=== PATIENT | male | born 1975 | race Caucasian/White ===

== ENCOUNTER 2023-05-13 14:44 | Outpatient (CLI) | payer OTHER, SELFPAY ==
--- NOTE | ~2023-05-13 | US_ITS ---
EXAMINATION: US renal BI DATE: 05/13/2023 16:53 INDICATION: Left kidney stone post lithotripsy TECHNIQUE: Multiple ultrasound grayscale images of the kidneys were obtained. COMPARISON: None. FINDINGS: The right kidney measures 9.9 x 5.3 x 5.9 cm. The left kidney measures 10.5 x 5.5 x 5.5 cm. The kidne ys demonstrate normal echogenicity. There is no hydronephrosis in either kidney. No stones identifie d. The bladder is normal with calculated prevoid bladder volume of 360 mL calculated postvoid residua l volume of 13 mL. IMPRESSION: 1. Normal kidneys without hydronephrosis. Reviewed, dictated and finalized at location A.
== END 2023-05-13 14:45 | disposition home or self-care (01) ==
PROVIDERS: Visit Provider Urology
DX: N20.0 Calculus of kidney (principal)
CPT/HCPCS: 76775

== ENCOUNTER 2023-12-27 00:30 | Day surgery (SDC) | payer OTHER, SELFPAY ==
[2023-12-14 13:45] VITALS: BMI 48.0
[2023-12-27] MEDS: LACTATED RINGERS 1,000 ML 150 ML IV CONT (09:39)
--- NOTE | 2023-12-27 10:17 | WPDANESEPPF ---
Anes - Initial Pre Proc Eval Procedure: Operation Date: 12/27/23 11:00 Proposed Procedures p Screening Colonoscopy - Scar Bynum MD Date/Time: 12/27/23 10:17 Surgeon: Scar Bynum MD Pre Op Diagnosis: neoplasm screening Patient Data Age: 48 Gender: M Height: 1.78 m Weight: 157.1 kg Allergies Allergy/AdvReac Type Severity Reaction Status Date / Time No Known Allergies Allergy Verified 12/27/23 09:30 Home Medications Medication Instructions Recorded Confirmed Type albuterol sulfate 90 mcg/actuation 90 mcg inhalation PRN PRN Wheezing 12/14/23 12/14/23 History aerosol inhaler alprazolam 1 mg tablet 1 mg PO BID PRN Anxiety 12/14/23 12/14/23 History amiodarone 200 mg tablet 200 mg PO DAILY 12/14/23 12/14/23 History apixaban 5 mg tablet (Eliquis) 5 mg PO DAILY 12/14/23 12/27/23 History carvedilol 6.25 mg tablet (Coreg) 6.25 mg PO BID 12/14/23 12/14/23 History diltiazem HCl 180 mg capsule,24 180 mg PO DAILY 12/14/23 12/14/23 History hr,extended release furosemide 40 mg tablet 40 mg PO DAILY 12/14/23 12/14/23 History methocarbamol 500 mg tablet 500 mg PO DAILY 12/14/23 12/14/23 History montelukast 10 mg tablet 10 mg PO DAILY 12/14/23 12/14/23 History sacubitril 24 mg-valsartan 26 mg 24 - 26 tablet PO BID 12/14/23 12/14/23 History tablet (Entresto) Patient hx anesthesia problems: none Family hx anesthesia problems: none Results Review: All pre-operative results and documents have been reviewed as part of the pre-operative evaluation. [facility] Social History Social History Smoking status: Former smoker Tobacco type: cigarettes and cigars Alcohol intake: current Drinks per week: 15 Substance use type: marijuana Other substance usage details: once or twice a year Living arrangements: alone Spiritual care concerns: No Anes - Eval Final PreProcedure Day of Procedure 12/27/23 10:17 Patient weight: super morbidly obese Heart: regular rate and rhythm Lungs: clear to auscultation Airway: Mallampati scale class II Neurological: alert and oriented Last oral intake: >/= 8 hours ASA classification: IV Emergent: no Anesthetic plan: proceed Anesthesia type and monitoring: general GIVS and standard monitoring Results Review: All pre-operative results and documents have been reviewed as part of the pre-operative evaluation. Informed Consent: The patient's anesthetic plan and its attendant risks and benefits were discussed with the patient/family/POA. Questions were solicited and answers provided to the satisfaction of the patient/family/POA.
--- NOTE | 2023-12-27 10:20 | PM.HPGS ---
History of Present Illness History of Present Illness Consent: Risks, benefits, and alternatives have been discussed and questions answered. Patient agrees to proceed with procedure. Chief complaint: neoplasm screening Narrative: Burke Triana is a 48 year old male here for first screening colonoscopy Review of Systems Review of Systems: All systems reviewed & are unremarkable except as noted in HPI and below PMFSH Past Medical History Medical History (Updated 12/27/23 @ 10:23 by Scar Bynum MD) Colon cancer screening Social History Social History Smoking status: Former smoker Tobacco type: cigarettes and cigars Alcohol intake: current Drinks per week: 15 Substance use type: marijuana Other substance usage details: once or twice a year Living arrangements: alone Spiritual care concerns: No Meds Home Medications and Allergies Home Medications Medication Instructions Recorded Confirmed Type albuterol sulfate 90 mcg/actuation 90 mcg inhalation PRN PRN Wheezing 12/14/23 12/14/23 History aerosol inhaler alprazolam 1 mg tablet 1 mg PO BID PRN Anxiety 12/14/23 12/14/23 History amiodarone 200 mg tablet 200 mg PO DAILY 12/14/23 12/14/23 History apixaban 5 mg tablet (Eliquis) 5 mg PO DAILY 12/14/23 12/27/23 History carvedilol 6.25 mg tablet (Coreg) 6.25 mg PO BID 12/14/23 12/14/23 History diltiazem HCl 180 mg capsule,24 180 mg PO DAILY 12/14/23 12/14/23 History hr,extended release furosemide 40 mg tablet 40 mg PO DAILY 12/14/23 12/14/23 History methocarbamol 500 mg tablet 500 mg PO DAILY 12/14/23 12/14/23 History montelukast 10 mg tablet 10 mg PO DAILY 12/14/23 12/14/23 History sacubitril 24 mg-valsartan 26 mg 24 - 26 tablet PO BID 12/14/23 12/14/23 History tablet (Entresto) Allergies Allergy/AdvReac Type Severity Reaction Status Date / Time No Known Allergies Allergy Verified 12/27/23 09:30 Exam Const: General: comfortable and no acute distress HENMT: Face/Nose/Sinus: Normal nares present Eyes: General: appearance normal, both eyes and all related structures Neck: Neck: no JVD Resp: Auscultation: clear to auscultation bilaterally Cardio: Rate: regular rate Rhythm: regular rhythm GI: Inspection: non-distended GI Palp: Yes Soft to palpation Skin: General skin exam: normal color Neuro: General: gait normal Speech: normal speech Extrem: General: normal to inspection Psych: Mental Status: mental status grossly normal Assessment and Plan Assessment and plan (1) Colon cancer screening: Code(s): Z12.11 - Encounter for screening for malignant neoplasm of colon Status: Acute Assessment and Plan: colonoscopy
[2023-12-27 10:37] VITALS: BP 122/62; PULSE 76; RESP 18; O2SAT 98
[2023-12-27 10:47] VITALS: BP 128/67; PULSE 76; RESP 19; O2SAT 98
[2023-12-27 10:57] VITALS: BP 129/66; PULSE 77; RESP 18; O2SAT 100
== END 2023-12-27 11:05 | disposition home or self-care (01) ==
PROVIDERS: Visit Provider Internal Medicine Gastroenterology
PROC: 0DJD8ZZ Inspection of Lower Intestinal Tract, Via Natural or Artificial Opening Endoscopic (ICD-10-PCS; CPT 45378; principal; 2023-12-27 11:00)
DX: Z12.11 Encounter for screening for malignant neoplasm of colon (principal); D12.4 Benign neoplasm of descending colon; D12.5 Benign neoplasm of sigmoid colon; K64.8 Other hemorrhoids; K57.30 Diverticulosis of large intestine without perforation or abscess without bleeding; F12.90 Cannabis use, unspecified, uncomplicated; E66.01 Morbid (severe) obesity due to excess calories; Z68.42 Body mass index [BMI] 45.0-49.9, adult; Z79.51 Long term (current) use of inhaled steroids; Z79.01 Long term (current) use of anticoagulants; Z87.891 Personal history of nicotine dependence
CPT/HCPCS: 45385; 88305; J2704; J7120

== ENCOUNTER 2025-03-12 10:33 | Inpatient (IN) | payer OTHER, SELFPAY ==
[2025-03-12] VITALS (8 sets, daily range): BP systolic 107–132; BP diastolic 60–65; PULSE 78–81; RESP 16–18; TEMP 36.4–37.6; O2SAT 96–100; BMI 52.6
--- NOTE | ~2025-03-12 | US_ITS ---
EXAMINATION: US arterial ankle brachial ind DATE: 03/12/2025 16:11 INDICATION: Chronic ulcerations at the bilateral lower limbs TECHNIQUE: Segmental pressures and plethysmographic and Doppler waveforms of the brachial and lower e xtremity arteries were obtained. COMPARISON: None. FINDINGS: Right and left brachial artery pressures of 137 mm Hg and 139 mm Hg, respectively, are concordant (no rmal difference <= 30 mmHg). The right ankle-brachial index (CALIN) is 1.15 (normal >= 0.9-1.0). The right great toe-brachial index (TBI) is 0.90 (normal >= 0.65). Arterial Doppler waveforms are biphasic with brisk systolic upstrokes at both right posterior tibial and dorsalis pedis arteries. The left CALIN is 0.87. The left TBI is 0.60. Arterial Doppler waveforms are biphasic with brisk systol ic upstrokes at both left posterior tibial and dorsalis pedis arteries. IMPRESSION: 1. 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 2. No significant arterial occlusive disease in the right lower limb with normal right CALIN and TBI Reviewed, dictated and finalized at location A. IMPRESSION: 1. 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 2. No significant arterial occlusive disease in the right lower limb with jeramy l right CALIN and TBI
--- NOTE | ~2025-03-12 | CT_ITS ---
Procedure: CT LE LT wo con Ordering provider: Misa Cruz APRN History: . evaluate for abscess, LLE, has CLAUDIA . Comparison: None. Technique: Thin slice axial CT of the No IV contrast was given. Sagittal and coronal reformatted imag es were also obtained and reviewed. Radiation reduction technique utilized. The dose-length product w as 1177.06 mGy-cm. Findings: BONES: No acute osseous abnormal masses. No fracture or osteomyelitis seen. JOINT SPACES: Severe osteoarthritic changes of the left knee. SOFT TISSUES: Subcutaneous varicose veins are noted anteriorly. Edema is seen in the subcutaneous tissues of the leg with thickening of the skin. Minimal fluid colle ction seen anteriorly with no definite abscess formation. Similar appearances seen on the dorsum of t he foot. IMPRESSION: No evidence of fracture or osteomyelitis. Edema in the subcutaneous tissues of the leg and foot with thickening of the skin. No definite absces s formation. Follow-up advised. Severe osteoarthritic changes of the left knee. Varicose vein is seen in the subcutaneous tissues. Reviewed, dictated and finalized at location A. IMPRESSION: No evidence of fracture or osteomyelitis. Edema in the subcutaneous tissues of the leg and foot with thickening of the sk in. No definite abscess formation. Follow-up advised. Severe osteoarthritic changes of the left knee. Varicose vein is seen in the subcutaneous tissues.
--- NOTE | ~2025-03-12 | US_ITS ---
BILATERAL LOWER EXTREMITY VENOUS ULTRASOUND Ordering provider: Sophia Bonds APRN History: . ulcerations of BLE, chronic . Comparison: None. FINDINGS: RIGHT LOWER EXTREMITY VEINS: --COMMON FEMORAL: Patent and free of thrombus. Normal compressibility, phasic flow and augmentation. --PROXIMAL SUPERFICIAL FEMORAL: Patent and free of thrombus. Normal compressibility, phasic flow and augmentation. --DISTAL SUPERFICIAL FEMORAL: Patent and free of thrombus. Normal compressibility, phasic flow and au gmentation. --POPLITEAL: Patent and free of thrombus. Normal compressibility, phasic flow and augmentation. --POSTERIOR TIBIAL: Patent and free of thrombus. Normal compressibility, phasic flow and augmentation . LEFT LOWER EXTREMITY VEINS: --COMMON FEMORAL: Patent and free of thrombus. Normal compressibility, phasic flow and augmentation. --PROXIMAL SUPERFICIAL FEMORAL: Patent and free of thrombus. Normal compressibility, phasic flow and augmentation. --DISTAL SUPERFICIAL FEMORAL: Patent and free of thrombus. Normal compressibility, phasic flow and au gmentation. --POPLITEAL: Patent and free of thrombus. Normal compressibility, phasic flow and augmentation. --POSTERIOR TIBIAL: Patent and free of thrombus. Normal compressibility, phasic flow and augmentation . IMPRESSION: Negative bilateral lower extremity venous US. No deep vein thrombosis. Reviewed, dictated and finalized at location A.
--- NOTE | ~2025-03-12 | XR_ITS ---
EXAM/PROCEDURE: XR chest 2V - 03/12/2025 11:25 CDT HISTORY: 49 years old Male with chest pain TECHNIQUE: Two view(s) of the chest. COMPARISON: None available. FINDINGS: LUNGS/ PLEURA: Mild vascular congestion with increased interstitial markings. HEART/ MEDIASTINUM: Mild cardiomegaly. BONES: Degenerative changes. OTHER: Visualized upper abdomen is unremarkable. Dual lead cardiac pacemaker. IMPRESSION: Mild pulmonary edema. Superimposed infection cannot be excluded. Reviewed, dictated and finalized at location A.
--- NOTE | ~2025-03-12 | US_ITS ---
EXAMINATION: US renal BI DATE: 03/12/2025 16:15 INDICATION: Acute versus chronic kidney disease TECHNIQUE: Multiple ultrasound grayscale images of the kidneys were obtained. COMPARISON: None. FINDINGS: The right kidney measures 11.3 x 6.1 x 5.5 cm. The left kidney measures 11.4 x 6.9 x 5.1 cm. The kidn eys demonstrate normal echogenicity. There is no hydronephrosis in either kidney. No stones identifi ed. The bladder is normal. IMPRESSION: 1. Normal kidneys without hydronephrosis. Reviewed, dictated and finalized at location A.
--- NOTE | 2025-03-12 10:35 | ECG_ITS ---
Test Date: 2025-03-12 10:41:09 Measurements Intervals [place] Rate: 79 P: 218 HI: 177 QRS: 21 QRSD: 114 T: 27 QT: 400 QTc: 460 Interpretive Statements ELECTRONIC ATRIAL PACEMAKER ] ABNORMAL RHYTHM ECG No previous ECG available for comparison Electronically Signed On 03-13-2025 07:29:45 CDT by Avinash Martins M.D.
--- OUTSIDE RECORDS SUMMARY | 2025-03-12 10:41 | XMS_ITS | Clinical Summary ---
Author Organization [facility] Address [address] [place] [address] Care Team Providers Care Labor Custodian Name Role Phone Unavailable Primary Care Provider Unavailabl e Source Comments [facility],non-owned Affiliates and Associated Physician Practices is amultiple site organization consisting of ambulatory clinics and hospital sitesin [place], [place], [place] and [place]. This disclosure is being madepursuant to the Care Everywhere program and may not contain all information available regarding this patient. Last updated 18.[facility] Medications * Be aware that medications may not be up to date on this document. Alwaysverify current medications with the patient. naproxen sodium (ALEVE) 220 MG tablet Take 220 mg by mouth 3 times daily as needed. Active ibuprofen (MOTRIN) 200 MG tablet Take 200 mg by mouth every 6 hours as needed. Active Active Problems Problem Noted Date Diagnosed Date Ulcer of calf 02/20/2014 Social History Tobacco Use Types Packs/Day Years Used Date Smoking Tobacco: Never Smokeless Tobacco: Current Alcohol Use Standard Drinks/Week Comments Not Asked 0 (1 standard drink = 0.6 oz pur e alcohol) Sex and Gender Information Value Date Recorded Sex Assigned at Not on file Legal Sex Male 7:58 AM CDT Gender Identity Not on file Sexual Orientation Not on file Last Filed Vital Signs Vital Sign Reading Time Taken Comments Blood Pressure 155/86 05/15/2014 2:06 PM CDT Pulse 77 05/15/2014 2:06 PM CDT Temperature 36.8 C (98.3 F) 05/15/2014 2:06 PM CDT Respiratory Rate 22 05/15/2014 2:06 PM CDT Oxygen Saturation - - Inhaled Oxygen Concentration - - Weight - - Height - - Body Mass Index - - Plan of Treatment Health Maintenance Due Date Last Done Comments COLOGUARD (AGES 45-75) - COL ON CA SCREENING 1974 COLON MONITORING 1974 COLONOSCOPY - COLON CA SCREENING 1974 CT COLONOGRAPHY - COLON CA SCREENING 1974 Colorectal Cancer Screening 1974 FIT - COLON CA SCREENING 1974 FLEX SIG - COLON CA SCREENING 1974 LIPID TESTING 1974 HIV SCREENING 1989 HEPATITIS C SCREENING 10/18/1992 DTAP/TDAP/TD VACCINES (1 - Tdap) 1993 HEPATITIS B VACCINE (1 of 3 - 19+ 3-dose series) 1993 COVID-19 VACCINE (1 - 2023-2 5 season) 2024 DEPRESSION SCREENING 09/05/2024 PNEUMOCOCCAL VACCINE 50+ (1 of 1 - PCV) 2024 ZOSTER VACCINE (1 of 2) 2024 INFLUENZA VACCINE (Season Ended) 2025 HIB VACCINE Aged Out No longer eligi ble based on patient's age to complete this topic HPV VACCINE Aged Out No longer eligi ble based on patient's age to complete this topic MENINGOCOCCAL (Group B) VACC INE SHARED DECISION-MAKING Aged Out No longer eligibl e based on patient's age to complete this topic MENINGOCOCCAL GROUPS A/C/Y/W VACCINE Aged Out No longer eligible b ased on patient's age to complete this topic Insurance [facility] SELF PAY NO INSURANCE Member Subscriber Plan / Payer (Ef fective for All Dates) Name:Burke Avila Member ID:Not on file Relation to Subscriber:Not on file Name:SKIP AVILAHEN Subscriber ID:Not on file Address: [address] [place], [place] [id number] Payer ID:Not on file Group ID:Not on file Type:Self Pay Address: [place], [place] [facility] SELF PAY NO INSURANCE Member Subscriber Plan / Payer (Ef fective for All Dates) Name:Burke Avila Member ID:Not on file Relation to Subscriber:Not on file Name:BURKE AVILA Subscriber ID:Not on file Address: [address] [place], [place] [id number] Payer ID:Not on file Group ID:Not on file Type:Self Pay Address: [place], [place] SELF PAY NO INSURANCE Member Subscriber Plan / Payer (Ef fective for All Dates) Name:Burke Avila Member ID:Not on file Relation to Subscriber:Not on file Name:BURKE AVILA Subscriber ID:Not on file Address: [address] [place] [id number] Payer ID:Not on file Group ID:Not on file Type:Self Pay Address: [place], [place]
--- OUTSIDE RECORDS SUMMARY | 2025-03-12 10:41 | XMS_ITS | Referral Summary ---
Author Organization [facility] Address [address] [place] [id number] Care Team Providers Care Research Biostatistician Name Role Phone Alyssa Kemp SWATCH PASTER Primary Care Provider [phone] Dalia Bennett MD Unavailable [phone] Encounters Date Type Department Care Team Description 01/24/2025 Telephone [facility] [place] [address] [place] [address] Alyssa Kemp NP Referral Request from Last 3 Months Allergies No known active allergies Medications Eliquis 5 mg tablet Take 1 tablet (5 mg total) by mouth 2 (two) times a day 11/27/19 23 Active carvediloL (COREG) 6.25 mg tablet Take 1 tablet (6.25 mg total) by mouth 2 (two) times a day 09/27/19 24 Active Entresto 24-26 mg tablet Take 1 tablet by mouth 2 (two) times a day 09/27/19 24 Active furosemide (LASIX) 40 mg tablet Take 1 tablet (40 mg total) by mouth 2 (two) times a day 09/27/19 24 Active magnesium oxide (MAG-OX) 400 mg (241.3 mg elemental magnesium) tablet Take 1 tablet (400 mg total) by mouth 2 (two) times a day Active ALPRAZolam (XANAX) 1 mg tablet Take 1 tablet (1 mg total) by mouth 3 (three) times a day as needed for anxiety Active diltiazem (TIAZAC) 360 mg 24 hr capsule Take by mouth daily 02/13/20 24 Active dofetilide (TIKOSYN) 250 mcg capsule Take 1 capsule (250 mcg total) by mouth 2 (two) times a day 03/26/20 24 Active montelukast (SINGULAIR) 10 mg tablet TAKE 1 TABLET(10 MG) BY MOUTH EVERY NIGHT 30 tablet 4 11/06/19 25 Active Spiriva Respimat 1.25 mcg/actuation inhaler INHALE 2 PUFFS BY MOUTH DAILY 4 g 5 12/11/19 25 Active albuterol HFA (PROVENTIL HFA,VENTOLIN HFA,PROAIR HFA) 90 mcg/actuation inhaler INHALE 2 PUFFS BY MOUTH EVERY 6 HOURS NEEDED FOR WHEEZING OR SHORTNESS OF BREATH 18 g 5 02/26/20 25 Active Advair Diskus 500-50 mcg/dose diskus inhaler INHALE 1 PUFF BY MOUTH TWICE DAILY. RINSE MOUTH WITH WATER AFTER USE. DO NOT SWALLOW 60 each 5 02/28/20 25 Active Advair Diskus 500-50 mcg/dose diskus inhaler INHALE 1 PUFF BY MOUTH TWICE DAILY. RINSE MOUTH WITH WATER AFTER USE. DO NOT SWALLOW 60 each 5 09/19/19 25 025 Discontinued albuterol HFA (PROVENTIL HFA,VENTOLIN HFA,PROAIR HFA) 90 mcg/actuation inhaler INHALE 2 PUFFS BY MOUTH EVERY 6 HOURS NEEDED FOR WHEEZING OR SHORTNESS OF BREATH 18 g 5 10/03/19 25 025 Discontinued Active Problems Problem Noted Date Diagnosed Date Body aches 11/15/2024 Elevated serum creatinine 10/15/2024 Atrial fibrillation and flutter 11/17/2023 A-fib 11/04/2023 Acute left ankle pain 10/13/2023 Subacute cough 06/08/2023 Acute pain of right knee 06/08/2023 Overview (06/08/2023): tylenol for pain. rest and elevated. notify the office without improvement of symptoms. Kidney stone 04/12/2023 Morbid obesity with BMI of 50.0-59.9, adult 04/0 01/2023 Assessment & Plan (11/15/2024 2:39 PM CDT): Discussed the patient's BMI. The BMI is above average. BMI management plan is completed. BMI Follow-up includes: nutrition counseling, exercise counseling and education provided. Assessment & Plan (10/15/2024 11:05 AM WINDOWS ADMIN): Discussed the patient's BMI. The BMI is above average. BMI management plan is completed. BMI Follow-up includes: nutrition counseling, exercise counseling and education provided. Assessment & Plan (04/12/2024 10:40 AM CDT): Discussed the patient's BMI. The BMI is above average. BMI management plan is completed. BMI Follow-up includes: nutrition counseling, exercise counseling and education provided. Assessment & Plan (10/13/2023 9:55 AM WINDOWS ADMIN): Discussed the patient's BMI. The BMI is above average. BMI management plan is completed. BMI Follow-up includes: nutrition counseling, exercise counseling and education provided. Assessment & Plan (06/08/2023 10:14 AM CDT): Discussed the patient's BMI. The BMI is above average. BMI management plan is completed. BMI Follow-up includes: nutrition counseling, exercise counseling and education provided. Assessment & Plan (04/12/2023 10:39 AM CDT): Discussed the patients BMI: The BMI is above average BMI management is complete. BMI follow-up includes: Nutrition Counseling and education provided Assessment & Plan (12/08/2022 10:21 AM CDT): Discussed the patients BMI: The BMI is above average BMI management is complete. BMI follow-up includes: Nutrition Counseling and education provided Hypertension, essential 12/08/2022 Moderate persistent asthma without complication 12/08/2022 Screening for thyroid disorder 12/08/2022 Presence of cardiac pacemaker 01/21/2022 Sinoatrial node dysfunction 07/10/2021 Unspecified atrial fibrillation 06/11/2021 Obstructive sleep apnea syndrome in adult 2020 Snoring 12/16/2020 Asthma 12/30/2017 Edema 10/06/2015 Morbid obesity 10/06/2015 Atrial flutter 10/06/2015 Ulcer of calf 02/20/2014 Resolved Problems Problem Noted Date Diagnosed Date Resolved Date Chronic venous hypertension (idiopathic) with ulcer of unspecified lower extremity (CODE) 10/06/2015 12/08/2022 Immunizations Immunization Administration Dates Next Due Influenza, Unspecified 10/15/2024(Deferr ed: Patient Refused),10/13/2023(Deferred: Patient Refused),09/05/2023(Deferred: Patient Refused),09/05/2023(Deferred: Patient Refused),09/05/2023(Deferred: Patient Refused),06/08/2023(Deferred: Patient Refused),04/12/2023(Deferred: Patient Refused),12/07/2022(Deferred: Patient Refused),10/06/2021(Deferred: Patient Refused),10/06/2021(Deferred: Patient Refused) Social History Tobacco Use Types Packs/Day Years Used Date Smoking Tobacco: Never Smokeless Tobacco: Current Chew Tobacco Cessation:Ready to Q uit: Not Asked; Counseling Given: Not Answered AUDIT-C Answer Date Recorded Q1: How often do you have a drink containing alc ohol? Monthly or less 11/17/2023 Q2: How many drinks containi ng alcohol do you have on a typical day when you are drinking? 1 or 2 11/17/2023 Q3: How often do you have si x or more drinks on one occasion? Never 11/17/2023 PHQ-2 Answer Date Recorded PHQ-2 Total Score (If total score is 3 or more points, staff should administer the PHQ-9) 0 11/15/2024 PHQ-9 Answer Date Recorded PHQ-9 Total Score 0 11/17/2023 Personal Safety Answer Date Recorded Have you ever been in or are you currently in a harmful physical or emotional relationship or is someone making you feel afraid or unsafe? Denies 11/17/2023 Sex and Gender Information Value Date Recorded Sex Assigned at Not on file Legal Sex Male 9:33 AM CDT Gender Identity Not on file Sexual Orientation Not on file Last Filed Vital Signs Vital Sign Reading Time Taken Comments Blood Pressure 118/60 11/15/2024 2:36 PM CDT Pulse 78 11/15/2024 2:36 PM CDT Temperature 37.8 C (100 F) 11/15/2024 2:36 PM CDT Respiratory Rate 20 11/01/2024 10:46 AM WINDOWS ADMIN Oxygen Saturation 96% 11/15/2024 2:36 PM CDT Inhaled Oxygen Concentration - - Weight 169.6 kg (374 lb) 11/15/2024 2:36 PM CDT Height 177.8 cm (5' 10) 11/15/2024 2:36 PM CDT Body Mass Index 53.66 11/15/2024 2:36 PM CDT Plan of Treatment Not on file Procedures Procedure Name Priority Date/Time Associated Diagnosis Comments PSA SCREEN Routine 07/27/2024 Screening for prostate cancer COLONOSCOPY Routine 12/27/2023 7:27 AM CDT from Last 3 Months or Most Recently Relevant to Health Maintenance Results * PSA screen (07/27/2024) SCRIBED PSA, Serum 0.48 0.00 - 4.00 EXTERNAL LAB Blood 07/27/2024 Alyssa Kemp NP LAB BLOOD ORDERABLES Final Re sult EXTERNAL LAB * Colonoscopy (12/27/2023 7:27 AM CDT) Anatomical Region Laterality Modality Other Historical Provider ENDOSCOPY PROCEDURES Sophie l Result from Last 3 Months or Most Recently Relevant to Health Maintenance Insurance [facility] Care Teams Research Biostatistician Relationship Specialty Start Date End Date Alyssa Kemp NP [address] [address] PCP - General Internal Medicine 12/08/22 Dalia Bennett MD [address] [place] [address] Consulting Physician Cardiology 11/18/23
--- OUTSIDE RECORDS SUMMARY | 2025-03-12 10:41 | XMS_ITS | Data Portability ---
Author Organization [place] [facility] [employer], Main Office Address [address] [place] [address] Assessment Encounter Date Assessment Date Assessment LastModified by Organization Details LastModified Time 04/11/2024 04/11/2024 Assessment: Moderate OSAHS, AHI = 29 PLMD Plan: The following were reviewed and explained to the patient: primary care/referral note [facility] home sleep study 10/28/23 AHI = 29 [facility] titration sleep study 04/06/24 sleep onset = 16.5 minutes, REM onset = 104 minutes, ResMed medium AirFit N30i nasal mask @ 10 cmH2O, PLMI = 0.0 Educated the patient on problems and solutions associated with positive airway pressure (PAP) use. Difficulty tolerating pressure, mask leaks, intolerance of interface, nasal congestion, claustrophobic response, dry mouth, and unintentional mask removal during sleep were covered. ResMed Air Sense 11 auto set unit with heated humidifier, supplies and ResMed medium AirFit N30i nasal mask @ 10 cmH2O ordered. Further titration will be based on clinical response. Provided the patient with a list of local home care stores where positive airway pressure (PAP) units, accoutrement, and services are available. Home care store selection is based on patient's insurance carrier. Patient will setup an appointment with [facility] for supplies and pressure adjustments. A major predictor of success with use of PAP is follow-up with both the respiratory supplier and the treating physician. The respiratory supplier optimally will follow-up within two weeks after starting use while the treating physician optimally will follow-up within 90 days after starting therapy to assess adherence and effectiveness of treatment. The download results can show the treating physician information about adherence to treatment, residual AHI while on treatment and presence of large mask leakage. This information is especially helpful if the patient has residual sleepiness despite treatment. General information on sleep disordered breathing, evaluation of sleep disordered breathing, treatment with PAP therapy, and living with PAP therapy were covered. We discussed with the patient the impact of weight on: Sleep disordered breathing Hypertension CHF Renal calculi Venous stasis We discussed with the patient the benefit of PAP therapy on: Sleep disordered breathing Anxiety Hypertension Atrial flutter/fibrilla tion CHF Educated the patient on sleep hygiene measures. Relaxing rituals to rest easy, understanding foods with positive and negative impact on sleep, creating a peaceful sleep environment, timing of exercise, using herbal sleep aids, and practicing sleep-friendly meditation were covered. To determine how much sleep is needed, the patient will assess where he falls on the spectrum, examine what lifestyle factors such as work schedules and stress are affecting the quality and quantity of sleep. In general, adults need 7-9 hours of sleep. Educated the patient regarding foods that promote sleep. These include but are not limited to cherries, bananas, toast, oatmeal, and warm milk. Educated the patient regarding foods and drinks to avoid before bedtime. These include but are not limited to aged cheese, chocolate, spicy foods, tomato-based sauces, soy, ginseng tea and processed meat. Advocated influenza vaccination annually and pneumonia vaccination in 2039. Advocated weight loss through diet and exercise. Patient's ideal body weight according to height and gender is up to 180 lbs. Encouraged patient to adjust caloric intake to maintain/achieve ideal body weight, emphasizing on fruits, vegetables, whole grains, and fat-free or low-fat products. These include lean meats, poultry, fish, beans, eggs, and nuts and foods that are low in saturated fats, trans-fats, cholesterol, salt (sodium), and glycemic index. Stressed the importance of regular exercise up to the patient's capacity limits. In this case, we recommend 20 min daily walking, 2 days a week of resistance training. Patient to monitor BP daily and bring records to PCP for further management. Follow-up: 3 months, July 2024 [email or web address] Not available 04/11/2024 10:43:50 07/12/2024 07/12/2024 Assessment: Rhinitis Moderate OSAHS, AHI = 29 Plan: The following were reviewed and explained to the patient: [facility] home sleep study 10/28/23 AHI = 29 [facility] titration sleep study 04/06/24 sleep onset = 16.5 minutes, REM onset = 104 minutes, ResMed medium AirFit N30i nasal mask @ 10 cmH2O, PLMI = 0.0 PAP compliance downloaded and interpreted x 20 minutes. Data reviewed and explained to the patient. Average apnea/hypopnea index (AHI) is 1.4. Patient used PAP > 4 hours 87% of the time. PAP is set at 10 cmH2O. PAP will remain at 10 cmH2O. Keep ramp start at 4 cmH2O. Keep ramp duration at 45 minutes. Keep EPR off. Oxygen supplementation: none Keep humidity level at 4. Keep tube temperature at 80 F. Patient is benefiting from PAP therapy. Encouraged patient to maintain PAP use more than 70% of the time. Statement of PAP use and benefits will be sent to the home care store. Educated the patient on problems and solutions associated with positive airway pressure (PAP) use. Difficulty tolerating pressure, mask leaks, intolerance of interface, nasal congestion, claustrophobic response, dry mouth, and unintentional mask removal during sleep were covered. Provided the patient with a list of local home care stores where positive airway pressure (PAP) units, accoutrement, and services are available. Home care store selection is based on patient's insurance carrier. Patient will setup an appointment with [facility] for supplies and pressure adjustments. A major predictor of success with use of PAP is follow-up with both the respiratory supplier and the treating physician. The respiratory supplier optimally will follow-up within two weeks after starting use while the treating physician optimally will follow-up within 90 days after starting therapy to assess adherence and effectiveness of treatment. The download results can show the treating physician information about adherence to treatment, residual AHI while on treatment and presence of large mask leakage. This information is especially helpful if the patient has residual sleepiness despite treatment. General information on sleep disordered breathing, evaluation of sleep disordered breathing, treatment with PAP therapy, and living with PAP therapy were covered. We discussed with the patient the impact of weight on: Sleep disordered breathing Hypertension CHF Renal calculi Venous stasis We discussed with the patient the benefit of PAP therapy on: Sleep disordered breathing Anxiety Hypertension Atrial flutter/fibrilla tion CHF Educated the patient on sleep hygiene measures. Relaxing rituals to rest easy, understanding foods with positive and negative impact on sleep, creating a peaceful sleep environment, timing of exercise, using herbal sleep aids, and practicing sleep-friendly meditation were covered. To determine how much sleep is needed, the patient will assess where he falls on the spectrum, examine what lifestyle factors such as work schedules and stress are affecting the quality and quantity of sleep. In general, adults need 7-9 hours of sleep. Educated the patient regarding foods that promote sleep. These include but are not limited to cherries, bananas, toast, oatmeal, and warm milk. Educated the patient regarding foods and drinks to avoid before bedtime. These include but are not limited to aged cheese, chocolate, spicy foods, tomato-based sauces, soy, ginseng tea and processed meat. Advocated influenza vaccination annually and pneumonia vaccination in 2039. Advocated weight loss through diet and exercise. Patient's ideal body weight according to height and gender is up to 180 lbs. Encouraged patient to adjust caloric intake to maintain/achieve ideal body weight, emphasizing on fruits, vegetables, whole grains, and fat-free or low-fat products. These include lean meats, poultry, fish, beans, eggs, and nuts and foods that are low in saturated fats, trans-fats, cholesterol, salt (sodium), and glycemic index. Stressed the importance of regular exercise up to the patient's capacity limits. In this case, we recommend 20 min daily walking, 2 days a week of resistance training. Patient to monitor BP daily and bring records to PCP for further management. Follow-up: 1 year, July 2025 [email or web address] Not available 07/12/2024 14:37:59 Plan of Treatment Reminders Order Date Submit Date Provider Last Modified By Organization Details Last Modified Time Details Appointments Any 30 2024 08:00A Raoul Franks MD Not available Not available Not available Lab urinalysi s, dipstick 2022 023 [email or web address] [facility] [place], [address] [facility] [address], [place], [address], 03/29/2023 15:51:46 culture, urine + sensitivi ty 2022 023 [facility] (Lab), [address] [place], [address], 04/04/2023 09:54:02 Referral None recorded. Procedures None recorded. Surgeries None recorded. Imaging US, renal [address] (Imaging), [address], [place], [address], 10/11/2023 11:28:10 Medication Orders None recorded. Patient TargetsNo targets recorded. Patient InstructionsNo instructions recorded. Reason for Referral None Reported. Results Created Date Observation Date Name Description Value Unit Range Abnormal Flag Note LastModifiedBy Organization Detail LastModifiedTime 03/29/2003/29/2023 urina lysis , dipst ick Leukocytes (reference range: negative jens/ l) Negati ve Not Available [facility] [address], [place], [address], 03/29/2023 15:32:05 03/29/20 23 03/29/2023 urina lysis , dipst ick Nitrite (reference rage: negative mg/dl) negati ve Not Available [facility] [address], [place], [address], 03/29/2023 15:32:05 03/29/2003/29/2023 urina lysis , dipst ick Urobilinogen (reference range: 0.2-1 mg/dl) 0.2 Not Available [facility] [address] [facility] [address], [place], [address], 03/29/2023 15:32:05 03/29/20 23 03/29/2023 urina lysis , dipst ick Protein (reference range: negative mg/dl) Negati ve Not Available [facility] [address], [place], [address], 03/29/2023 15:32:05 03/29/20 23 03/29/2023 urina lysis , dipst ick pH (reference range: 5-7) 5.0 Not Available [facility] [address], [place], [address], 03/29/2023 15:32:05 03/29/20 23 03/29/2023 urina lysis , dipst ick Blood (reference range: negative Ronny/ l) Small Not Available [facility] [address], [place], [address], 03/29/2023 15:32:05 03/29/20 23 03/29/2023 urina lysis , dipst ick Specific Cosby (reference range: 1.005-1.030) 1.020 Not Available [facility] [address], [place], [address], 03/29/2023 15:32:05 03/29/20 23 03/29/2023 urina lysis , dipst ick Ketone (reference range: negative mg/dl) Negati ve Not Available [facility] [address] [place] [address] [address], [place], [address], 03/29/2023 15:32:05 03/29/20 23 03/29/2023 urina lysis , dipst ick Bilirubin (reference range: negative mg/dl) Negati ve Not Available [facility] [address], [place], [address], 03/29/2023 15:32:05 03/29/20 23 03/29/2023 urina lysis , dipst ick Glucose (reference range: negative mg/dl) Negati ve Not Available [facility] [address], [place], [address], 03/29/2023 15:32:05 03/29/20 23 03/29/2023 urina lysis , dipst ick Appearance Clear Not Available [facility] [address], [place], [address], 03/29/2023 15:32:05 03/29/20 23 03/29/2023 urina lysis , dipst ick Color Yellow Not Available [facility] [address], [place], [address], 03/29/2023 15:32:05 03/29/20 23 03/28/2023 CT, abdom en + pelvi s, w/o contr ast No observ ation record ed. [email or web address] Not Available 2022 11:27:21 03/29/20 23 03/28/2023 XR, kidne y + urete r + bladd er No observ ation record ed. [email or web address] Not Available 2022 11:28:12 04/04/20 23 04/04/2023 XR, kidne y + urete r + bladd er No observ ation record ed. [email or web address] [facility] [address] [place], [address], 04/05/2023 09:15:59 04/19/20 23 04/19/2023 XR, kidne y + urete r + bladd er No observ ation record ed. [email or web address] [facility] [address] [place], [address], 04/25/2023 14:29:25 04/11/20 24 04/06/2024 polys omnog francesco, titra tion study No observ ation record ed. [email or web address] Not Available 2023 10:43:29 04/12/20 24 10/28/2023 home sleep study No observ ation record ed. [email or web address] Not Available 2023 16:10:26 04/12/20 24 10/28/2023 home sleep study No observ ation record ed. [email or web address] Not Available 2023 17:56:53 04/13/20 24 04/06/2024 polys omnog francesco, titra tion study No observ ation record ed. [email or web address] Not Available 2023 12:22:44 Result Notes None recorded. Problems Name Problem SNOMED Code Status Onset Date Resolution Date Notes Provider Name and Address Organization Details Recorded Time Kidney stone 03046860 Active 023 Ly Beltran MA null, Accountable 3 15:32:06 Obstructive sleep apnea syndrome 04895858 Active 024 Yemi Franks MD [address] 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 Procedures Surgical History Date Name Laterality Status Provider Name and Address Organization Details Recorded Time Pacemaker completed RASHEEDA Cast Accountable 03/29/2023 15:26:35 Imaging Results None recorded. Procedure Notes None recorded. Medical Equipment None Reported. Allergies No known drug allergies Medications Name Sig Start Date Stop Date Status Note LastModified by Organization Details LastModified Time sotalol 160 mg tablet TAKE 1 TABLET BY MOUTH TWICE DAILY 04/19 completed Not Available Not Available Not Available furosemide 40 mg tablet TAKE 1 TABLET BY MOUTH TWICE DAILY EVERY DAY active Not Available Not Available No t Available methocarbam ol 500 mg tablet TAKE 1 TABLET BY MOUTH FOUR TIMES DAILY NEEDED 04/11 completed Not Available Not Available Not Available nystatin 100,000 unit/mL oral suspension TAKE 5ML BY MOUTH TWICE DAILY 04/19 completed Not Available Not Available Not Available carvedilol 6.25 mg tablet TAKE 1 TABLET BY MOUTH TWICE DAILY active Not Available Not Available No t Available alprazolam 1 mg tablet TAKE 1 TABLET BY MOUTH THREE TIMES DAILY NEEDED FOR ANXIETY active Not Available Not Available No t Available amiodarone 200 mg tablet TAKE 1 TABLET BY MOUTH EVERY DAY 04/11 completed Not Available Not Available Not Available hydrocodone 5 mg-acetamin ophen 325 mg tablet TAKE 1 TABLET BY MOUTH EVERY 6 HOURS NEEDED 04/19 completed Not Available Not Available Not Available dofetilide 250 mcg capsule TAKE 1 CAPSULE BY MOUTH TWICE DAILY active Not Available Not Available No t Available diltiazem ER 360 mg capsule,24 hr,extended release TAKE 1 CAPSULE BY MOUTH EVERY DAY active Not Available Not Available No t Available guaifenesin 200 mg tablet TAKE 1 TABLET BY MOUTH EVERY 6 HOURS 04/19 completed Not Available Not Available Not Available diltiazem 120 mg tablet TAKE 1 TABLET BY MOUTH TWICE DAILY. STOP AMIODARON E 04/19 completed Not Available Not Available Not Available magnesium oxide 400 mg (241.3 mg magnesium) tablet TAKE 1 TABLET BY MOUTH TWICE DAILY active Not Available Not Available No t Available tamsulosin 0.4 mg capsule 04/19 completed Not Available Not Available Not Available benzonatate 100 mg capsule 04/11 completed Not Available Not Available Not Available oseltamivir 75 mg capsule TAKE 1 CAPSULE BY MOUTH TWICE DAILY FOR 5 DAYS 04/11 completed Not Available Not Available Not Available warfarin 5 mg tablet TAKE 1 AND 1/2 TABLETS BY MOUTH EVERY EVENING DIRECTED 04/19 completed Not Available Not Available Not Available flecainide 100 mg tablet TAKE 1 TABLET BY MOUTH TWICE DAILY 04/11 completed Not Available Not Available Not Available Advair Diskus 500 mcg-50 mcg/dose powder for inhalation INHALE 1 PUFF BY MOUTH TWICE DAILY. RINSE MOUTH WITH WATER AFTER USE. DO NOT SWALLOW active Not Available Not Available No t Available montelukast 10 mg tablet active Not Available Not Available Not Available furosemide 20 mg tablet TAKE 1 TABLET BY MOUTH EVERY DAY 04/11 completed Not Available Not Available Not Available methylpredn isolone 4 mg tablets in a dose pack FOLLOW PACKAGE DIRECTION S 04/11 completed Not Available Not Available Not Available albuterol sulfate HFA 90 mcg/actuati on aerosol inhaler INHALE 2 PUFFS BY MOUTH EVERY 6 HOURS NEEDED FOR WHEEZING OR SHORTNESS OF BREATH active Not Available Not Available No t Available ondansetron 4 mg disintegrat ing tablet 04/09 completed Not Available Not Available Not Available amoxicillin 875 mg-potassiu m clavulanate 125 mg tablet TAKE 1 TABLET BY MOUTH EVERY 12 HOURS FOR 10 DAYS 04/19 completed Not Available Not Available Not Available diltiazem 90 mg tablet TAKE 1 TABLET BY MOUTH EVERY 6 HOURS 04/19 completed Not Available Not Available Not Available quetiapine 50 mg tablet TAKE 1 TABLET BY MOUTH AT BEDTIME 04/19 completed Not Available Not Available Not Available Eliquis 5 mg tablet TAKE 1 TABLET BY MOUTH TWICE DAILY active Not Available Not Available No t Available Stimulant Laxative Plus 8.6 mg-50 mg tablet TAKE 2 TABLETS BY MOUTH ONCE A DAY 04/19 completed Not Available Not Available Not Available Entresto 24 mg-26 mg tablet TAKE 1 TABLET BY MOUTH TWICE DAILY active Not Available Not Available No t Available Spiriva Respimat 1.25 mcg/actuati on solution for inhalation INHALE 2 PUFFS BY MOUTH DAILY active Not Available Not Available No t Available Furoscix 80 mg/10 mL subcutaneou s wearable injector kit active Not Available Not Available Not Available Vitals Date Recorded Heart rate Body temperature Body mass index (BMI) Body weight Oxygen saturation Oxygen saturation in Arterial blood by Pulse oximetry Systolic And Diastolic Provider Name and Address Organization Details Last Updated DateTime 3 90 /min 98.1 [degF] 49.1 kg/m2 451403. 59 g 93 % 93 % 126/79 mm[Hg] Ly Beltran [place] [employer] [facility] [employer] 3 15:31:47 Date Recorded Body height Provider Name an d Address Organization Details Last Updated DateTime 03/29/2023 177.8 cm RASHEEDA Cast [facility] [employer] 03/29/2023 15:23:01 Date Recorded Heart rate Respiratory rate Provider N cesar and Address Organization Details Last Updated DateTime 04/11/2024 79 /min 15 /min Yemi Franks MD [address] [facility] [address], [place], [address], [place] [employer] [facility] [employer] 04/11/2024 10:49:38 Date Recorded Body height Body mass index (BMI) Body weight Heart rate Oxygen saturation Oxygen saturation in Arterial blood by Pulse oximetry Body temperature Systolic And Diastolic Provider Name and Address Organization Details Last Updated DateTime 4 177.8 cm 50.9 kg/m2 532368. 29 g 79 /min 97 % 97 % 98.1 [degF] 126/74 mm[Hg] Zora Rodriguez CMA [facility] [employer] [facility] 4 10:04:04 Date Recorded Body height Heart rate Body temperature Body mass index (BMI) Body weight Oxygen saturation Oxygen saturation in Arterial blood by Pulse oximetry Systolic And Diastolic Provider Name and Address Organization Details Last Updated DateTime 3 177.8 cm 95 /min 97.9 [degF] 51.7 kg/m2 496705. 25 g 96 % 96 % 145/93 mm[Hg] Ly Beltran MA [facility] [email or web address] [facility] 3 16:27:09 Date Recorded Heart rate Respiratory rate Provider Radhika cesar and Address Organization Details Last Updated DateTime 07/12/2024 78 /min 15 /min Yemi Franks MD [address] [facility] [address], [place], [address], [facility] [email or web address] [facility] 07/12/2024 14:38:54 Date Recorded Body height Body mass index (BMI) Body weight Heart rate Oxygen saturation Oxygen saturation in Arterial blood by Pulse oximetry Body temperature Systolic And Diastolic Provider Name and Address Organization Details Last Updated DateTime 4 177.8 cm 53.2 kg/m2 337006. 77 g 78 /min 98 % 98 % 98 [degF] 122/80 mm[Hg] Gela Olvera MA [facility] [employer] [facility] 4 14:19:08 Social History Question Answer Notes LastModified by Organizat ion Details LastModified Time Tobacco Smoking Status Former Smoker Chew Tobacco [facility] 04/11/2024 10:09:28 What Is Your Level Of Caffeine Consumption? None [email or web address] Information not available 03/29/2023 In The 14 Days Before Symptom Onset, Have You Had Close Contact With A Laboratory-confir med COVID-19 While That Case Was Ill? No Information not available 07/12/2024 In The 14 Days Before Symptom Onset, Have You Had Close Contact With A Person Who Is Under Investigation For COVID-19 While That Person Was Ill? No Information not available 07/12/2024 What Type Of Diet Are You Following? REGULAR Information not available 07/12/2024 Do You Have An Electrostatic Air Filter? No Information not available 07/12/2024 Do You Have A Humidifier? Yes Information not available 07/12/2024 Do You Have Moisture Problems In Your Home? No Information not available 07/12/2024 What Was The Date Of Your Most Recent Tobacco Screening? 07/12/2024 Information not available 07/12/2024 Do You Have Any Pets? Yes Information not available 07/12/2024 Do You Use Your Seat Belt Or Car Seat Routinely? Yes Information not available 07/12/2024 Do You Have Smoke And Carbon Monoxide Detectors In Your Home? Yes Information not available 07/12/2024 Are You Passively Exposed To Smoke? No Information no t available 07/12/2024 Do You Use Sunscreen Routinely? No Information not available 07/12/2024 Have You Recently Traveled Abroad? No Information not available 07/12/2024 Do You Have Any Dietary Restrictions? No Information not available 07/12/2024 Sex: Unknown Functional Status Question Answer Note LastModified by Organizat ion Details LastModified Time What is your level of alcohol consumption? Moderate [email or web address] Information not available 03/29/2023 Are you currently employed? No Information not available 07/12/2024 Have you been exposed to chemicals or toxins? not that aware of Information not available 07/12/2024 What is your exercise level? Occasional Information not available 07/12/2024 Mental Status Question Answer Note LastModified by Organization D etails LastModified Time Do you feel stressed (tense, restless, nervous, or anxious, or unable to sleep at night)? [id number] Information not available 07/12/2024 Family History Relationship Description Onset Age of this Age Resolved Age Notes LastModified by Organization Details LastModified Time Maternal Grandfather Kidney stone [email or web address] Not available 03/29/2023 15:24:42 Maternal Grandfather Malignant neoplasm of prostate [email or web address] Not available 2022 15:25:30 Mother Heart disease Not available 2022 15:24:59 Maternal Grandmother Myocardial infarction [email or web address] Not available 04/10 09:44:31 Paternal Grandmother Heart disease [email or web address] Not available 2023 09:44:41 Paternal Grandmother Malignant lymphoma [email or web address] Not available 2023 09:45:06 Paternal Grandfather Heart disease [email or web address] Not available 2023 09:45:23 Maternal Aunt Myocardial infarction [email or web address] Not available 04/10 09:45:54 Maternal Uncle Myocardial infarction [email or web address] Not available 04/10 09:45:57 Father Myocardial infarction [email or web address] Not available 04/10 09:47:12 Medical History Condition Response KIDNEY STONES Y HYPERTENSION Y ASTHMA Y Past Encounters Encounter ID Performer Location Encounter Start Date Encounter Closed Date Diagnosis/Indication Diagnosis SNOMED-CT Code Diagnosis ICD10 Code Diagnosis Note [id number] MD DANIE Sierra_THOR [place] [id number] 03/29/2023 14:38:27 03/29/2023 15:49:32 Kidney stone [id number] N20.0 9mm left prox stone, went over observatio n, eswl or ureterosco py, we agree on eswl, went over risks of bleeding, infection, coming off blood thinners, anesthesia . [id number] MD DANIE Sierra_THOR [place] [address] 1 04/19/2023 16:15:35 04/19/2023 16:35:42 Kidney stone [id number] N20.0 9mm left prox stone seems resolved sp eswl , minimal symptoms, unable to see any stone on kub. Rec high fluid, low sodium diet. Get fu ultrasound in a month. [id number] MD DANIE Limon_THOR Pulmon[place] [id number] 04/11/2024 09:46:47 04/11/2024 11:12:45 Obstructive sleep apnea syndrome [id number] G47.33 [id number] MD MILO Limon Pulmonolo gy [place] [address] [facility], [facility] [address] [place] [address] 07/12/2024 13:58:07 09/03/2024 09:22:02 Obstructive sleep apnea syndrome [id number] G47.33 Health Concerns Section Related Observation LastModified by Organization Detai ls LastModified Time None Recorded Concern Status LastModified by Organization Details LastModified Time None Recorded Advance Directives Directive None Recorded Payers Insurance Date Sequence Insurance Name Policy Number Policy Marshall Covered Member ID Marshall Member ID Guarantor Name 01/03/2025 1 [facility] - DOS ON OR AFTER 21 (MEDICAID REPLACEMENT - HMO) Burke Triana [id number] Burke Triana Notes Date Note Type Note Provider Name and Address Organization Details Recorded Time 03/29/2023 text/html Kidney StoneRepo rted bypatient.Notes:Pt presented to ER last night with left flank and side pain, no vomiting, fever , chills, dysuria or hematuria. CT showed 9mm left upj stone. No prior stones, no family hx of stones. He feels fine now. Ambrosio Multani MD [address] [facility], [facility] [address], [place], [address], Accountable 03/29/2023 15:51:49 04/19/2023 text/html Kidney StoneRepo rted bypatient.Notes:Pt presented to ER last night with left flank and side pain, no vomiting, fever , chills, dysuria or hematuria. CT showed 9mm left upj stone. No prior stones, no family hx of stones. He feels fine now.04/19/23Pt had left eswl last week and feels fine, had some slight discomfort, didnt strain urine, no pain now. KUB shows no stones. Ambrosio Multani MD [address], [place], [address], [employer] [facility] 04/19/2023 16:38:20 04/11/2024 text/html Primary care/Ref erring provider: CORBIN Miller; Dalia Bennett MD; Damon Marie MD; Dionte Nieves MD During the [facility] home sleep study on 10/28/23, AHI = 29. During the [facility] titration sleep study 04/06/24, sleep onset = 16.5 minutes, REM onset = 104 minutes, PLMI = 0.0. The patient uses a ResMed AirSense 11 autoset unit with heated humidification. The patient does not need the ramp to start low and go up slowly on the pressure anymore. There is no xerostomia in a.m. There is no hose/mask condensation with water. The patient wears a ResMed medium AirFit N30i nasal mask without chin strap. There is no claustrophobia, no nostril/nose bridge irritation, no facial rash, no facial numbness, no nosebleeding. The patient feels more refreshed upon waking and daytime alertness is improved. Energy levels are sustained until early afternoon, around 2 pm. At home, the patient sleeps from 12 am to 7 am and wakes up without an alarm. Snoring: heavy, since . Snorting: no Choking: no Coughing: no Gasping: no Gagging: no Sighing: no Witnessed apnea: yes Twitching or jerking of leg(s), arm(s), body, head: no Teeth grinding: no Teeth clenching: no Sleeptalking: no Sleepwalking: no Sleep crying: no Bedwetting: no Tongue/lip/gum/cheek biting: no Sleeping with open mouth: yes Sleep paralysis: no Hypnagogic hallucinations: no Hypnopompic hallucinations: no Vivid dreams: no Difficulty with sleep onset: no Difficulty with sleep maintenance: yes Sleep interruptions: nocturia x 2 Patient wakes up with: fatigue, sore throat, cognitive impairment Daytime cataplexy: no Morning hypersomnolence: no Afternoon hypersomnolence: yes Caffeine sources in diet: soda 1/2 can per day, chocolate 1/3 candy bar per day Associated medical and psychiatric conditions: Congestive heart failure: yes Coronary artery disease: no Myocardial infarction: no Hypertension: yesArrhythmias: yes Stroke: no Bronchial asthma: no Chronic obstructive pulmonary disease: no Depression: no Bipolar disorder: no Anxiety: yes Panic disorder: no Posttraumatic stress disorder: no Attention deficit and hyperactivity disorder: no Obsessive Compulsive disorder: no Schizophrenia: no Schizoaffective disorder: no Personality disorder: no Chronic analgesic use: no Chronic sedative/hypnotic use: no EPWORTH SLEEPINESS SCALE (ESS) CHANCE OF DOZING SCORE 0 = would never doze 1 = slight chance of dozing 2 = moderate chance of dozing 3 = high chance of dozing SITUATION AND CHANCE OF DOZING Sitting and reading - 1 Watching television - 1 Sitting inactive in a public place (e.g. a theater or meeting) - 2 As a passenger in a car for an hour without a break - 2 Lying down to rest in the afternoon when circumstances permit - 2 Sitting and talking to someone - 0 Sitting quietly after lunch without alcohol - 2 In a car, while stopped for a few minutes in the traffic - 0 TOTAL SCORE 10 Subjectively, patient has a moderate chance of dozing. Yemi Franks MD [address] [place] [address], [address], [place] - [facility] 04/11/2024 10:50:08 07/12/2024 text/html Primary care/Ref erring provider: CORBIN Miller; Dalia Bennett MD; Damon Marie MD; Dionte Nieves MD During the [facility] home sleep study on 10/28/23, AHI = 29.During the [facility] titration sleep study 04/06/24, sleep onset = 16.5 minutes, REM onset = 104 minutes, PLMI = 0.0. At home since 05/02/24, the patient uses a ResMed AirSense 11 autoset unit with heated humidification. The patient does not need the ramp to start low and go up slowly on the pressure anymore. There is no xerostomia in a.m. There is no hose/mask condensation with water.The patient wears a ResMed medium AirFit N30i nasal mask without chin strap. There is no claustrophobia, no nostril/nose bridge irritation, no facial rash, no facial numbness, no nosebleeding. The patient feels more refreshed upon waking and daytime alertness is improved. Energy levels are sustained until early afternoon, around 2 pm. At home, the patient sleeps from 12 am to 7 am and wakes up without an alarm. Snoring: heavy, since .Snorting: noChoking: noCoughing: noGasping: noGagging: noSighing: noWitnessed apnea: yesTwitching or jerking of leg(s), arm(s), body, head: noTeeth grinding: noTeeth clenching: noSleeptalking: noSleepwalking: noSleep crying: noBedwetting: noTongue/lip/gum/cheek biting: noSleeping with open mouth: yesSleep paralysis: noHypnagogic hallucinations: noHypnopompic hallucinations: noVivid dreams: noDifficulty with sleep onset: noDifficulty with sleep maintenance: yesSleep interruptions: nocturia x 2Patient wakes up with: fatigue, sore throat, cognitive impairmentDaytime cataplexy: noMorning hypersomnolence: noAfternoon hypersomnolence: yesCaffeine sources in diet: soda 1/2 can per day, chocolate 1/3 candy bar per day Associated medical and psychiatric conditions:Congestive heart failure: yesCoronary artery disease: noMyocardial infarction: noHypertension: yesArrhythmias: yesStroke: noBronchial asthma: noChronic obstructive pulmonary disease: noDepression: noBipolar disorder: noAnxiety: yesPanic disorder: noPosttraumatic stress disorder: noAttention deficit and hyperactivity disorder: noObsessive Compulsive disorder: noSchizophrenia: noSchizoaffective disorder: noPersonality disorder: noChronic analgesic use: noChronic sedative/hypnotic use: no EPWORTH SLEEPINESS SCALE (ESS) CHANCE OF DOZING SCORE0 = would never doze1 = slight chance of dozing2 = moderate chance of dozing3 = high chance of dozing SITUATION AND CHANCE OF DOZINGSitting and reading - 1Watching television - 1Sitting inactive in a public place (e.g. a theater or meeting) - 0As a passenger in a car for an hour without a break - 2Lying down to rest in the afternoon when circumstances permit - 2Sitting and talking to someone - 0Sitting quietly after lunch without alcohol - 0In a car, while stopped for a few minutes in the traffic - 0TOTAL SCORE 6Subjectively, patient has a slight chance of dozing. Yemi Franks MD [address] [address], [place], [address], [place] [facility] 07/12/2024 14:44:47
--- OUTSIDE RECORDS SUMMARY | 2025-03-12 10:41 | XMS_ITS ---
Author Organization Unknown Plan of Treatment Description Planned Activity Planned Timing [facility] is a provider organization who partners directly with Health Plans and provides integrated primary care, behavioral health, and social worker aide for an attributed population Letter encounter to patientTelephone encounter Feb 28, 2025Jul 2024 Patient Care team information Name Category Status Period Participants - - Proposed period not known -
--- OUTSIDE RECORDS SUMMARY | 2025-03-12 10:41 | XMS_ITS | Clinical Summary ---
Author Organization [facility] Address [address] [place] [id number] Care Team Providers Care Shadowgraph Operator Name Role Phone Alyssa Kemp NP Primary Care Provider [phone] Dalia Bennett MD Unavailable [phone] Allergies No known active allergies Medications Eliquis [...] Morbid obesity with BMI of 50.0-59.9, adult 0 01/2023 Assessment & Plan (11/15/2024 2:39 PM CDT): Discussed the patient's BMI. The BMI is above average. BMI management plan is completed. BMI Follow-up includes: nutrition counseling, exercise counseling and education provided. Assessment & Plan (10/15/2024 11:05 AM FLY MAKER): Discussed the patient's BMI. The BMI is above average. BMI management plan is completed. BMI Follow-up includes: nutrition counseling, exercise counseling and education provided. Assessment & Plan (04/12/2024 10:40 AM CDT): Discussed the patient's BMI. The BMI is above average. BMI management plan is completed. BMI Follow-up includes: nutrition counseling, exercise counseling and education provided. Assessment & Plan (10/13/2023 9:55 AM FLY MAKER): Discussed the patient's BMI. The BMI is [...] of unspecified lower extremity (CODE) 10/06/2015 12/08/2022 Encounters Date Type Department Care Team Description 01/24/2025 Telephone [facility] Internal Medicine at [place] [address] [facility] [address] [place] [address] Alyssa Kemp NP Referral Request from Last 3 Months Immunizations Immunization Administration Dates Next Due Influenza, Unspecified 10/15/2024(Deferr ed: Patient Refused),10/13/2023(Deferred: Patient Refused),09/05/2023(Deferred: Patient Refused),09/05/2023(Deferred: Patient Refused),09/05/2023(Deferred: Patient Refused),06/08/2023(Deferred: Patient Refused),04/12/2023(Deferred: Patient Refused),12/07/2022(Deferred: Patient Refused),10/06/2021(Deferred: Patient Refused),10/06/2021(Deferred: Patient Refused) Surgical History Surgery Date Site/Laterality Comments CARDIAC PACEMAKER PLACEMENT LITHOTRIPSY CARDIAC ELECTROPHYSIOLOGY MAPPING AND ABLATION 024 Medical History Medical History Date Comments Atrial fibrillation and flutter (HCC) Asthma Kidney stone CHF (congestive heart failure) (HCC) Hypertension Seizures (HCC) Family History Medical History Relation Name Comments No Known Problems Brother No Known Problems Daughter Heart attack Father Heart attack Mother No Known Problems Sister Relation Name Status Comments Brother Alive Daughter Alive Father Mother Alive Sister Alive Social History Tobacco Use Types Packs/Day Years [...] on file Sexual Orientation Not on file Obstetrics History Last Filed Vital Signs Vital Sign Reading Time Taken Comments Blood Pressure 118/60 11/15/2024 2:36 PM CDT Pulse 78 11/15/2024 2:36 PM CDT Temperature 37.8 C (100 F) 11/15/2024 2:36 PM CDT Respiratory Rate 20 11/01/2024 10:46 AM FLY MAKER Oxygen Saturation 96% 11/15/2024 2:36 PM CDT Inhaled Oxygen Concentration - - Weight 169.6 kg (374 lb) 11/15/2024 2:36 PM CDT Height 177.8 cm (5' 10) 11/15/2024 2:36 PM CDT Body Mass Index 53.66 11/15/2024 2:36 PM CDT Plan of Treatment Health Maintenance Due Date Last Done Comments Hepatitis C Screening 1974 DTaP/Tdap/Td Vaccine (1 - Tdap) 1985 Hepatitis B Screening 1992 Zoster Vaccine (1 of 2) 2024 Regular Well Visit/Exam 18-64 04/12/2025 04/12/2024, 04/12/2023 Influenza Vaccine (#1) 2025 Pneumococcal vaccine <65 (1 of 2 - PCV) 09/30/2025 Postponed from 1993 (Patient declined, but will receive in the future) Depression Screening 11/15/2025 11/15/2024, 10/15/2024, 04/12/2024, Additional history exists Prostate Cancer Screening-PSA 07/27/2026 07/27/2024, 03/18/2023 Colon Cancer Screening-Colonoscopy 12/26/2033 12/27/2023, 12/27/2023 Procedures Procedure Name Priority Date/Time Associated Diagnosis Comments PSA SCREEN Routine 07/27/2024 Screening for prostate cancer COLONOSCOPY Routine 12/27/2023 7:27 AM CDT from Last 3 Months or Most Recently Relevant to Health Maintenance Results * PSA screen (07/27/2024) SCRIBED PSA, Serum 0.48 0.00 - 4.00 EXTERNAL LAB Blood 07/27/2024 Alyssa Kemp RADAR SYSTEMS ENGINEER LAB BLOOD ORDERABLES Final Re sult EXTERNAL LAB * Colonoscopy (12/27/2023 7:27 AM CDT) Anatomical Region Laterality Modality Other Historical Provider ENDOSCOPY PROCEDURES Sophie l Result from Last 3 Months or Most Recently Relevant to Health Maintenance Insurance [facility] Care Teams Shadowgraph Operator Relationship Specialty Start Date End Date Alyssa Kemp NP [address] [facility] [address] [place] [address] PCP - General Internal Medicine 12/08/22 Dalia Bennett MD [address] [place] [address] Consulting Physician Cardiology 11/18/23
--- OUTSIDE RECORDS SUMMARY | 2025-03-12 10:41 | XMS_ITS | Clinical Summary ---
Author Organization [facility] Address [address] [place] [address] Phone Care Team Providers Care Trade Promotion Analyst Name Role Phone Unavailable Primary Care Provider Unavailabl e Social History Tobacco Use Types Packs/Day Years Used Date Smoking Tobacco: Never Assessed Sex and Gender Information Value Date Recorded Sex Assigned at Not on file Legal Sex Male 12:01 PM CDT Gender Identity Not on file Sexual Orientation Not on file Plan of Treatment Health Maintenance Due Date Last Done Comments Hepatitis C Virus (HCV) Screening 1974 TdaP Immunization 1974 Hepatitis B Immunization (1 of 3 - 19+ 3-dose series) 1993 Colonoscopy 2019 Colorectal Cancer Screening 2019 Influenza Immunization (#1) 2024 SARS-COV-2 Immunization ( season) 2024 Cologuard 2024 Immunochemical Fecal Occult Blood 2024 Respiratory Syncytial Virus (RSV) Immunization (Adult) (1 - 1-dose 75+ series) 2049 Meningococcal Immunization (ACWY) Aged Out No longer eligible based on patient's age to complete this topic Pneumococcal Immunization Combined Aged Out No longer eligible based on patient's age to complete this topic Rotavirus Immunization Aged Out No lo nger eligible based on patient's age to complete this topic Insurance MEDICAID [facility]
[2025-03-12 10:57] LABS: Hematocrit 34.8 % (42.0-52.0); Hemoglobin 11.2 g/dL (14.0-18.0); Immature Granulocyte Percent A 0.8 % (0-0.5); Lymphocytes Absolute Auto 0.80 K/mm3 (0.9-3.2); Mean Corpuscular HGB Conc 32.2 g/dl (32-36); Mean Corpuscular Hemoglobin 29.1 pg (26-34); Mean Corpuscular Volume 90.4 fl (80-100); Nucleated Red Blood Cells Absolute Auto 0.000 K/mm3 (0.0-0.012); Nucleated Red Blood Cells Perc 0.0 % (0.0-0.2); Platelet Count Result 198 k/mm3 (150-375); Red Blood Count 3.85 M/mm3 (4.6-6.20); White Blood Count 11.3 K/mm3 (4.5-10.0)
[2025-03-12 11:13] LABS: INR 1.7; Partial Thromboplastin Time 39.8 Seconds (22.3-36.8); Prothrombin Time 19.2 Seconds (11.1-14.7)
[2025-03-12 11:16] LABS: Alanine Aminotransferase 25 U/L (6-50); Albumin Level 3.4 g/dL (3.5-5.1); Alkaline Phosphatase 80 U/L (38-126); Anion Gap 11 mmol/L (4-12); Aspartate Amino Transferase 29 U/L (17-59); Bilirubin,Total 0.7 mg/dL (0.2-1.3); Blood Urea Nitrogen 32 mg/dL (9-20); Calcium 8.7 mg/dL (8.4-10.2); Carbon Dioxide 24 mmol/L (22-30); Chloride 99 mmol/L (98-107); Estimated CRCL calculation 55 ml/min; Estimated Glomerular Filt Rate 30; Glucose 152 mg/dL (65-110); Lipase 64 U/L (23-300); Potassium 3.1 mmol/L (3.4-5.0); Sodium 134 mmol/L (137-145); Total Protein 7.6 g/dL (6.3-8.2)
--- NOTE | 2025-03-12 11:23 | ED_ITS ---
HPI - General Adult General Chief complaint: Chest Pain Stated complaint: chest pain, out of cardiac meds Time Seen by Provider: 03/12/25 10:37 Source: patient Mode of arrival: ambulatory Limitations: no limitations History of Present Illness HPI narrative: 49 YEARS OLD THE WHITE MALE CAME TO THE ED FROM HOME BY PRIVATE CAR COMPLAINING OF PAIN, SWELLING AND REDNESS OF THE LEFT LOWER EXTREMITY STARTED 2 DAYS AGO. PATIENT IS TELLING ME THAT HE STARTED HAVING OPEN WOUNDS OF THE LOWER EXTREMITY BILATERALLY 2 MONTHS AGO. HE USED TO HAVE SIMILAR SYMPTOMS IN THE PAST. PATIENT CURRENTLY ON ELIQUIS FOR HISTORY OF ATRIAL FIBRILLATION. HE DENIES ANY FEVER, CHILLS, NAUSEA, VOMITING OR HISTORY OF DIABETES. Related Data Home Medications ?Medication ?Instructions ?Recorded ?Confirmed ?Last Taken ?Type albuterol sulfate 90 mcg/actuation 90 mcg inhalation PRN PRN Wheezing 12/14/23 12/14/23 Unknown History aerosol inhaler alprazolam 1 mg tablet 1 mg PO BID PRN Anxiety 12/14/23 12/14/23 Unknown History amiodarone 200 mg tablet 200 mg PO DAILY 12/14/23 12/14/23 Unknown History apixaban 5 mg tablet (Eliquis) 5 mg PO DAILY 12/14/23 12/27/23 12/24/23 History carvedilol 6.25 mg tablet (Coreg) 6.25 mg PO BID 12/14/23 12/14/23 Unknown History diltiazem HCl 180 mg capsule,24 180 mg PO DAILY 12/14/23 12/14/23 Unknown History hr,extended release furosemide 40 mg tablet 40 mg PO DAILY 12/14/23 12/14/23 Unknown History methocarbamol 500 mg tablet 500 mg PO DAILY 12/14/23 12/14/23 Unknown History montelukast 10 mg tablet 10 mg PO DAILY 12/14/23 12/14/23 Unknown History sacubitril 24 mg-valsartan 26 mg 24 - 26 tablet PO BID 12/14/23 12/14/23 Unknown History tablet (Entresto) Allergies Allergy/AdvReac Type Severity Reaction Status Date / Time No Known Allergies Allergy Verified 12/27/23 09:30 Review of Systems 2 Review of Systems: All systems reviewed & are unremarkable except as noted in HPI and below PMFSH Past Medical History Medical History Colon cancer screening Social History Social History Smoking status: Former smoker Tobacco type: cigarettes and cigars Alcohol intake: current Drinks per week: 15 Substance use type: marijuana Other substance usage details: once or twice a year Living arrangements: alone Spiritual care concerns: No Exam 2 Narrative: GENERAL APPEARANCE: WELL-DEVELOPED, WELL-NOURISHED SKIN: NORMAL COLOR HEAD: NORMOCEPHALIC, NONTRAUMATIC EYES: CLEAR CONJUNCTIVA ENT: OROPHARYNX NORMAL, EARS NORMAL, NOSE NORMAL NECK: SUPPLE, NONTENDER CHEST AND RESPIRATORY: AIRWAY PATENT, NO RESPIRATORY DISTRESS, NO ACCESSORY MUSCLE USE HEART: REGULAR RATE/RHYTHM ABDOMEN: SOFT, NONTENDER, NO ORGANOMEGALY, QUIET BOWEL SOUNDS VASCULAR: NORMAL PERIPHERAL PULSES, NORMAL CAPILLARY REFILL. MUSCULOSKELETAL: SUPERFICIAL ULCERATION WITH SURROUNDED ERYTHEMA OF THE LOWER LEG BILATERALLY BELOW THE KNEES, LEFT LOWER EXTREMITY SHOWED DIFFUSE ERYTHEMA, WARMTH, TENDERNESS OLD WAY UP TO THE GROIN AREA. NEUROLOGIC: ALERT AND ORIENTED ?3, INFANT CAREGIVER IS NORMAL TESTED, NO GROSS MOTOR DEFICIT Course Vital Signs Vital signs: Vital Signs Temperature 36.9 C 03/12/25 10:43 Pulse Rate 81 03/12/25 10:43 Respiratory Rate 18 03/12/25 10:43 Blood Pressure 124/65 03/12/25 10:43 Pulse Oximetry 97 03/12/25 10:43 Oxygen Delivery Room Air 03/12/25 10:43 Temperature 36.9 C 03/12/25 12:50 Pulse Rate 79 03/12/25 12:50 Respiratory Rate 18 03/12/25 12:50 Blood Pressure 117/60 03/12/25 11:15 Pulse Oximetry 100 03/12/25 12:50 Oxygen Delivery Room Air 03/12/25 10:43 Medical Decision Making [facility] Narrative Medical decision making narrative: PATIENT PRESENTS WITH REDNESS AND PAIN OF THE LEFT LOWER EXTREMITY VITAL SIGNS ARE STABLE PHYSICAL EXAMINATION CONSISTENT WITH INFECTED WOUND OF THE LOWER LEGS AND CELLULITIS OF THE LEFT LOWER EXTREMITY UP TO THE GROIN AREA DIFFERENTIAL DIAGNOSIS INCLUDE CELLULITIS LEFT LOWER EXTREMITY SECONDARY TO INFECTED LEGS WOUND, BLOOD WORKUP TODAY INCLUDES CBC, CMP, BLOOD CULTURE, LACTIC ACID, CRP SHOWED WBC 11.3, HEMOGLOBIN 11.2, INR 1.7, SODIUM 134, POTASSIUM 3.1, CREATININE 2.2, BUN 32, C-REACTIVE PROTEIN 24, CHEST X-RAY SHOWED MILD PULMONARY EDEMA VERSUS INFECTION DIAGNOSIS INFECTED LEG WOUNDS, LEFT LEG CELLULITIS, KIDNEY FAILURE, HYPOKALEMIA ADMIT TO HOSPITALIST Vital Signs Vital Signs: Vital Signs Temperature 36.9 C 03/12/25 10:43 Pulse Rate 81 03/12/25 10:43 Respiratory Rate 18 03/12/25 10:43 Blood Pressure 124/65 03/12/25 10:43 Pulse Oximetry 97 03/12/25 10:43 Oxygen Delivery Room Air 03/12/25 10:43 Temperature 36.9 C 03/12/25 12:50 Pulse Rate 79 03/12/25 12:50 Respiratory Rate 18 03/12/25 12:50 Blood Pressure 117/60 03/12/25 11:15 Pulse Oximetry 100 03/12/25 12:50 Oxygen Delivery Room Air 03/12/25 10:43 Lab Data 03/12/25 10:50 03/12/25 10:50 Labs: Lab Results 03/12/25 03/12/25 03/12/25 Range/Units 10:50 10:50 10:50 WBC 11.3 H (4.5-10.0) K/mm3 RBC 3.85 L (4.6-6.20) M/mm3 Hgb 11.2 L (14.0-18.0) g/dL Hct 34.8 L (42.0-52.0) % MCV 90.4 (80-100) fl MCH 29.1 (26-34) pg MCHC 32.2 (32-36) g/dl RDW 15.4 H (11.5-14.5) % Plt Count 198 (150-375) k/mm3 MPV 10.2 (7.4-10.4) fl Immature Gran % (Auto) 0.8 H (0-0.5) % Neut % (Auto) 81.0 H (45.5-73.1) % Lymph % (Auto) 7.1 L (18.3-44.2) % Divide % (Auto) 10.6 H (2.6-8.5) % Eos % (Auto) 0.1 (0-4.4) % Baso % (Auto) 0.4 (0.2-1.2) % Lymph # (Auto) 0.80 L (0.9-3.2) K/mm3 Divide # (Auto) 1.2 H (0.1-0.6) K/mm3 Eos # (Auto) 0.0 (0-0.3) K/mm3 Baso # (Auto) 0.0 (0.0-0.1) K/mm3 Abs Immat Gran (auto) 0.09 H (0.00-0.031) K/mm3 Absolute Neuts (auto) 9.2 H (1.3-6.7) K/mm3 Absolute Nucleated RBC 0.000 (0.0-0.012) K/mm3 Nucleated RBC % 0.0 (0.0-0.2) % PT 19.2 H Cancelled (11.1-14.7) Seconds INR 1.7 Cancelled APTT 39.8 H (22.3-36.8) Seconds Sodium (137-145) mmol/L Potassium (3.4-5.0) mmol/L Chloride (98-107) mmol/L Carbon Dioxide (22-30) mmol/L Anion Gap (4-12) mmol/L BUN (9-20) mg/dL Creatinine (0.7-1.3) mg/dL Estim Creat Clear Calc ml/min Estimated GFR (59 - ) Glucose (65-110) mg/dL Lactic Acid (0.7-2.0) mmol/L Calcium (8.4-10.2) mg/dL Total Bilirubin (0.2-1.3) mg/dL AST (17-59) U/L ALT (6-50) U/L Alkaline Phosphatase (38-126) U/L Troponin I (0.000-0.034) ng/mL C-Reactive Protein (<1.0) mg/dL Total Protein (6.3-8.2) g/dL Albumin (3.5-5.1) g/dL Lipase (23-300) U/L 03/12/25 03/12/25 Range/Units 10:50 12:06 WBC (4.5-10.0) K/mm3 RBC (4.6-6.20) M/mm3 Hgb (14.0-18.0) g/dL Hct (42.0-52.0) % MCV (80-100) fl MCH (26-34) pg MCHC (32-36) g/dl RDW (11.5-14.5) % Plt Count (150-375) k/mm3 MPV (7.4-10.4) fl Immature Gran % (Auto) (0-0.5) % Neut % (Auto) (45.5-73.1) % Lymph % (Auto) (18.3-44.2) % Divide % (Auto) (2.6-8.5) % Eos % (Auto) (0-4.4) % Baso % (Auto) (0.2-1.2) % Lymph # (Auto) (0.9-3.2) K/mm3 Divide # (Auto) (0.1-0.6) K/mm3 Eos # (Auto) (0-0.3) K/mm3 Baso # (Auto) (0.0-0.1) K/mm3 Abs Immat Gran (auto) (0.00-0.031) K/mm3 Absolute Neuts (auto) (1.3-6.7) K/mm3 Absolute Nucleated RBC (0.0-0.012) K/mm3 Nucleated RBC % (0.0-0.2) % PT (11.1-14.7) Seconds INR APTT Cancelled (22.3-36.8) Seconds Sodium 134 L (137-145) mmol/L Potassium 3.1 L (3.4-5.0) mmol/L Chloride 99 (98-107) mmol/L Carbon Dioxide 24 (22-30) mmol/L Anion Gap 11 (4-12) mmol/L BUN 32 H (9-20) mg/dL Creatinine 2.29 H (0.7-1.3) mg/dL Estim Creat Clear Calc 55 ml/min Estimated GFR 30 L (59 - ) Glucose 152 H (65-110) mg/dL Lactic Acid 1.3 (0.7-2.0) mmol/L Calcium 8.7 (8.4-10.2) mg/dL Total Bilirubin 0.7 (0.2-1.3) mg/dL AST 29 (17-59) U/L ALT 25 (6-50) U/L Alkaline Phosphatase 80 (38-126) U/L Troponin I < 0.012 (0.000-0.034) ng/mL C-Reactive Protein 24.0 H (<1.0) mg/dL Total Protein 7.6 (6.3-8.2) g/dL Albumin 3.4 L (3.5-5.1) g/dL Lipase 64 (23-300) U/L Imaging Data Radiologist's impression: Impressions Chest X-Ray 03/12/25 11:37 IMPRESSION: Mild pulmonary edema. Superimposed infection cannot be excluded. Critical Care Time Critical Care Time Critical Care Time: Yes Total Critical Care Time: 30 Discharge Plan Discharge Clinical Impression: Cellulitis of left leg, Open leg wound, Kidney failure Patient Disposition: Still a Patient Condition: Stable Additional Instructions: ADMIT TO HOSPITALIST Patient Language: Persian Prescriptions: No Action methocarbamol 500 mg tablet 500 mg PO DAILY carvedilol [Coreg] 6.25 mg tablet 6.25 mg PO BID diltiazem HCl 180 mg capsule,extended release 24 hr 180 mg PO DAILY amiodarone 200 mg tablet 200 mg PO DAILY albuterol sulfate 90 mcg/actuation HFA aerosol inhaler 90 mcg INHALATION PRN PRN (Reason: Wheezing) Eliquis 5 mg tablet 5 mg PO DAILY Entresto 24-26 mg tablet 24 - 26 tablet PO BID furosemide 40 mg tablet 40 mg PO DAILY montelukast 10 mg tablet 10 mg PO DAILY alprazolam 1 mg Tablet 1 mg PO BID PRN (Reason: Anxiety) Follow-up/Referrals: Viridiana,NATASHA Shah [Primary Care Provider] -
[2025-03-12 11:28] LABS: Troponin I < 0.012 ng/mL (0.000-0.034)
[2025-03-12] MEDS: SODIUM CHLORIDE 0.9% IV 1,000 ML 999 ML IV CONT (12:08)
[2025-03-12] MEDS: PIPERACILLIN/TAZOBACTAM SOD 3.375 GM in SODIUM CHLORIDE 0.9% IV 50 ML 100 ML IVPB (12:08)
[2025-03-12 12:29] LABS: CRP 24.0 mg/dL (<1.0)
[2025-03-12] MEDS: VANCOMYCIN 2,000 MG/NS 500 ML 2,000 MG/500 ML BAG 250 MG IVPB (12:47)
[2025-03-12] MEDS: POTASSIUM CHLORIDE 20 MEQ PACKET (FOR LIQUID) 40 MEQ PO (13:07)
--- NOTE | 2025-03-12 13:08 | P.HP_ITS ---
H&P: HPI History of Present Illness Date/Time: 03/12/25 13:08 Chief Complaint: Lower Extremity Swelling and Wounds Narrative: 49 y/o M with PMH of BLE wounds, Afib, and HTN presents here with bilateral lower extremity swelling and wounds. The patient presents here with bilateral lower extremity swelling and bilateral lower extremity wounds on 03/12. He reports he was a previous history of wounds to his bilateral lower extremities starting in 2011 which were treated in 2022. He reports wound care while he was at rehab after a significant medical episode and resolved for 2 years. He reports they returned around 2-2.5 months ago. He developed scabs and the ulcerations/wounds returned. Seeking care now as his left lower extremity has become more swollen, painful, and erythematous over the last 2 days. He denies associated fever, chills, body aches, nausea, vomiting, or diarrhea. He has a history of AFib on chronic anticoagulation - Eliquis. He denies any previous known history of arterial insufficiency, venous insufficiency, diabetes, or kidney disease. Patient however was told to follow- up with a casting wheel operator - at his PCP visit he believes his creatinine was 1.6. Initial VS at presentation: 98.5? F, HR 81, R 18, 124/65, and 97% on RA. ED workup showed: WBC 11.3, hemoglobin 11.2, potassium 3.1, creatinine 2.29 and GFR 30, glucose 152, lactic 1.3, CRP 24. CXR showed mild pulmonary edema, superimposed infection cannot be excluded. Review of Systems Review of Systems: All systems reviewed & are unremarkable except as noted in HPI and below [facility] Past Medical History Medical History Anxiety Venous stasis ulcers of both lower extremities Kidney stones Asthma History of pacemaker HTN (hypertension) Cardiomyopathy Atrial fibrillation Colon cancer screening Family History Family History Mother Heart attack Grandparent Stomach cancer Heart attack Father Heart attack Social History Social History Smoking status: Former smoker Tobacco type: cigarettes Smokeless tobacco user: chewing tobacco Alcohol intake: current Drinks per week: 12 Substance use: never Substance use type: marijuana Other substance usage details: once or twice a year Do You Feel Safe in your Home?: Yes Lack of Transportation: No Lack of Food: Never True Current Housing: I Have Housing Concerned About Future Housing: Decline to Answer Difficulty Paying Gas/Electric Bills: Decline to Answer Difficulty Paying for Meds: Decline to Answer Currently Unemployed: Decline to Answer Education: High School Diploma/GED Difficulty w/ Childcare or Family Care: Decline to Answer Living arrangements: alone Spiritual care concerns: No Meds Home Medications and Allergies Home Medications ?Medication ?Instructions ?Recorded ?Confirmed ?Type albuterol sulfate 90 mcg/actuation 90 mcg inhalation PRN PRN Wheezing 12/14/23 03/12/25 History aerosol inhaler alprazolam 1 mg tablet 1 mg PO BID PRN Anxiety 12/14/23 03/12/25 History apixaban 5 mg tablet (Eliquis) 5 mg PO Q12H 12/14/23 03/12/25 History carvedilol 6.25 mg tablet (Coreg) 6.25 mg PO BID 12/14/23 03/12/25 History furosemide 40 mg tablet 40 mg PO DAILY 12/14/23 03/12/25 History montelukast 10 mg tablet 10 mg PO DAILY 12/14/23 03/12/25 History sacubitril 24 mg-valsartan 26 mg 24 - 26 tablet PO BID 12/14/23 03/12/25 History tablet (Entresto) diltiazem HCl 360 mg capsule,24 360 mg PO DAILY 03/12/25 03/12/25 History hr,extended release dofetilide 250 mcg capsule 250 mcg PO Q12H 03/12/25 03/12/25 History fluticasone 500 mcg-salmeterol 50 1 inh inhalation Q12H 03/12/25 03/12/25 History mcg/dose blistr powdr for inhalation (Advair Diskus) magnesium oxide 400 mg (241.3 mg 400 mg PO BID 03/12/25 03/12/25 History magnesium) tablet tiotropium bromide 1.25 2 puff inhalation DAILY 03/12/25 03/12/25 History mcg/actuation mist for inhalation (Spiriva Respimat) Allergies Allergy/AdvReac Type Severity Reaction Status Date / Time No Known Allergies Allergy Verified 03/12/25 16:37 Vital Signs Vital Signs - 24 hr 03/12/25 10:43 03/12/25 11:15 03/12/25 12:50 Temperature 98.5 F 97.5 F L 98.5 F Pulse Rate 81 79 79 Respiratory Rate 18 18 18 Blood Pressure 124/65 117/60 Pulse Oximetry 97 98 100 Oxygen Delivery Room Air Exam Const: General: comfortable and no acute distress Other: , male, chronically ill-appearing, obese body habitus HENMT: Face/Nose/Sinus: Normal nares present Mouth: Yes moist mucous membranes Other: poor dentition Eyes: General: appearance normal, both eyes and all related structures Sclera: sclerae normal Pupils: Equal, round and reactive pupils present EOM: EOMs intact bilaterally Resp: Effort & Inspection: normal respiratory effort Auscultation: clear to auscultation bilaterally Cardio: Rate: regular rate Rhythm: regular rhythm Other: S1-S2 present without murmur, rub, ectopy GI: Other: Abdomen soft, nondistended, nontender. Normoactive bowel sounds in all quadrants. Skin: Other: Erythematous bilateral lower extremities, left worse than right. BLE are edematous, pitting, flaking, shiny, with bilateral anterior ulcerations that are relatively shallow. largest right ulceration approximately 9 x 13 cm. Largest left ulceration 11 x 7 cm approximately. Malodorous with purulent to clear drainage. Neuro: Speech: normal speech Motor exam (neuro): 5/5 motor strength present throughout Sensory Exam: normal sensation Other: A&O x4 Extrem: Other: significant peripheral edema Psych: Mental Status: mental status grossly normal Affect: normal affect Other: good insight and judgment, pleasant H&P: Results Labs Labs: Short CBC 03/12/25 Range/Units 10:50 WBC 11.3 H (4.5-10.0) K/mm3 Hgb 11.2 L (14.0-18.0) g/dL Hct 34.8 L (42.0-52.0) % Plt Count 198 (150-375) k/mm3 BMP 03/12/25 10:50 Sodium 134 L Potassium 3.1 L Chloride 99 Carbon Dioxide 24 BUN 32 H Creatinine 2.29 H Glucose 152 H Calcium 8.7 Cardiac Enzymes 03/12/25 Range/Units 10:50 Troponin I < 0.012 (0.000-0.034) ng/mL Liver Function 03/12/25 Range/Units 10:50 Total Bilirubin 0.7 (0.2-1.3) mg/dL AST 29 (17-59) U/L ALT 25 (6-50) U/L Alkaline Phosphatase 80 (38-126) U/L Albumin 3.4 L (3.5-5.1) g/dL Assessment and Plan Assessment and plan (1) Cellulitis of left leg: Code(s): L03.116 - Cellulitis of left lower limb Status: Acute Assessment and Plan: Hx of venous stasis ulcerations of the bilateral lower extremities with cellulitis. Treated and resolved for 2 weeks, returned and have been present for the past 2 months. Has now developed pain and erythema specifically to the left lower extremity, however on exam both lower extremities appear erythematous and infected with purulent drainage. - started on Zosyn and Vancomycin on 03/12 - wound consulted - wound culture of the LLE - check US of BLE and ABIs - anelgesics prn - CRP elevated, trending - blood cultures obtained in ED on 03/12, follow (2) Venous stasis ulcers of both lower extremities: Code(s): I83.019 - Varicose veins of right lower extremity with ulcer of unspecified site; I83.029 - Varicose veins of left lower extremity with ulcer of unspecified site; L97.919 - Non-pressure chronic ulcer of unspecified part of right lower leg with unspecified severity; L97.929 - Non-pressure chronic ulcer of unspecified part of left lower leg with unspecified severity Status: Acute Assessment and Plan: - patient denies hx of venous or arterial insufficiency, however documented previously. - checking US of BLE and ABIs, see above (3) Elevated glucose: Code(s): R73.09 - Other abnormal glucose Status: Acute Assessment and Plan: - no prior hx of DM, initial glucose 152 - check A1C (4) Renal insufficiency: Code(s): N28.9 - Disorder of kidney and ureter, unspecified Status: Acute Assessment and Plan: - no known hx of CKD or renal insufficiency, no previous lab work available for comparison. Per patient most recent creatinine 1.6, was referred to a casting wheel operator but has not had appt yet, was scheduled for this week which he has had to cancel due to admission. - creatinine 2.29, BUN 32, GFR 30 - renal ultrasound - check CK, urine sodium, protein/creatinine, Urine potassium, urine creatinine, and UA - dependent on work up, consider nephrology consultation. patient has risk factors for CKD including HTN, cardiomyopathy and possible undiagnosed DM. ->> After shared decision making with patient, would like evaluation as he had to cancel his appt. Based off his previously reported level, CLAUDIA superimposed on CKD. Newly dark urine. - monitor I&Os (5) Atrial fibrillation: Qualifiers: Atrial fibrillation type: unspecified Qualified Code(s): I48.91 - Unspecified atrial fibrillation Code(s): I48.91 - Unspecified atrial fibrillation Status: Chronic Assessment and Plan: - continue home medication: Eliquis, diltiazem (6) HTN (hypertension): Qualifiers: Hypertension type: primary hypertension Qualified Code(s): I10 - Essential (primary) hypertension Code(s): I10 - Essential (primary) hypertension Status: Chronic Assessment and Plan: - chronic, currently 111/60 - continue home medications: Entresto, Lasix, Coreg - monitor Plan Diet: heart healthy GI Prophylaxis: NA DVT Prophylaxis: Eliquis IV fluids: 1L -> 250 mL/hr Lines/Tubes: peripheral IV Code Status: full code Quality VTE Prophylaxis VTE prophylaxis: pharmacologic ordered Hospitalist MIPS Advance Care Plan I have confirmed that the patient's Advanced Care Plan is present, code status is documented, or surrogate decision maker is listed in patient medical record.: Yes Medication Reconciliation I have utilized all available resources to obtain, update and review the patients current medications (includes all prescriptions, OTC, herbals, cannabis, and nutritional supplements).: Yes
[2025-03-12 14:38] LABS: Creatine Kinase 45 U/L (55-170)
[2025-03-12 14:47] LABS: NT Pro B Type Natriuretic Pept 661 pg/mL (19.9-100)
[2025-03-12 15:33] LABS: Total Protein Urine Random 61 mg/dL; Ur Ttl Prot Creatinine Ratio 0.36 mg/mg (0-0.20)
--- NOTE | 2025-03-12 16:10 | PC.NURSE ---
This patient, Burke Triana, was admitted to [facility] Surg Room 307-02. Patient/family oriented to hospital policies and general routines including ID bracelet, bed and alarms, visiting hours, pain management, procedures, bathroom and other care routines, personal items, smoking policy, room service/diet, and visiting hours. Information on how to activate the Rapid Response Team has been discussed. Patient/Family are encouraged to report perceived risks to care and to ask questions if they do not understand what they are told or what they should do.
[2025-03-12] MEDS: SODIUM CHLORIDE 0.9% IV 1,000 ML 250 ML IV CONT ×2 (16:59→22:14)
[2025-03-12] MEDS: PIPERACILLN/TAZ 3.375GM/NS50ML 3.375 GM/50 ML BAG IVPB (17:00)
[2025-03-12] MEDS: APIXABAN 5 MG TABLET PO (22:13)
[2025-03-12] MEDS: SACUBITRIL/VALSARTAN 24-26 MG TABLET 1 TAB PO (22:13)
[2025-03-12 22:40] LABS: Add Urine Microscopic? YES; Appearance Urine Turbid (Clear); Glucose Urine UA Negative (Negative); Leukocyte Esterase Ur 1+ LEU/UL (Negative); Nitrate Urine Negative (Negative); Specific Grav Ur 1.016 (1.001-1.035)
[2025-03-12 22:43] LABS: Need Manual Microscopic Yes
[2025-03-13] VITALS (9 sets, daily range): BP systolic 106–120; BP diastolic 53–60; PULSE 74–80; RESP 16–20; TEMP 36.3–37; O2SAT 96–97
--- NOTE | 2025-03-13 | ECHO_ITS ---
Patient Info Name: uBrke Triana Age: 49 years : 1975 Gender: Male Ht: 70 in Wt: 372 lbs BSA: 2.98 m2 HR: 74 bpm BP: 108 / 55 mmHg Heart Rhythm: Sinus Rhythm Technical Quality: Fair Exam Date: 03/13/2025 4:04 PM Patient Status: I Admit Date: 03/13/2025 Exam Type: CA echo dop color flow w con Complete two-dimensional, color flow and Doppler transthoracic echocardiogram is performed with contrast to opacify the left ventricle and to improve the deliniation of the left ventricle endocardial borders. Staff Referring Physician: Sophia Bonds Cd Reactor Operator Head: Mell Beatty Attending Provider: Elif Heredia Contrast/Agitated Saline Contrast/Ag. Saline: Definity Amount: 3.00 ml Administered By: Mell Beatty Existing IV Access: Yes IV Access Condition: patent with no signs of infiltration Summary 1. The left ventricle is mildly dilated with borderline normal systolic function. The left ventricular ejection fraction is visually estimated to be 50%. 2. The right ventricle is normal in size and systolic function. 3. This was a technically difficult study with poorly visualized acoustic windows. Left Ventricle The left ventricle is mildly dilated with borderline normal systolic function. The left ventricular ejection fraction is visually estimated to be 50%. Right Ventricle The right ventricle is normal in size and systolic function. Left Atria The left atrium is grossly normal in size. Right Atria The right atrium is grossly normal in size. Atrial Septum The atrial septum is not well visualized. Aortic Valve There is no aortic stenosis. There is no aortic regurgitation. Pulmonic Valve The pulmonic valve is not well visualized. Mitral Valve The mitral valve is normal. There is no mitral stenosis. There is no mitral regurgitation. Tricuspid Valve The tricuspid valve is grossly normal. Pericardium/Pleural Pericardium is normal in appearance with no evidence for significant pericardial effusion. Inferior Vena Cava Normal inferior vena cava with >50% collapse upon inspiration consistent with normal right atrial pressure, 3 mmHg. Aorta The aortic root at the level of the sinus of Valsalva measures 2.7 cm in diameter. Left Ventricular Outflow Tract Name Value Normal LVOT 2D LVOT Diameter 2.0 cm LVOT Doppler LVOT Peak Velocity 113 cm/s LVOT Peak Gradient 5 mmHg LVOT Mean Gradient 3 mmHg LVOT VTI 21 cm LVOT VTI/AV VTI Ratio 0.7 LVOT Stroke Volume 67 ml LVOT CO 5.3 l/min LVOT CI 1.8 l/min/m2 Pulmonic Valve Name Value Normal RVOT Doppler RVOT Peak Velocity 103 cm/s RVOT Peak Gradient 4 mmHg PV Doppler PV Peak Velocity 123 cm/s PV Peak Gradient 6 mmHg Mitral Valve Name Value Normal MV Diastolic Function MV E Peak Velocity 101 cm/s MV A Peak Velocity 51 cm/s MV E/A 2.0 MV Decel Time (PW) 247 ms MV Annular TDI MV E/e' (Septal) 8.1 MV E/e' (Lateral) 8.9 MV E/e' (Average) 8.5 Tricuspid Valve Name Value Normal Estimated PAP/RSVP RA Pressure 3 mmHg <=5 TV Annular TDI TV Lateral Dahlia s' Velocity 16.8 cm/s >=9.5 Aortic Valve Name Value Normal AV Doppler AV Peak Velocity 153 cm/s AV Peak Gradient 9 mmHg AV Mean Gradient 6 mmHg AV VTI 30 cm AV Area (Cont Eq VTI) 2.2 cm2 >=3.0 AV Area (Cont Eq Tc) 2.3 cm2 AV DI (Tc) 0.74 AV Regurgitation 2D LVOT Area 3.2 cm2 Ventricles Name Value Normal LV Dimensions 2D/MM IVS Diastolic Thickness (2D) 1.1 cm 0.6-1.0 LVID Diastole (2D) 6.2 cm 4.2-5.8 LVIW Diastolic Thickness (2D) 1.1 cm 0.6-1.0 LVID Systole (2D) 4.2 cm 2.5-4.0 LVOT Diameter 2.0 cm LV Mass (2D Cubed) 297.97 g 88.00-224.00 LV Mass Index (2D Cubed) 100 g/m2 49-115 Relative Wall Thickness (2D) 0.37 <=0.42 LV Fractional Shortening/Ejection Fraction 2D/MM LV Fractional Shortening (2D) 31 % 25-43 LV EF (2D Teichholz) 58 % LV Diastolic Volume (4C MOD) 231 ml LV EF (4C MOD) 66 % LV Diastolic Length (4C) 10.8 cm LV Systolic Length (4C) 8.2 cm LV Stroke Volume (4C MOD) 154 ml Atria Name Value Normal LA Dimensions LA Volume (4C A-L) 74 ml RA Dimensions RA Area (4C) 18.8 cm2 <=18.0 Report Signatures
[2025-03-13] MEDS: PIPERACILLN/TAZ 3.375GM/NS50ML 3.375 GM/50 ML BAG IVPB ×3 (00:24→12:15)
[2025-03-13] MEDS: SODIUM CHLORIDE 0.9% IV 1,000 ML 250 ML IV CONT ×3 (02:28→11:37)
[2025-03-13 05:45] LABS: Hematocrit 28.9 % (42.0-52.0); Hemoglobin 9.2 g/dL (14.0-18.0); Immature Granulocyte Percent A 0.7 % (0-0.5); Lymphocytes Absolute Auto 0.87 K/mm3 (0.9-3.2); Mean Corpuscular HGB Conc 31.8 g/dl (32-36); Mean Corpuscular Hemoglobin 29.3 pg (26-34); Mean Corpuscular Volume 92.0 fl (80-100); Nucleated Red Blood Cells Absolute Auto 0.000 K/mm3 (0.0-0.012); Nucleated Red Blood Cells Perc 0.0 % (0.0-0.2); Platelet Count Result 152 k/mm3 (150-375); Red Blood Count 3.14 M/mm3 (4.6-6.20); White Blood Count 11.5 K/mm3 (4.5-10.0)
[2025-03-13 06:04] LABS: Hemoglobin A1C 5.1 % (<5.7)
[2025-03-13 06:32] LABS: Alanine Aminotransferase 15 U/L (6-50); Albumin Level 2.8 g/dL (3.5-5.1); Alkaline Phosphatase 64 U/L (38-126); Anion Gap 7 mmol/L (4-12); Aspartate Amino Transferase 22 U/L (17-59); Bilirubin,Total 0.6 mg/dL (0.2-1.3); Blood Urea Nitrogen 26 mg/dL (9-20); CRP 28.6 mg/dL (<1.0); Calcium 8.0 mg/dL (8.4-10.2); Carbon Dioxide 24 mmol/L (22-30); Chloride 104 mmol/L (98-107); Estimated CRCL calculation 55 ml/min; Estimated Glomerular Filt Rate 30; Glucose 108 mg/dL (65-110); Potassium 3.6 mmol/L (3.4-5.0); Sodium 135 mmol/L (137-145); Total Protein 6.3 g/dL (6.3-8.2)
--- NOTE | 2025-03-13 07:59 | PM.IMPN ---
Progress Note: A&P Assessment and Plan (1) Cellulitis of left leg: Code(s): L03.116 - Cellulitis of left lower limb Status: Acute Assessment and Plan: Hx of venous stasis ulcerations of the bilateral lower extremities with cellulitis. Treated and resolved for 2 weeks, returned and have been present for the past 2 months. Has now developed pain and erythema specifically to the left lower extremity, however on exam both lower extremities appear erythematous and infected with purulent drainage. - started on Zosyn and Vancomycin on 03/12 - wound consulted - staph screen. Hopefully can stop vanc - wound culture of the LLE. Reports green drainage so should cover PSAR - check Dopplers of BLE and ABIs - anelgesics prn - CRP elevated, trending - blood cultures obtained in ED on 03/12, follow (2) Venous stasis ulcers of both lower extremities: Code(s): I83.019 - Varicose veins of right lower extremity with ulcer of unspecified site; I83.029 - Varicose veins of left lower extremity with ulcer of unspecified site; L97.919 - Non-pressure chronic ulcer of unspecified part of right lower leg with unspecified severity; L97.929 - Non-pressure chronic ulcer of unspecified part of left lower leg with unspecified severity Status: Acute Assessment and Plan: - patient reports hx intermittent edema to Bilateral lower legs, often associated with shortness of breath - checking US of BLE and ABIs, see above (3) Elevated glucose: Code(s): R73.09 - Other abnormal glucose Status: Acute Assessment and Plan: - no prior hx of DM, initial glucose 152 - HgbA1C 5.1 (4) Renal insufficiency: Code(s): N28.9 - Disorder of kidney and ureter, unspecified Status: Acute Assessment and Plan: - no known hx of CKD or renal insufficiency, no previous lab work available for comparison. Per patient most recent creatinine 1.6, was referred to a healthcare administrative assistant but has not had appt yet, was scheduled for this week which he has had to cancel due to admission. - creatinine 2.29, BUN 32, GFR 30 - renal ultrasound normal kidneys, no hydonephrosis - check CK, urine sodium, protein/creatinine, Urine potassium, urine creatinine, and UA - nephrology consulted, appreciate recommendations --risk factors for CKD including HTN, cardiomyopathy. HgbA1c was normal Based off his previously reported level, CLAUDIA superimposed on CKD. Newly dark urine. Large blood on UA - monitor I&Os --Bladder scan (5) Atrial fibrillation: Qualifiers: Atrial fibrillation type: unspecified Qualified Code(s): I48.91 - Unspecified atrial fibrillation Code(s): I48.91 - Unspecified atrial fibrillation Status: Chronic Assessment and Plan: - continue home medication: Eliquis, diltiazem (6) HTN (hypertension): Qualifiers: Hypertension type: primary hypertension Qualified Code(s): I10 - Essential (primary) hypertension Code(s): I10 - Essential (primary) hypertension Status: Chronic Assessment and Plan: - chronic, currently 111/60 - continue home medications: Entresto, Lasix, Coreg - monitor (7) Anemia: Code(s): D64.9 - Anemia, unspecified Status: Acute Assessment and Plan: Blood count trending down, 11.2>9.2. Has microscopic hematuria on UA but not visibly bloody --Follow CBC, type & screen --Monitor for black/bloody stools --Hold eliquis (8) CHF (congestive heart failure): Code(s): I50.9 - Heart failure, unspecified Status: Acute Assessment and Plan: hx CHF has a pacemaker --Echo --Recent viral symptoms. Check COVID/Flu/RSV. Viral illness could cause exacerbation of heart failure. BNP only slightly elevated, 661 --Continue Lasix 40mg daily --Chest x-ray showed mild vascular congestion Plan Diet: heart healthy GI Prophylaxis: NA DVT Prophylaxis: Eliquis IV fluids: 1L -> 250 mL/hr Lines/Tubes: peripheral IV Code Status: full code Time Spent With Patient Time: 59 minutes Subjective Date/time seen: 03/13/25 07:59 Interval history: Nausea vomiting and cough since Tuesday. Temperature 99.7 last night Gradually increasing lower extremity edema. Recently with green drainage bilaterally. Wears CPAP regularly at home. Venous Dopplers were negative for acute DVT. ABIs noted arterial occlusive disease to the left lower limb. Reports that his legs will swell and knee and he always has more swelling to the left leg As continue Lasix 40 mg b.i.d. for a year, no recent changes. Reports increased shortness of breath no chest pain Echo, Viral swab, culture wounds Review of Systems Review of Systems: All systems reviewed & are unremarkable except as noted in HPI and below Exam Narrative: General - Awake and alert. No acute distress Eyes - PERRLA, EOM intact ENT - No thrush, No erythema Neck - No noticeable or palpable swelling Lymph Nodes - No lymphadenopathy Cardiovascular - RRR no m/r/g, no JVD Lungs: Clear to auscultation, No wheezing, use of accessory muscles, rare basilar crackles . Skin - Skin warm and dry, no wounds or rashes Abdomen - Normal bowel sounds, abdomen soft and nontender Extremities - Bilateral LE edema, L>R. No cyanosis or clubbing Musculoskeletal - 5/5 strength, normal range of motion, no swollen or erythematous joints. Neurological ? Alert and oriented x 3, CN 2-12 grossly intact. Psych: Normal mood and affect Objective Data Vital Signs Vital Signs: Vital Signs - 24 hr 03/12/25 10:43 03/12/25 11:15 03/12/25 12:50 Temperature 98.5 F 97.5 F L 98.5 F Pulse Rate 81 79 79 Respiratory Rate 18 18 18 Blood Pressure 124/65 117/60 Pulse Oximetry 97 98 100 Oxygen Delivery Room Air 03/12/25 14:02 03/12/25 14:52 03/12/25 16:15 Temperature 98.8 F 97.6 F 99.4 F Pulse Rate 79 78 79 Respiratory Rate 18 18 16 Blood Pressure 112/64 132/64 107/60 Pulse Oximetry 100 98 100 Oxygen Delivery 03/12/25 18:46 03/12/25 20:00 03/12/25 21:19 Temperature 99.7 F H Pulse Rate 79 79 Respiratory Rate 18 18 Blood Pressure 111/60 Pulse Oximetry 96 96 Oxygen Delivery Room Air Room Air 03/13/25 05:56 Temperature 98.6 F Pulse Rate 79 Respiratory Rate 20 Blood Pressure 106/53 L Pulse Oximetry 97 Oxygen Delivery Intake/Output Intake/Output: Intake & Output 03/10/25 03/11/25 03/12/25 03/13/25 23:59 23:59 23:59 23:59 Intake Total 2840 2987.5 Output Total 950 1150 Balance 1890 1837.5 Meds/Results Medications: Active Medications Generic Name Dose Route Start Last Admin Trade Name Freq PRN Reason Stop Dose Admin Acetaminophen 650 mg 03/12/25 13:56 Acetaminophen 325 Mg Tablet PO Q4H PRN Mild Pain (1-3) or Fever Albuterol 2 puff 03/12/25 21:34 Albuterol Sulfate (*Sp) Aerosol 1 Puff INHALATION Q4H PRN Wheezing Alprazolam 1 mg 03/12/25 21:34 Alprazolam (*Crx) 0.5 Mg Tablet PO BID PRN Anxiety Apixaban 5 mg 03/12/25 21:35 03/12/25 22:13 Apixaban 5 Mg Tablet PO 5 mg Q12HR MEENU Administration Carvedilol 6.25 mg 03/12/25 21:40 03/12/25 22:13 Carvedilol 6.25 Mg Tablet PO 6.25 mg Q12HR MEENU Administration Diltiazem HCl 360 mg 03/13/25 09:00 Diltiazem Hcl Cd 180 Mg Cap.24hr PO QAM MEENU Furosemide 40 mg 03/13/25 09:00 Furosemide 40 Mg Tablet PO DAILY MEENU Sodium Chloride 1,000 mls @ 250 mls/hr 03/12/25 14:00 03/13/25 06:25 Normal Saline Iv IV CONT 250 mls/hr .Q4H MEENU Administration Piperacillin/Tazobactam/Dextrose 3.375 gm in 50 mls @ 100 mls/hr 03/12/25 18:00 03/13/25 06:24 Zosyn 3.375 Gm/Ns 50 Ml IVPB 100 mls/hr Q6H MEENU Administration Magnesium Oxide 400 mg 03/13/25 09:00 Magnesium Oxide 400 Mg Tablet PO BID MEENU Metronidazole 500 mg 03/13/25 09:00 Metronidazole 500 Mg Tablet XX PRN PRN Wound Care Miscellaneous Information 0 each 03/12/25 21:45 Dofetilide 250 Mg Tab- Nonformulary. Please Obtain A Home Supply If Possible. XX 04/11/25 21:44 CLARIFY MEENU Montelukast Sodium 10 mg 03/13/25 09:00 Montelukast Sodium 10 Mg Tablet PO DAILY [facility] Non-Formulary Medication 250 mcg 03/12/25 21:45 Dofetilide PO 04/11/25 21:44 Q12H MEENU Sacubitril/Valsartan 1 tab 03/12/25 21:45 03/12/25 22:13 Sacubitril/Valsartan 24-26 Mg Tablet PO 1 tab Q12HR MEENU Administration Fluticasone/Salmeterol 2 puff 03/13/25 08:00 Fluticasone/Salmeterol 230-21 Mcg Inhaler 1 Puff INHALATION Q12HRT MEENU Umeclidinium Brogan 1 puff 03/13/25 08:00 Umeclidinium Brogan 62.5 Mcg Ellipta INHALATION DAILYRT [facility] Vancomycin HCl 1 each 03/12/25 11:36 Vancomycin For Acute Kidney Injury IVPB PRN PRN Vancomycin Protocol Radiology Results: ITS Impressions Chest X-Ray 03/12/25 11:37 IMPRESSION: Mild pulmonary edema. Superimposed infection cannot be excluded. Ankle Brachial Index 03/12/25 16:18 IMPRESSION: 1. 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 2. No significant arterial occlusive disease in the right lower limb with normal right CALIN and TBI Venous Doppler Study 03/12/25 16:19 IMPRESSION: Negative bilateral lower extremity venous US. No deep vein thrombosis. Renal Ultrasound 03/12/25 16:24 IMPRESSION: 1. Normal kidneys without hydronephrosis. Labs Labs: Laboratory Results - last 24 hr 03/12/25 03/12/25 03/12/25 10:50 10:50 10:50 WBC 11.3 H RBC 3.85 L Hgb 11.2 L Hct 34.8 L MCV 90.4 MCH 29.1 MCHC 32.2 RDW 15.4 H Plt Count 198 MPV 10.2 Immature Gran % (Auto) 0.8 H Neut % (Auto) 81.0 H Lymph % (Auto) 7.1 L [place] % (Auto) 10.6 H Eos % (Auto) 0.1 Baso % (Auto) 0.4 Lymph # (Auto) 0.80 L [place] # (Auto) 1.2 H Eos # (Auto) 0.0 Baso # (Auto) 0.0 Abs Immat Gran (auto) 0.09 H Absolute Neuts (auto) 9.2 H Absolute Nucleated RBC 0.000 Nucleated RBC % 0.0 PT 19.2 H Cancelled INR 1.7 Cancelled APTT 39.8 H Sodium Potassium Chloride Carbon Dioxide Anion Gap BUN Creatinine Estim Creat Clear Calc Estimated GFR Glucose Hemoglobin A1c Lactic Acid Calcium Total Bilirubin AST ALT Alkaline Phosphatase Total Creatine Kinase Troponin I C-Reactive Protein NT-Pro-B Natriuret Pep Total Protein Albumin Lipase Urine Color Urine Appearance Urine pH Ur Specific [place] Urine Protein Urine Glucose (UA) Urine Ketones Ur Blood (Man) Urine Nitrate Urine Bilirubin Urine Urobilinogen Add Ur Microanalysis Leukocyte Esterase Rfl Urine RBC Urine WBC Ur Squamous Epith Cells Calcium Oxalate Crystal Urine Bacteria Hyaline Casts U Random Total Protein Ur Random Sodium Ur Random Potassium Urine Creatinine Protein/Creat Ratio 2 03/12/25 03/12/25 03/12/25 10:50 12:06 14:18 WBC RBC Hgb Hct MCV MCH MCHC RDW Plt Count MPV Immature Gran % (Auto) Neut % (Auto) Lymph % (Auto) [place] % (Auto) Eos % (Auto) Baso % (Auto) Lymph # (Auto) [place] # (Auto) Eos # (Auto) Baso # (Auto) Abs Immat Gran (auto) Absolute Neuts (auto) Absolute Nucleated RBC Nucleated RBC % PT INR APTT Cancelled Sodium 134 L Potassium 3.1 L Chloride 99 Carbon Dioxide 24 Anion Gap 11 BUN 32 H Creatinine 2.29 H Estim Creat Clear Calc 55 Estimated GFR 30 L Glucose 152 H Hemoglobin A1c Lactic Acid 1.3 Calcium 8.7 Total Bilirubin 0.7 AST 29 ALT 25 Alkaline Phosphatase 80 Total Creatine Kinase 45 L Troponin I < 0.012 C-Reactive Protein 24.0 H NT-Pro-B Natriuret Pep 661 H Total Protein 7.6 Albumin 3.4 L Lipase 64 Urine Color Urine Appearance Urine pH Ur Specific [place] Urine Protein Urine Glucose (UA) Urine Ketones Ur Blood (Man) Urine Nitrate Urine Bilirubin Urine Urobilinogen Add Ur Microanalysis Leukocyte Esterase Rfl Urine RBC Urine WBC Ur Squamous Epith Cells Calcium Oxalate Crystal Urine Bacteria Hyaline Casts U Random Total Protein 61 Ur Random Sodium 15 Ur Random Potassium 28.1 Urine Creatinine 167.2 Protein/Creat Ratio 2 03/12/25 03/12/25 03/13/25 14:18 22:09 05:25 WBC 11.5 H RBC 3.14 L Hgb 9.2 L Hct 28.9 L MCV 92.0 MCH 29.3 MCHC 31.8 L RDW 15.8 H Plt Count 152 MPV 10.4 Immature Gran % (Auto) 0.7 H Neut % (Auto) 79.8 H Lymph % (Auto) 7.6 L [place] % (Auto) 11.6 H Eos % (Auto) 0.0 Baso % (Auto) 0.3 Lymph # (Auto) 0.87 L [place] # (Auto) 1.3 H Eos # (Auto) 0.0 Baso # (Auto) 0.0 Abs Immat Gran (auto) 0.08 H Absolute Neuts (auto) 9.2 H Absolute Nucleated RBC 0.000 Nucleated RBC % 0.0 PT INR APTT Sodium 135 L Potassium 3.6 Chloride 104 Carbon Dioxide 24 Anion Gap 7 BUN 26 H Creatinine 2.33 H Estim Creat Clear Calc 55 Estimated GFR 30 L Glucose 108 Hemoglobin A1c 5.1 Lactic Acid Calcium 8.0 L Total Bilirubin 0.6 AST 22 ALT 15 Alkaline Phosphatase 64 Total Creatine Kinase Troponin I C-Reactive Protein 28.6 H NT-Pro-B Natriuret Pep Total Protein 6.3 Albumin 2.8 L Lipase Urine Color [place] H Urine Appearance Turbid H Urine pH 5.5 Ur Specific [place] 1.016 Urine Protein 2+ H Urine Glucose (UA) Negative Urine Ketones Negative Ur Blood (Man) 3+ H Urine Nitrate Negative Urine Bilirubin Negative Urine Urobilinogen 1.0 Add Ur Microanalysis Yes Leukocyte Esterase Rfl 1+ H Urine RBC >100 H Urine WBC 0-5 Ur Squamous Epith Cells Occasional Calcium Oxalate Crystal Present Urine Bacteria None seen Hyaline Casts 0-2 U Random Total Protein Ur Random Sodium Ur Random Potassium Urine Creatinine 170.4 Protein/Creat Ratio 2 0.36 H Quality VTE Prophylaxis VTE prophylaxis: mechanical ordered (SCD's not feasible with LE wound) and pharmacologic ordered (on hold for drop in blood count. ) Hospitalist MIPS Advance Care Plan I have confirmed that the patient's Advanced Care Plan is present, code status is documented, or surrogate decision maker is listed in patient medical record.: Yes Medication Reconciliation I have utilized all available resources to obtain, update and review the patients current medications (includes all prescriptions, OTC, herbals, cannabis, and nutritional supplements).: Yes
[2025-03-13] MEDS: MONTELUKAST SODIUM 10 MG TABLET PO (09:42)
[2025-03-13] MEDS: UMECLIDINIUM BROMIDE 62.5 MCG ELLIPTA 1 PUFF INHALATION (09:42)
[2025-03-13] MEDS: FLUTICASONE/SALMETEROL 230-21 MCG INHALER 1 PUFF 2 PUFF INHALATION ×2 (09:43→20:55)
[2025-03-13] MEDS: APIXABAN 5 MG TABLET PO ×2 (09:43→21:50)
[2025-03-13] MEDS: MAGNESIUM OXIDE 400 MG TABLET PO ×2 (09:43→17:50)
[2025-03-13] MEDS: SACUBITRIL/VALSARTAN 24-26 MG TABLET 1 TAB PO ×2 (09:43→21:50)
[2025-03-13] MEDS: FUROSEMIDE 40 MG TABLET PO (09:43)
[2025-03-13] MEDS: dilTIAZem HCL CD 180 MG CAP.24HR 360 MG PO (09:43)
--- NOTE | 2025-03-13 10:57 | P.CONNP_ITS ---
Assessment and Plan Assessment and plan (1) Acute kidney injury: Code(s): N17.9 - Acute kidney failure, unspecified Status: Acute Assessment and Plan: * as noted by admission labs * multifactorial etiology: * acute infection (bilateral lower extremity cellulitis +/- UTI) * relative hypotension * medications (Entresto + diuretics) * other(?) * evaluation to date noted: * renal ultrasound normal * urine electrolyte prerenal (however, this might be secondary to his cardiomyopathy rather than volume depletion) * mild proteinuria * UA with protein and blood (?infection) * CPK okay * check serologies * follow trend of repeat labs and UOP (2) Stage 3b chronic kidney disease: Code(s): N18.32 - Chronic kidney disease, stage 3b Status: Chronic Assessment and Plan: * baseline creatinine seems to run ~ 1.5 - 1.6mg/dl since 2023 * last outpatient creatinine - 1.65mg/dl on 10/30/24 * presumably due to hypertension, vascular disease/CHF/cardiomyopathy, and obesity (3) Cellulitis of left leg: Code(s): L03.116 - Cellulitis of left lower limb Status: Acute Assessment and Plan: * extensive history of venous stasis ulcerations on BLEs * now complicated by acute infection/cellulitis * on antibiotics * follow culture data * wound carefollowing * pain control (4) CHF (congestive heart failure): Code(s): I50.9 - Heart failure, unspecified Status: Acute Assessment and Plan: * known history * continue GMDT as tolerated * Echo ordered to reassess * pacemaker in place * on diuretics (5) Urinary tract infection: Code(s): N39.0 - Urinary tract infection, site not specified Status: Acute Assessment and Plan: * suggested by admission UA * follow urine culture * on antibiotics already for #3 (6) Atrial fibrillation: Qualifiers: Atrial fibrillation type: unspecified Qualified Code(s): I48.91 - Unspecified atrial fibrillation Code(s): I48.91 - Unspecified atrial fibrillation Status: Chronic Assessment and Plan: * rate control strategy * on anticoagulation (7) HTN (hypertension): Qualifiers: Hypertension type: primary hypertension Qualified Code(s): I10 - Essential (primary) hypertension Code(s): I10 - Essential (primary) hypertension Status: Chronic Assessment and Plan: * reasonable control * follow trend of hemodynamics (8) Anemia: Code(s): D64.9 - Anemia, unspecified Status: Acute Assessment and Plan: * noted on admission * likely related to CLAUDIA, CKD, and acute illness * PRBC per protocol * follow trend of H/H I will continue to follow the patient with you while he remains hospitalized and make further recommendations as deemed necessary. Thank you for allowing me to participate in the care of this patient. L History of Present Illness Reason for Consult Consult date: 03/13/25 Reason for consult: acute renal failure (on chronic kidney disease) Chief Complaint Chief complaint: Leg Wound/Cellulitis/Renal Failure/Hypokalemia History of Present Illness Narrative: The patient is a 49 y/o male with a past medical history as outlined below who presented to [facility] ER with complaints of increased bilateral lower extremity swelling and wounds. He reports he has known history of wounds to his bilateral lower extremities as far back as 2011. He reports wound care while he was at rehab after a significant medical episode and resolved for 2 years. He reports they returned around 2 - 2.5 months ago. He developed scabs and the ulcerations/wounds returned. Now the swelling and wounds, particularly in his left lower extremity, have become more swollen in association with significant pain and erythema in the last 2 - 3 days. He denies associated fever, chills, body aches, nausea, vomiting, or diarrhea. He reports no known history of arterial insufficiency, venous insufficiency, or DVTs. On presentation to the ER, his vitals were 98.5? F, HR 81, R 18, 124/65, and 97% on RA. Routine testing significant for WBC 11.3, hemoglobin 11.2, potassium 3.1, creatinine 2.29, glucose 152, lactic 1.3, CRP 24. His CXR showed mild pulmonary edema, superimposed infection cannot be excluded. Given ther concerns for infection in his lower extremities, appropriate cultures were obtained and he was started on antibiotic therapy. He was subsequently admitted to the hospital for further evaluation and therapy. Renal consultation was requested due to his acute kidney injury/ acute renal failure on top of his baseline chronic kidney disease. Initially, the patient stated that he had not had any issues or problems with kidney disease but then later stated that his primary care physician did went to see a electroencephalograph technician since his last creatinine by recent blood work was around 1.6 mg/dL. From review of records I was able to obtain, his baseline creatinine runs around 1.5- 1.6 mg/dL since 2023. The presumed etiology of his renal insufficiency is probably his known cardiomyopathy, hypertension, vascular disease, and obesity. As noted admission, his creatinine was higher than his baseline higher has not really significantly changed in last 24 hour since admission. Currently, at the time my evaluation, the patient's major complaint is that of severe and significant pain in his lower extremities. Review of Systems 2 Review of Systems: As per HPI. [facility] Past Medical History Medical History Anxiety Venous stasis ulcers of both lower extremities Kidney stones Asthma History of pacemaker HTN (hypertension) Cardiomyopathy Atrial fibrillation Colon cancer screening Family History Family History Mother Heart attack Grandparent Stomach cancer Heart attack Father Heart attack Social History Social History Smoking status: Former smoker Tobacco type: cigarettes Smokeless tobacco user: chewing tobacco Alcohol intake: current Drinks per week: 12 Substance use: never Substance use type: marijuana Other substance usage details: once or twice a year Do You Feel Safe in your Home?: Yes Lack of Transportation: No Lack of Food: Never True Current Housing: I Have Housing Concerned About Future Housing: Decline to Answer Difficulty Paying Gas/Electric Bills: Decline to Answer Difficulty Paying for Meds: Decline to Answer Currently Unemployed: Decline to Answer Education: High School Diploma/GED Difficulty w/ Childcare or Family Care: Decline to Answer Living arrangements: alone Spiritual care concerns: No Meds Home Medications and Allergies Home Medications ?Medication ?Instructions ?Recorded ?Confirmed ?Type albuterol sulfate 90 mcg/actuation 90 mcg inhalation PRN PRN Wheezing 12/14/23 03/12/25 History aerosol inhaler alprazolam 1 mg tablet 1 mg PO BID PRN Anxiety 12/14/23 03/12/25 History apixaban 5 mg tablet (Eliquis) 5 mg PO Q12H 12/14/23 03/12/25 History carvedilol 6.25 mg tablet (Coreg) 6.25 mg PO BID 12/14/23 03/12/25 History furosemide 40 mg tablet 40 mg PO DAILY 12/14/23 03/12/25 History montelukast 10 mg tablet 10 mg PO DAILY 12/14/23 03/12/25 History sacubitril 24 mg-valsartan 26 mg 24 - 26 tablet PO BID 12/14/23 03/12/25 History tablet (Entresto) diltiazem HCl 360 mg capsule,24 360 mg PO DAILY 03/12/25 03/12/25 History hr,extended release dofetilide 250 mcg capsule 250 mcg PO Q12H 03/12/25 03/12/25 History fluticasone 500 mcg-salmeterol 50 1 inh inhalation Q12H 03/12/25 03/12/25 History mcg/dose blistr powdr for inhalation (Advair Diskus) magnesium oxide 400 mg (241.3 mg 400 mg PO BID 03/12/25 03/12/25 History magnesium) tablet tiotropium bromide 1.25 2 puff inhalation DAILY 03/12/25 03/12/25 History mcg/actuation mist for inhalation (Spiriva Respimat) doxycycline hyclate 100 mg tablet 100 mg PO Q12HR 10 days #20 tabs 03/17/25 Rx levofloxacin 750 mg tablet 750 mg PO .q48 #5 tabs 03/17/25 Rx Allergies Allergy/AdvReac Type Severity Reaction Status Date / Time No Known Allergies Allergy Verified 03/12/25 16:37 Vital Signs Vital Signs Temp Pulse Resp BP Pulse Ox O2 Del Method 03/13/25 09:43 96 Room Air 03/13/25 09:42 78 03/13/25 08:00 Room Air 03/13/25 05:56 98.6 F 79 20 106/53 L 97 03/12/25 21:19 99.7 F H 79 18 111/60 96 03/12/25 20:00 79 18 96 Room Air 03/12/25 18:46 Room Air Exam 2 Narrative: GENERAL APPEARANCE: large Caucasua male in no acute distress HEENT: normocephalic, atraumatic, normal conjunctiva and sclera, nares patient NECK: no lymphadenopathy, thyromegaly, or JVD MOUTH: normal lips, teeth, and gums CARDIOVASCULAR: RRR, normal S1 and S2, no rub detected RESPIRATORY: clear to auscultation bilaterally ABDOMEN: soft, nontender, nondistended, positive bowel sounds present EXTREMITIES: no evidence of cyanosis, clubbing, 2+ edema NEUROLOGICAL: alert and oriented x 3; CN II - XII intact bilaterally; no focal deficits noted SKIN: noted bilateral LE erythema with drainage from wounds Results Lab Results 03/17/25 05:46 03/17/25 05:46 Lab results: Most recent lab results Calcium 8.0 mg/dL (8.4-10.2) L 03/13/25 05:25 Urine Creatinine 167.2 mg/dL 03/12/25 14:18 Urine Creatinine 170.4 mg/dL 03/12/25 14:18
[2025-03-13] MEDS: VANCOMYCIN 2,000 MG/NS 500 ML 2,000 MG/500 ML BAG 250 MG IVPB (15:02)
[2025-03-13] MEDS: PERFLUTREN LIPID MICROSPHERES 1.5 ML VIAL DILUTED TO 10 ML TOTAL VOLUME IV PUSH (16:20)
--- NOTE | 2025-03-13 16:47 | IVDEFINITY ---
Prior to administration of IV Definity the patient was educated on the risks and benefits of the imaging enhancing agent including potential adverse side effects. The patient verbalized understanding. Allergies were verified. No exclusion criteria were identified and at least one of the following inclusion criteria were met: 1) physician request, 2) patient technically difficult to image (per the [place] [employer] guidelines of two or more segments not discernable within the apical view), or 3) questionable left ventricular function. ?
[2025-03-13 17:16] LABS: Influenza A QL RT-PCR Negative (Negative); Influenza B QL RT-PCR Negative (Negative); RSV RNA, RT-PCR Negative (Negative); SARS-CoV-2 RNA PCR Negative (Negative)
[2025-03-13] MEDS: PIPERACILLIN/TAZOBACTAM SOD 3.375 GM in SODIUM CHLORIDE 0.9% IV 50 ML 100 ML IVPB (18:31)
[2025-03-13 21:44] LABS: Urine Eos QC 2nd Tech Confirmed
[2025-03-14] VITALS (8 sets, daily range): BP systolic 108–121; BP diastolic 58–74; PULSE 76–82; RESP 16–20; TEMP 36.8–37.2; O2SAT 95–99
[2025-03-14] MEDS: SODIUM CHLORIDE 0.9% IV 1,000 ML 250 ML IV CONT ×2 (00:01→05:34)
[2025-03-14] MEDS: PIPERACILLIN/TAZOBACTAM SOD 3.375 GM in SODIUM CHLORIDE 0.9% IV 50 ML 100 ML IVPB ×4 (00:02→18:40)
[2025-03-14 02:32] LABS: MRSA (PCR) NOT DETECTED (NOT DETECTE)
[2025-03-14] MEDS: WATER FOR IRRIGATION, STERILE 500 ML BOTTLE (05:35)
[2025-03-14 07:13] LABS: Hematocrit 29.6 % (42.0-52.0); Hemoglobin 9.3 g/dL (14.0-18.0); Immature Granulocyte Percent A 0.5 % (0-0.5); Lymphocytes Absolute Auto 0.83 K/mm3 (0.9-3.2); Mean Corpuscular HGB Conc 31.4 g/dl (32-36); Mean Corpuscular Hemoglobin 29.0 pg (26-34); Mean Corpuscular Volume 92.2 fl (80-100); Nucleated Red Blood Cells Absolute Auto 0.000 K/mm3 (0.0-0.012); Nucleated Red Blood Cells Perc 0.0 % (0.0-0.2); Platelet Count Result 168 k/mm3 (150-375); Red Blood Count 3.21 M/mm3 (4.6-6.20); White Blood Count 11.3 K/mm3 (4.5-10.0)
[2025-03-14 07:27] LABS: Anion Gap 8 mmol/L (4-12); Blood Urea Nitrogen 23 mg/dL (9-20); Calcium 8.4 mg/dL (8.4-10.2); Carbon Dioxide 21 mmol/L (22-30); Chloride 106 mmol/L (98-107); Estimated CRCL calculation 66 ml/min; Estimated Glomerular Filt Rate 37; Glucose 97 mg/dL (65-110); Potassium 3.2 mmol/L (3.4-5.0); Sodium 135 mmol/L (137-145)
[2025-03-14 08:02] LABS: Thyroid Stimulating Hormone Reflex 0.903 uIU/mL (0.465-4.68)
[2025-03-14] MEDS: UMECLIDINIUM BROMIDE 62.5 MCG ELLIPTA 1 PUFF INHALATION (08:08)
[2025-03-14] MEDS: FLUTICASONE/SALMETEROL 230-21 MCG INHALER 1 PUFF 2 PUFF INHALATION ×2 (08:09→20:53)
[2025-03-14] MEDS: MONTELUKAST SODIUM 10 MG TABLET PO (08:47)
[2025-03-14] MEDS: dilTIAZem HCL CD 180 MG CAP.24HR 360 MG PO (08:47)
[2025-03-14] MEDS: MAGNESIUM OXIDE 400 MG TABLET PO ×2 (08:48→17:44)
[2025-03-14] MEDS: FUROSEMIDE 40 MG TABLET PO (08:48)
[2025-03-14] MEDS: SACUBITRIL/VALSARTAN 24-26 MG TABLET 1 TAB PO ×2 (08:48→21:19)
--- NOTE | 2025-03-14 08:53 | P.PNIM_ITS ---
Progress Note: A&P Assessment and Plan (1) Cellulitis of left leg: Code(s): L03.116 - Cellulitis of left lower limb Status: Acute Assessment and Plan: Hx of venous stasis ulcerations of the bilateral lower extremities with cellulitis. Treated and resolved for 2 weeks, returned and have been present for the past 2 months. Has now developed pain and erythema specifically to the left lower extremity, however on exam both lower extremities appear erythematous and infected with purulent drainage. - started on Zosyn and Vancomycin on 03/12, continue pending cultures - wound consulted, continue local wound care. - staph screen. Change Vanc to doxy pending cultures since unclear improvement - wound culture of the LLE pending, growing GNB's - check Dopplers of BLE and ABIs - analgesics prn - CRP elevated, trending - blood cultures obtained in ED on 03/12--NGTD (2) Venous stasis ulcers of both lower extremities: Code(s): I83.019 - Varicose veins of right lower extremity with ulcer of unspecified site; I83.029 - Varicose veins of left lower extremity with ulcer of unspecified site; L97.919 - Non-pressure chronic ulcer of unspecified part of right lower leg with unspecified severity; L97.929 - Non-pressure chronic ulcer of unspecified part of left lower leg with unspecified severity Status: Acute Assessment and Plan: - patient reports hx intermittent edema to Bilateral lower legs, often associated with shortness of breath - checking US of BLE and ABIs, see above (3) Elevated glucose: Code(s): R73.09 - Other abnormal glucose Status: Acute Assessment and Plan: - no prior hx of DM, initial glucose 152 - HgbA1C 5.1 (4) Renal insufficiency: Code(s): N28.9 - Disorder of kidney and ureter, unspecified Status: Acute Assessment and Plan: - no known hx of CKD or renal insufficiency, no previous lab work available for comparison. Per patient most recent creatinine 1.6, was referred to a adult services librarian but has not had appt yet, was scheduled for this week which he has had to cancel due to admission. - creatinine 2.29, BUN 32, GFR 30 - renal ultrasound normal kidneys, no hydonephrosis - check CK, urine sodium, protein/creatinine, Urine potassium, urine creatinine, and UA - nephrology consulted, appreciate recommendations --risk factors for CKD including HTN, cardiomyopathy. HgbA1c was normal Based off his previously reported level, CLAUDIA superimposed on CKD. Newly dark urine. Large blood on UA - monitor I&Os --Bladder scan --Creatinine improving (5) Atrial fibrillation: Qualifiers: Atrial fibrillation type: unspecified Qualified Code(s): I48.91 - Unspecified atrial fibrillation Code(s): I48.91 - Unspecified atrial fibrillation Status: Chronic Assessment and Plan: - continue home medication: Eliquis, diltiazem, dofetillide (6) HTN (hypertension): Qualifiers: Hypertension type: primary hypertension Qualified Code(s): I10 - Essential (primary) hypertension Code(s): I10 - Essential (primary) hypertension Status: Chronic Assessment and Plan: - chronic, currently 111/60 - continue home medications: Entresto, Lasix, Coreg - monitor (7) Anemia: Code(s): D64.9 - Anemia, unspecified Status: Acute Assessment and Plan: Blood count trending down, 11.2>9.2. Has microscopic hematuria on UA but not visibly bloody --Follow CBC, type & screen --Monitor for black/bloody stools --Hold eliquis (8) CHF (congestive heart failure): Code(s): I50.9 - Heart failure, unspecified Status: Acute Assessment and Plan: hx CHF has a pacemaker --Echo --Recent viral symptoms. Check COVID/Flu/RSV. Viral illness could cause exacerbation of heart failure. BNP only slightly elevated, 661 --Continue Lasix 40mg daily --Chest x-ray showed mild vascular congestion. Stopped fluids 03/13 TTE 1. The left ventricle is mildly dilated with borderline normal systolic function. The left ventricular ejection fraction is visually estimated to be 50%. 2. The right ventricle is normal in size and systolic function. 3. This was a technically difficult study with poorly visualized acoustic windows. Plan Diet: heart healthy GI Prophylaxis: NA DVT Prophylaxis: Eliquis IV fluids: 1L -> stop Lines/Tubes: peripheral IV Code Status: full code Time Spent With Patient Time: 56 minutes Subjective Date/time seen: 03/14/25 08:53 Interval history: No nausea/vomiting overnight. Afebrile overnight. Left leg with significant erythema and edema. Recently with green drainage bilaterally. Culture growing GNB No shortness of breath or chest pain Review of Systems Review of Systems: All systems reviewed & are unremarkable except as noted in HPI and below Exam Narrative: General - Awake and alert. No acute distress Eyes - PERRLA, EOM intact ENT - No thrush, No erythema Neck - No noticeable or palpable swelling Lymph Nodes - No lymphadenopathy Cardiovascular - RRR no m/r/g, no JVD Lungs: Clear to auscultation, No wheezing, use of accessory muscles, rare basilar crackles . Skin - Skin warm and dry, no wounds or rashes Abdomen - Normal bowel sounds, abdomen soft and nontender Extremities - Bilateral LE edema, L>R. No cyanosis or clubbing. Erythema to left leg Musculoskeletal - 5/5 strength, normal range of motion, no swollen or erythematous joints. Neurological ? Alert and oriented x 3, CN 2-12 grossly intact. Psych: Normal mood and affect Objective Data Vital Signs Vital Signs: Vital Signs - 24 hr 03/13/25 09:42 03/13/25 09:43 03/13/25 14:00 Temperature 97.7 F Pulse Rate 78 74 Respiratory Rate 18 Blood Pressure 108/55 L Pulse Oximetry 96 97 Oxygen Delivery Room Air 03/13/25 20:00 03/13/25 20:55 03/13/25 21:50 Temperature Pulse Rate 80 80 80 Respiratory Rate 16 18 Blood Pressure Pulse Oximetry 97 Oxygen Delivery Autopap 03/13/25 21:51 03/13/25 23:20 03/14/25 05:22 Temperature 97.3 F L 98.3 F Pulse Rate 80 78 Respiratory Rate 18 16 18 Blood Pressure 120/60 116/64 Pulse Oximetry 97 95 Oxygen Delivery Autopap 03/14/25 08:48 Temperature Pulse Rate 79 Respiratory Rate Blood Pressure Pulse Oximetry Oxygen Delivery Intake/Output Intake/Output: Intake & Output 03/11/25 03/12/25 03/13/25 03/14/25 23:59 23:59 23:59 23:59 Intake Total 2840 5967.5 1650 Output Total 950 1650 650 Balance 1890 4317.5 1000 Meds/Results Medications: Active Medications Generic Name Dose Route Start Last Admin Trade Name Freq PRN Reason Stop Dose Admin Acetaminophen 650 mg 03/12/25 13:56 Acetaminophen 325 Mg Tablet PO Q4H PRN Mild Pain (1-3) or Fever Albuterol 2 puff 03/12/25 21:34 Albuterol Sulfate (*Sp) Aerosol 1 Puff INHALATION Q4H PRN Wheezing Alprazolam 1 mg 03/12/25 21:34 Alprazolam (*Crx) 0.5 Mg Tablet PO BID PRN Anxiety Apixaban 5 mg 03/12/25 21:35 03/13/25 21:50 Apixaban 5 Mg Tablet PO 5 mg Q12HR MEENU Administration Carvedilol 6.25 mg 03/12/25 21:40 03/14/25 08:48 Carvedilol 6.25 Mg Tablet PO 6.25 mg Q12HR MEENU Administration Diltiazem HCl 360 mg 03/13/25 09:00 03/14/25 08:47 Diltiazem Hcl Cd 180 Mg Cap.24hr PO 360 mg QAM MEENU Administration Furosemide 40 mg 03/13/25 09:00 03/14/25 08:48 Furosemide 40 Mg Tablet PO 40 mg DAILY MEENU Administration Sodium Chloride 1,000 mls @ 250 mls/hr 03/12/25 14:00 03/14/25 05:35 Normal Saline Iv IV CONT Not Given .Q4H MEENU Piperacillin Sod/Tazobactam 50 mls @ 100 mls/hr 03/13/25 18:00 03/14/25 06:04 Sod 3.375 gm/ Sodium Chloride IVPB Infused Q6H MEENU Infusion Magnesium Oxide 400 mg 03/13/25 09:00 03/14/25 08:48 Magnesium Oxide 400 Mg Tablet PO 400 mg BID MEENU Administration Montelukast Sodium 10 mg 03/13/25 09:00 03/14/25 08:47 Montelukast Sodium 10 Mg Tablet PO 10 mg DAILY MEENU Administration Dofetilide 250 Mcg 250 mcg 03/12/25 12:00 03/14/25 08:51 Capsule PO 04/11/25 11:59 250 mcg Q12HR MEENU Administration Sacubitril/Valsartan 1 tab 03/12/25 21:45 03/14/25 08:48 Sacubitril/Valsartan 24-26 Mg Tablet PO 1 tab Q12HR MEENU Administration Fluticasone/Salmeterol 2 puff 03/13/25 08:00 03/14/25 08:09 Fluticasone/Salmeterol 230-21 Mcg Inhaler 1 Puff INHALATION 2 puff Q12HRT MEENU Administration Umeclidinium Rosalie 1 puff 03/13/25 08:00 03/14/25 08:08 Umeclidinium Rosalie 62.5 Mcg Ellipta INHALATION 1 puff DAILYRT MEENU Administration Vancomycin HCl 1 each 03/12/25 11:36 Vancomycin For Acute Kidney Injury IVPB PRN PRN Vancomycin Protocol Radiology Results: ITS Impressions Chest X-Ray 03/12/25 11:37 IMPRESSION: Mild pulmonary edema. Superimposed infection cannot be excluded. Ankle Brachial Index 03/12/25 16:18 IMPRESSION: 1. 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 2. No significant arterial occlusive disease in the right lower limb with normal right CALIN and TBI Venous Doppler Study 03/12/25 16:19 IMPRESSION: Negative bilateral lower extremity venous US. No deep vein thrombosis. Renal Ultrasound 03/12/25 16:24 IMPRESSION: 1. Normal kidneys without hydronephrosis. Labs Labs: Laboratory Results - last 24 hr 03/13/25 03/13/25 03/13/25 11:45 16:21 19:44 WBC RBC Hgb Hct MCV MCH MCHC RDW Plt Count MPV Immature Gran % (Auto) Neut % (Auto) Lymph % (Auto) [place] % (Auto) Eos % (Auto) Baso % (Auto) Lymph # (Auto) [place] # (Auto) Eos # (Auto) Baso # (Auto) Abs Immat Gran (auto) Absolute Neuts (auto) Absolute Nucleated RBC Nucleated RBC % Sodium Potassium Chloride Carbon Dioxide Anion Gap BUN Creatinine Estim Creat Clear Calc Estimated GFR Glucose Calcium TSH (Reflex) Urine Eosinophils None seen Nasal MRSA (PCR) Vancomycin Trough 7.9 L CARLOS ALBERTO Screen CARLOS ALBERTO Titer CARLOS ALBERTO Titer 2 CARLOS ALBERTO Titer 3 CARLOS ALBERTO Pattern CARLOS ALBERTO Pattern 2 CARLOS ALBERTO Pattern 3 CARLOS ALBERTO Comment Glomerular Base Memb Ab Complement C3 Complement C4 [place] Boro/Lambda Ratio Free [place] Boro Light Chains Free Lambda Light Chain Influenza A (RT-PCR) Negative Influenza B (RT-PCR) Negative RSV (RT-PCR) Negative SARS-CoV-2 RNA (RT-PCR) Negative Miscellaneous Test Blood Type Antibody Screen 03/14/25 03/14/25 03/14/25 01:20 06:58 06:59 WBC 11.3 H RBC 3.21 L Hgb 9.3 L Hct 29.6 L MCV 92.2 MCH 29.0 MCHC 31.4 L RDW 15.8 H Plt Count 168 MPV 10.7 H Immature Gran % (Auto) 0.5 Neut % (Auto) 80.0 H Lymph % (Auto) 7.4 L Clayton % (Auto) 11.6 H Eos % (Auto) 0.3 Baso % (Auto) 0.2 Lymph # (Auto) 0.83 L Clayton # (Auto) 1.3 H Eos # (Auto) 0.0 Baso # (Auto) 0.0 Abs Immat Gran (auto) 0.06 H Absolute Neuts (auto) 9.0 H Absolute Nucleated RBC 0.000 Nucleated RBC % 0.0 Sodium 135 L Potassium 3.2 L Chloride 106 Carbon Dioxide 21 L Anion Gap 8 BUN 23 H Creatinine 1.93 H Estim Creat Clear Calc 66 Estimated GFR 37 L Glucose 97 Calcium 8.4 TSH (Reflex) 0.903 Urine Eosinophils Nasal MRSA (PCR) Not detected Vancomycin Trough CARLOS ALBERTO Screen Cancelled CARLOS ALBERTO Titer Cancelled CARLOS ALBERTO Titer 2 Cancelled CARLOS ALBERTO Titer 3 Cancelled CARLOS ALBERTO Pattern Cancelled CARLOS ALBERTO Pattern 2 Cancelled CARLOS ALBERTO Pattern 3 Cancelled CARLOS ALBERTO Comment Cancelled Glomerular Base Memb Ab Cancelled Complement C3 76 L Complement C4 41.5 [place]/Lambda Ratio Cancelled Free [place] Light Chains Cancelled Free Lambda Light Chain Influenza A (RT-PCR) Influenza B (RT-PCR) RSV (RT-PCR) SARS-CoV-2 RNA (RT-PCR) Miscellaneous Test Blood Type Antibody Screen 03/14/25 06:59 WBC RBC Hgb Hct MCV MCH MCHC RDW Plt Count MPV Immature Gran % (Auto) Neut % (Auto) Lymph % (Auto) [place] % (Auto) Eos % (Auto) Baso % (Auto) Lymph # (Auto) [place] # (Auto) Eos # (Auto) Baso # (Auto) Abs Immat Gran (auto) Absolute Neuts (auto) Absolute Nucleated RBC Nucleated RBC % Sodium Potassium Chloride Carbon Dioxide Anion Gap BUN Creatinine Estim Creat Clear Calc Estimated GFR Glucose Calcium TSH (Reflex) Urine Eosinophils Nasal MRSA (PCR) Vancomycin Trough CARLOS ALBERTO Screen CARLOS ALBERTO Titer CARLOS ALBERTO Titer 2 CARLOS ALBERTO Titer 3 CARLOS ALBERTO Pattern CARLOS ALBERTO Pattern 2 CARLOS ALBERTO Pattern 3 CARLOS ALBERTO Comment Glomerular Base Memb Ab Complement C3 Complement C4 [place] Boro/Lambda Ratio Free [place] Light Chains Cancelled Free Lambda Light Chain Cancelled Influenza A (RT-PCR) Influenza B (RT-PCR) RSV (RT-PCR) SARS-CoV-2 RNA (RT-PCR) Miscellaneous Test Cancelled Blood Type O Positive Antibody Screen Negative Quality VTE Prophylaxis VTE prophylaxis: mechanical ordered (SCD's not feasible with LE wound) and pharm acologic ordered (on hold for drop in blood count. ) Hospitalist MIPS Advance Care Plan I have confirmed that the patient's Advanced Care Plan is present, code status is documented, or surrogate decision maker is listed in patient medical record.: Yes Medication Reconciliation I have utilized all available resources to obtain, update and review the patients current medications (includes all prescriptions, OTC, herbals, cannabis, and nutritional supplements).: Yes
[2025-03-14] MEDS: POTASSIUM CHLORIDE 20 MEQ ER TABLET 40 MEQ PO ×2 (10:01→17:45)
--- NOTE | 2025-03-14 12:03 | P.PNNP_ITS ---
Progress Note: A&P Assessment and Plan (1) Acute kidney injury: Code(s): N17.9 - Acute kidney failure, unspecified Status: Acute Assessment and Plan: * slow improvement noted * as noted by admission labs * multifactorial etiology: * acute infection (bilateral lower extremity cellulitis +/- UTI) * relative hypotension * medications (Entresto + diuretics) * other(?) * evaluation to date noted: * renal ultrasound normal * urine electrolyte prerenal (however, this might be secondary to his cardiomyopathy rather than volume depletion) * mild proteinuria * UA with protein and blood (?infection) * CPK okay * serologies pending * follow trend of repeat labs and UOP (2) Stage 3b chronic kidney disease: Code(s): N18.32 - Chronic kidney disease, stage 3b Status: Chronic Assessment and Plan: * baseline creatinine seems to run ~ 1.5 - 1.6mg/dl since 2023 * last outpatient creatinine - 1.65mg/dl on 10/30/24 * presumably due to hypertension, vascular disease/CHF/cardiomyopathy, and obesity (3) Cellulitis of left leg: Code(s): L03.116 - Cellulitis of left lower limb Status: Acute Assessment and Plan: * extensive history of venous stasis ulcerations on BLEs * now complicated by acute infection/cellulitis * on antibiotics * follow culture data * wound carefollowing * pain control (4) CHF (congestive heart failure): Code(s): I50.9 - Heart failure, unspecified Status: Acute Assessment and Plan: * known history * continue GMDT as tolerated * Echo (03/13) results noted: * left ventricular ejection fraction is visually estimated to be 50%. * right ventricle is normal in size and systolic function * technically difficult study with poorly visualized acoustic windows * pacemaker in place * on diuretics (5) Urinary tract infection: Code(s): N39.0 - Urinary tract infection, site not specified Status: Acute Assessment and Plan: * suggested by admission UA * follow urine culture * on antibiotics already for #3 (6) Atrial fibrillation: Qualifiers: Atrial fibrillation type: unspecified Qualified Code(s): I48.91 - Unspecified atrial fibrillation Code(s): I48.91 - Unspecified atrial fibrillation Status: Chronic Assessment and Plan: * rate control strategy * on anticoagulation (7) HTN (hypertension): Qualifiers: Hypertension type: primary hypertension Qualified Code(s): I10 - Essential (primary) hypertension Code(s): I10 - Essential (primary) hypertension Status: Chronic Assessment and Plan: * reasonable control * follow trend of hemodynamics (8) Anemia: Code(s): D64.9 - Anemia, unspecified Status: Acute Assessment and Plan: * noted on admission * likely related to CLAUDIA, CKD, and acute illness * PRBC per protocol * follow trend of H/H Will continue to follow. Subjective Date/time seen: 03/14/25 12:03 Interval history: Follow-up for acute kidney injury/acute renal failure on chronic kidney disease. Renal function/creatinine appears to be doing better by trend of labs on admission; no real significant change in lower extremity swelling/edema in association with LE wounds at this time; no acute distress voiced when seen. Exam Narrative: General: large and WD/WN male in NAD Heart: normal S1 and S2; no rub Lungs: clear to auscultation Abdomen: soft, nontender, nondistended, positive bowel sounds Extremities: no cyanosis or clubbing; bilateral LE edema (L > R) Skin: LE wounds noted Objective Data Vital Signs Vital Signs: Vital Signs Temp Pulse Resp BP Pulse Ox O2 Del Method 03/14/25 12:00 98.5 F 76 18 108/58 L 96 03/14/25 08:48 79 03/14/25 05:22 98.3 F 78 18 116/64 95 03/13/25 23:20 16 Autopap 03/13/25 21:51 97.3 F L 80 18 120/60 97 03/13/25 21:50 80 03/13/25 20:55 80 18 03/13/25 20:00 80 16 97 Autopap Intake/Output Intake/Output: Intake & Output 03/11/25 03/12/25 03/13/25 03/14/25 23:59 23:59 23:59 23:59 Intake Total 2840 5967.5 2130 Output Total 950 1650 650 Balance 1890 4317.5 1480 Meds/Results Medications: Active Medications Generic Name Dose Route Start Last Admin Trade Name Freq PRN Reason Stop Dose Admin Acetaminophen 650 mg 03/12/25 13:56 Acetaminophen 325 Mg Tablet PO Q4H PRN Mild Pain (1-3) or Fever Albuterol 2 puff 03/12/25 21:34 Albuterol Sulfate (*Sp) Aerosol 1 Puff INHALATION Q4H PRN Wheezing Alprazolam 1 mg 03/12/25 21:34 Alprazolam (*Crx) 0.5 Mg Tablet PO BID PRN Anxiety Apixaban 5 mg 03/12/25 21:35 03/13/25 21:50 Apixaban 5 Mg Tablet PO 5 mg Q12HR MEENU Administration Carvedilol 6.25 mg 03/12/25 21:40 03/14/25 08:48 Carvedilol 6.25 Mg Tablet PO 6.25 mg Q12HR MEENU Administration Diltiazem HCl 360 mg 03/13/25 09:00 03/14/25 08:47 Diltiazem Hcl Cd 180 Mg Cap.24hr PO 360 mg QAM MEENU Administration Furosemide 40 mg 03/13/25 09:00 03/14/25 08:48 Furosemide 40 Mg Tablet PO 40 mg DAILY MEENU Administration Piperacillin Sod/Tazobactam 50 mls @ 100 mls/hr 03/13/25 18:00 03/14/25 11:47 Sod 3.375 gm/ Sodium Chloride IVPB 100 mls/hr Q6H MEENU Administration Vancomycin HCl 2,000 mg in 500 mls @ 250 mls/hr 03/14/25 16:00 03/14/25 16:02 Vancomycin 2,000 Mg/Ns 500 Ml IVPB 03/14/25 17:59 250 mls/hr ONCE ONE Administration Magnesium Oxide 400 mg 03/13/25 09:00 03/14/25 08:48 Magnesium Oxide 400 Mg Tablet PO 400 mg BID MEENU Administration Montelukast Sodium 10 mg 03/13/25 09:00 03/14/25 08:47 Montelukast Sodium 10 Mg Tablet PO 10 mg DAILY MEENU Administration Dofetilide 250 Mcg 250 mcg 03/12/25 12:00 03/14/25 08:51 Capsule PO 04/11/25 11:59 250 mcg Q12HR MEENU Administration Sacubitril/Valsartan 1 tab 03/12/25 21:45 03/14/25 08:48 Sacubitril/Valsartan 24-26 Mg Tablet PO 1 tab Q12HR MEENU Administration Fluticasone/Salmeterol 2 puff 03/13/25 08:00 03/14/25 08:09 Fluticasone/Salmeterol 230-21 Mcg Inhaler 1 Puff INHALATION 2 puff Q12HRT MEENU Administration Umeclidinium [place] 1 puff 03/13/25 08:00 03/14/25 08:08 Umeclidinium [place] 62.5 Mcg Ellipta INHALATION 1 puff DAILYRT MEENU Administration Vancomycin HCl 1 each 03/12/25 11:36 Vancomycin For Acute Kidney Injury IVPB PRN PRN Vancomycin Protocol Radiology Results: ITS Impressions Chest X-Ray 03/12/25 11:37 IMPRESSION: Mild pulmonary edema. Superimposed infection cannot be excluded. Ankle Brachial Index 03/12/25 16:18 IMPRESSION: 1. 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 2. No significant arterial occlusive disease in the right lower limb with normal right CALIN and TBI Venous Doppler Study 03/12/25 16:19 IMPRESSION: Negative bilateral lower extremity venous US. No deep vein thrombosis. Renal Ultrasound 03/12/25 16:24 IMPRESSION: 1. Normal kidneys without hydronephrosis. Labs Labs: Laboratory Tests 03/14/25 06:58 WBC 11. 3 H Hgb 9.3 L Hct 29.6 L Plt Count 168 Sodium 135 L Potassium 3.2 L Chloride 106 Carbon Dioxide 21 L Anion Gap 8 BUN 23 H Creatinine 1.93 H Estim Creat Clear Calc 66 Estimated GFR 37 L Glucose 97 Calcium 8.4 Microbiology 03/12/25 12:06 Blood Organism Identification - Preliminary 03/12/25 12:06 Blood Organism Identification - Preliminary 03/12/25 14:11 Leg Left Gram Stain - Final
[2025-03-14 14:53] LABS: Anion Gap 8 mmol/L (4-12); Blood Urea Nitrogen 23 mg/dL (9-20); Calcium 8.5 mg/dL (8.4-10.2); Carbon Dioxide 22 mmol/L (22-30); Chloride 106 mmol/L (98-107); Estimated CRCL calculation 74 ml/min; Estimated Glomerular Filt Rate 42; Glucose 130 mg/dL (65-110); Potassium 3.4 mmol/L (3.4-5.0); Sodium 136 mmol/L (137-145)
[2025-03-14] MEDS: VANCOMYCIN 2,000 MG/NS 500 ML 2,000 MG/500 ML BAG 250 MG IVPB (16:02)
[2025-03-15] VITALS (7 sets, daily range): BP systolic 103–120; BP diastolic 57–61; PULSE 73–80; RESP 16–18; TEMP 36.2–37.7; O2SAT 93–100
[2025-03-15] MEDS: PIPERACILLIN/TAZOBACTAM SOD 3.375 GM in SODIUM CHLORIDE 0.9% IV 50 ML 100 ML IVPB ×3 (00:46→12:39)
[2025-03-15 06:23] LABS: Hematocrit 30.2 % (42.0-52.0); Hemoglobin 9.7 g/dL (14.0-18.0); Immature Granulocyte Percent A 1.1 % (0-0.5); Lymphocytes Absolute Auto 0.78 K/mm3 (0.9-3.2); Mean Corpuscular HGB Conc 32.1 g/dl (32-36); Mean Corpuscular Hemoglobin 30.1 pg (26-34); Mean Corpuscular Volume 93.8 fl (80-100); Nucleated Red Blood Cells Absolute Auto 0.000 K/mm3 (0.0-0.012); Nucleated Red Blood Cells Perc 0.0 % (0.0-0.2); Platelet Count Result 230 k/mm3 (150-375); Red Blood Count 3.22 M/mm3 (4.6-6.20); White Blood Count 8.0 K/mm3 (4.5-10.0)
[2025-03-15 06:39] LABS: Albumin Level 2.6 g/dL (3.5-5.1); Anion Gap 7 mmol/L (4-12); Blood Urea Nitrogen 22 mg/dL (9-20); Calcium 8.6 mg/dL (8.4-10.2); Carbon Dioxide 22 mmol/L (22-30); Chloride 107 mmol/L (98-107); Estimated CRCL calculation 76 ml/min; Estimated Glomerular Filt Rate 44; Glucose 105 mg/dL (65-110); Potassium 3.5 mmol/L (3.4-5.0); Sodium 136 mmol/L (137-145)
--- NOTE | 2025-03-15 07:00 | P.PNIM_ITS ---
Progress Note: A&P Assessment and Plan (1) Cellulitis of left leg: Code(s): L03.116 - Cellulitis of left lower limb Status: Acute Assessment and Plan: Hx of venous stasis ulcerations of the bilateral lower extremities with cellulitis. Treated and resolved for 2 weeks, returned and have been present for the past 2 months. Has now developed pain and erythema specifically to the left lower extremity, however on exam both lower extremities appear erythematous and infected with purulent drainage. - started on Zosyn and Vancomycin on 03/12, change to levaquin/doxy per culture results. Grew pseudomonas and MRSA - wound consulted, continue local wound care. - staph screen. Change Vanc to doxy pending cultures since unclear improvement - wound culture of the LLE pending, growing GNB's - check Dopplers of BLE and ABIs - analgesics prn - CRP elevated, trend & check ESR - blood cultures obtained in ED on 03/12--NGTD (2) Venous stasis ulcers of both lower extremities: Code(s): I83.019 - Varicose veins of right lower extremity with ulcer of unspecified site; I83.029 - Varicose veins of left lower extremity with ulcer of unspecified site; L97.919 - Non-pressure chronic ulcer of unspecified part of right lower leg with unspecified severity; L97.929 - Non-pressure chronic ulcer of unspecified part of left lower leg with unspecified severity Status: Acute Assessment and Plan: - patient reports hx intermittent edema to Bilateral lower legs, often associated with shortness of breath - checking US of BLE and ABIs, see above (3) Elevated glucose: Code(s): R73.09 - Other abnormal glucose Status: Acute Assessment and Plan: - no prior hx of DM, initial glucose 152 - HgbA1C 5.1 (4) Renal insufficiency: Code(s): N28.9 - Disorder of kidney and ureter, unspecified Status: Acute Assessment and Plan: - no known hx of CKD or renal insufficiency, no previous lab work available for comparison. Per patient most recent creatinine 1.6, was referred to a laundry operator finishing but has not had appt yet, was scheduled for this week which he has had to cancel due to admission. - creatinine 2.29, BUN 32, GFR 30 - renal ultrasound normal kidneys, no hydonephrosis - check CK, urine sodium, protein/creatinine, Urine potassium, urine creatinine, and UA - nephrology consulted, appreciate recommendations --risk factors for CKD including HTN, cardiomyopathy. HgbA1c was normal Based off his previously reported level, CLAUDIA superimposed on CKD. Newly dark urine. Large blood on UA - monitor I&Os --Bladder scan --Creatinine improving (5) Atrial fibrillation: Qualifiers: Atrial fibrillation type: unspecified Qualified Code(s): I48.91 - Unspecified atrial fibrillation Code(s): I48.91 - Unspecified atrial fibrillation Status: Chronic Assessment and Plan: - continue home medication: Eliquis, diltiazem, dofetillide (6) HTN (hypertension): Qualifiers: Hypertension type: primary hypertension Qualified Code(s): I10 - Essential (primary) hypertension Code(s): I10 - Essential (primary) hypertension Status: Chronic Assessment and Plan: - chronic, currently 111/60 - continue home medications: Entresto, Lasix, Coreg - monitor (7) Anemia: Code(s): D64.9 - Anemia, unspecified Status: Acute Assessment and Plan: Blood count trending down, 11.2>9.2. Has microscopic hematuria on UA but not visibly bloody --Follow CBC, type & screen --Monitor for black/bloody stools --Hold eliquis (8) CHF (congestive heart failure): Code(s): I50.9 - Heart failure, unspecified Status: Acute Assessment and Plan: hx CHF has a pacemaker --Echo with LVEF 50% (improved from prior) --Recent viral symptoms. Check COVID/Flu/RSV. Viral illness could cause exacerbation of heart failure. BNP only slightly elevated, 661 --Continue Lasix 40mg daily --Chest x-ray showed mild vascular congestion. Stopped fluids 03/13 TTE 1. The left ventricle is mildly dilated with borderline normal systolic function. The left ventricular ejection fraction is visually estimated to be 50%. 2. The right ventricle is normal in size and systolic function. 3. This was a technically difficult study with poorly visualized acoustic windows. Plan Diet: heart healthy GI Prophylaxis: NA DVT Prophylaxis: Eliquis IV fluids: 1L -> stop Lines/Tubes: peripheral IV Code Status: full code Time Spent With Patient Time: 58 minutes Subjective Date/time seen: 03/15/25 07:00 Interval history: WBC improving Culture grew pseudomonas and MRSA Still has significant edema and erythema to left leg. Asked him to elevate his left leg as much as possible overnight Monitoring on antibiotics overngiht and discharge soon if improving. If not, would need further imaging Review of Systems Review of Systems: All systems reviewed & are unremarkable except as noted in HPI and below Exam Narrative: General - Awake and alert. No acute distress Eyes - PERRLA, EOM intact ENT - No thrush, No erythema Neck - No noticeable or palpable swelling Lymph Nodes - No lymphadenopathy Cardiovascular - RRR no m/r/g, no JVD Lungs: Clear to auscultation, No wheezing, use of accessory muscles, rare basilar crackles . Skin - Skin warm and dry, no wounds or rashes Abdomen - Normal bowel sounds, abdomen soft and nontender Extremities - Bilateral LE edema, L>R. No cyanosis or clubbing. Erythema and signicant edema to left leg, slightly improved Musculoskeletal - 5/5 strength, normal range of motion, no swollen or erythematous joints. Neurological ? Alert and oriented x 3, CN 2-12 grossly intact. Psych: Normal mood and affect Const: General: comfortable and no acute distress Other: , male, chronically ill-appearing, obese body habitus HENMT: Face/Nose/Sinus: Normal nares present Mouth: Yes moist mucous membranes Other: poor dentition Eyes: General: appearance normal, both eyes and all related structures Sclera: sclerae normal Pupils: Equal, round and reactive pupils present EOM: EOMs intact bilaterally Resp: Effort & Inspection: normal respiratory effort Auscultation: clear to auscultation bilaterally Cardio: Rate: regular rate Rhythm: regular rhythm Other: S1-S2 present without murmur, rub, ectopy GI: Other: Abdomen soft, nondistended, nontender. Normoactive bowel sounds in all quadrants. Skin: Other: Erythematous bilateral lower extremities, left worse than right. BLE are edematous, pitting, flaking, shiny, with bilateral anterior ulcerations that are relatively shallow. largest right ulceration approximately 9 x 13 cm. Largest left ulceration 11 x 7 cm approximately. Malodorous with purulent to clear drainage. Neuro: Cranial nerves: Yes Equal, round and reactive pupils present Speech: normal speech Motor exam (neuro): 5/5 motor strength present throughout Sensory Exam: normal sensation Other: A&O x4 Extrem: Other: significant peripheral edema Psych: Mental Status: mental status grossly normal Affect: normal affect Other: good insight and judgment, pleasant Objective Data Vital Signs Vital Signs: Vital Signs - 24 hr 03/14/25 08:00 03/14/25 08:48 03/14/25 14:00 Temperature 98.5 F Pulse Rate 79 76 Respiratory Rate 18 Blood Pressure 108/58 L Pulse Oximetry 96 Oxygen Delivery Room Air 03/14/25 20:00 03/14/25 20:40 03/14/25 20:53 Temperature 99.0 F Pulse Rate 78 79 78 Respiratory Rate 16 20 16 Blood Pressure 121/74 Pulse Oximetry 99 99 Oxygen Delivery Room Air 03/14/25 20:59 03/14/25 21:19 03/15/25 04:19 Temperature 99.8 F H Pulse Rate 82 78 73 Respiratory Rate 16 16 Blood Pressure 103/57 L Pulse Oximetry 93 Oxygen Delivery Intake/Output Intake/Output: Intake & Output 03/12/25 03/13/25 03/14/25 03/15/25 23:59 23:59 23:59 23:59 Intake Total 2840 5967.5 3970 700 Output Total 950 1650 1500 800 Balance 1890 4317.5 2470 -100 Meds/Results Medications: Active Medications Generic Name Dose Route Start Last Admin Trade Name Freq PRN Reason Stop Dose Admin Acetaminophen 650 mg 03/12/25 13:56 Acetaminophen 325 Mg Tablet PO Q4H PRN Mild Pain (1-3) or Fever Albuterol 2 puff 03/12/25 21:34 Albuterol Sulfate (*Sp) Aerosol 1 Puff INHALATION Q4H PRN Wheezing Alprazolam 1 mg 03/12/25 21:34 Alprazolam (*Crx) 0.5 Mg Tablet PO BID PRN Anxiety Apixaban 5 mg 03/12/25 21:35 03/13/25 21:50 Apixaban 5 Mg Tablet PO 5 mg Q12HR MEENU Administration Carvedilol 6.25 mg 03/12/25 21:40 03/14/25 21:19 Carvedilol 6.25 Mg Tablet PO 6.25 mg Q12HR MEENU Administration Diltiazem HCl 360 mg 03/13/25 09:00 03/14/25 08:47 Diltiazem Hcl Cd 180 Mg Cap.24hr PO 360 mg QAM MEENU Administration Doxycycline Hyclate 100 mg 03/15/25 09:00 Doxycycline Hyclate 100 Mg Tablet PO Q12HR MEENU Furosemide 40 mg 03/13/25 09:00 03/14/25 08:48 Furosemide 40 Mg Tablet PO 40 mg DAILY MEENU Administration Piperacillin Sod/Tazobactam 50 mls @ 100 mls/hr 03/13/25 18:00 03/15/25 06:05 Sod 3.375 gm/ Sodium Chloride IVPB 100 mls/hr Q6H MEENU Administration Magnesium Oxide 400 mg 03/15/25 12:00 Magnesium Oxide 400 Mg Tablet PO BID@1200,1700 MEENU Montelukast Sodium 10 mg 03/13/25 09:00 03/14/25 08:47 Montelukast Sodium 10 Mg Tablet PO 10 mg DAILY MEENU Administration Dofetilide 250 Mcg 250 mcg 03/12/25 12:00 03/14/25 21:19 Capsule PO 04/11/25 11:59 250 mcg Q12HR MEENU Administration Sacubitril/Valsartan 1 tab 03/12/25 21:45 03/14/25 21:19 Sacubitril/Valsartan 24-26 Mg Tablet PO 1 tab Q12HR MEENU Administration Fluticasone/Salmeterol 2 puff 03/13/25 08:00 03/14/25 20:53 Fluticasone/Salmeterol 230-21 Mcg Inhaler 1 Puff INHALATION 2 puff Q12HRT MEENU Administration Umeclidinium [place] 1 puff 03/13/25 08:00 03/14/25 08:08 Umeclidinium [place] 62.5 Mcg Ellipta INHALATION 1 puff DAILYRT MEENU Administration Radiology Results: ITS Impressions Chest X-Ray 03/12/25 11:37 IMPRESSION: Mild pulmonary edema. Superimposed infection cannot be excluded. Ankle Brachial Index 03/12/25 16:18 IMPRESSION: 1. 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 2. No significant arterial occlusive disease in the right lower limb with normal right CALIN and TBI Venous Doppler Study 03/12/25 16:19 IMPRESSION: Negative bilateral lower extremity venous US. No deep vein thrombosis. Renal Ultrasound 03/12/25 16:24 IMPRESSION: 1. Normal kidneys without hydronephrosis. Labs Labs: Laboratory Results - last 24 hr 03/14/25 03/14/25 03/14/25 06:58 06:59 06:59 WBC 11.3 H RBC 3.21 L Hgb 9.3 L Hct 29.6 L MCV 92.2 MCH 29.0 MCHC 31.4 L RDW 15.8 H Plt Count 168 MPV 10.7 H Immature Gran % (Auto) 0.5 Neut % (Auto) 80.0 H Lymph % (Auto) 7.4 L [place] % (Auto) 11.6 H Eos % (Auto) 0.3 Baso % (Auto) 0.2 Lymph # (Auto) 0.83 L [place] # (Auto) 1.3 H Eos # (Auto) 0.0 Baso # (Auto) 0.0 Abs Immat Gran (auto) 0.06 H Absolute Neuts (auto) 9.0 H Absolute Nucleated RBC 0.000 Nucleated RBC % 0.0 Sodium 135 L Potassium 3.2 L Chloride 106 Carbon Dioxide 21 L Anion Gap 8 BUN 23 H Creatinine 1.93 H Estim Creat Clear Calc 66 Estimated GFR 37 L Glucose 97 Calcium 8.4 Phosphorus Albumin TSH (Reflex) 0.903 Random Vancomycin CARLOS ALBERTO Screen Cancelled CARLOS ALBERTO Titer Cancelled CARLOS ALBERTO Titer 2 Cancelled CARLOS ALBERTO Titer 3 Cancelled CARLOS ALBERTO Pattern Cancelled CARLOS ALBERTO Pattern 2 Cancelled CAROLS ALBERTO Pattern 3 Cancelled CARLOS ALBERTO Comment Cancelled Glomerular Base Memb Ab Cancelled Complement C3 76 L Complement C4 41.5 [place]/Lambda Ratio Cancelled Free [place] Light Chains Cancelled Cancelled Free Lambda Light Chain Cancelled Miscellaneous Test Cancelled Blood Type O Positive Antibody Screen Negative 03/14/25 03/15/25 14:06 05:15 WBC 8.0 RBC 3.22 L Hgb 9.7 L Hct 30.2 L MCV 93.8 MCH 30.1 MCHC 32.1 RDW 15.7 H Plt Count 230 MPV 10.9 H Immature Gran % (Auto) 1.1 H Neut % (Auto) 75.8 H Lymph % (Auto) 9.7 L [place] % (Auto) 12.5 H Eos % (Auto) 0.7 Baso % (Auto) 0.2 Lymph # (Auto) 0.78 L [place] # (Auto) 1.0 H Eos # (Auto) 0.1 Baso # (Auto) 0.0 Abs Immat Gran (auto) 0.09 H Absolute Neuts (auto) 6.1 Absolute Nucleated RBC 0.000 Nucleated RBC % 0.0 Sodium 136 L 136 L Potassium 3.4 3.5 Chloride 106 107 Carbon Dioxide 22 22 Anion Gap 8 7 BUN 23 H 22 H Creatinine 1.72 H 1.67 H Estim Creat Clear Calc 74 76 Estimated GFR 42 L 44 L Glucose 130 H 105 Calcium 8.5 8.6 Phosphorus 2.7 Albumin 2.6 L TSH (Reflex) Random Vancomycin 8.8 L CARLOS ALBERTO Screen CARLOS ALBERTO Titer CARLOS ALBERTO Titer 2 CARLOS ALBERTO Titer 3 CARLOS ALBERTO Pattern CARLOS ALBERTO Pattern 2 CARLOS ALBERTO Pattern 3 CARLOS ALBERTO Comment Glomerular Base Memb Ab Complement C3 Complement C4 [place]/Lambda Ratio Free [place] Light Chains Free Lambda Light Chain Miscellaneous Test Blood Type Antibody Screen Quality VTE Prophylaxis VTE prophylaxis: mechanical ordered (SCD's not feasible with LE wound) and pharmacologic ordered (on hold for drop in blood count. ) Hospitalist MIPS Advance Care Plan I have confirmed that the patient's Advanced Care Plan is present, code status is documented, or surrogate decision maker is listed in patient medical record.: Yes Medication Reconciliation I have utilized all available resources to obtain, update and review the patie nts current medications (includes all prescriptions, OTC, herbals, cannabis, and nutritional supplements).: Yes
[2025-03-15] MEDS: DOXYCYCLINE HYCLATE 100 MG TABLET PO ×2 (08:59→20:48)
[2025-03-15] MEDS: dilTIAZem HCL CD 180 MG CAP.24HR 360 MG PO (08:59)
[2025-03-15] MEDS: FUROSEMIDE 40 MG TABLET PO (09:00)
[2025-03-15] MEDS: SACUBITRIL/VALSARTAN 24-26 MG TABLET 1 TAB PO ×2 (09:00→20:48)
[2025-03-15] MEDS: MONTELUKAST SODIUM 10 MG TABLET PO (09:00)
[2025-03-15] MEDS: UMECLIDINIUM BROMIDE 62.5 MCG ELLIPTA 1 PUFF INHALATION (10:00)
[2025-03-15] MEDS: FLUTICASONE/SALMETEROL 230-21 MCG INHALER 1 PUFF 2 PUFF INHALATION ×2 (10:00→20:33)
--- NOTE | 2025-03-15 10:01 | P.PNNP_ITS ---
Progress Note: A&P Assessment and Plan (1) Acute kidney injury: Code(s): N17.9 - Acute kidney failure, unspecified Status: Acute Assessment and Plan: * slow improvement noted * as noted by admission labs * multifactorial etiology: * acute infection (bilateral lower extremity cellulitis +/- UTI) * relative hypotension * medications (Entresto + diuretics) * other(?) * evaluation to date noted: * renal ultrasound normal * urine electrolyte prerenal (however, this might be secondary to his cardiomyopathy rather than volume depletion) * mild proteinuria * UA with protein and blood (?infection) * CPK okay * serologies pending * follow trend of repeat labs and UOP (2) Stage 3b chronic kidney disease: Code(s): N18.32 - Chronic kidney disease, stage 3b Status: Chronic Assessment and Plan: * baseline creatinine seems to run ~ 1.5 - 1.6mg/dl since 2023 * last outpatient creatinine - 1.65mg/dl on 10/30/24 * presumably due to hypertension, vascular disease/CHF/cardiomyopathy, and obesity (3) Cellulitis of left leg: Code(s): L03.116 - Cellulitis of left lower limb Status: Acute Assessment and Plan: * extensive history of venous stasis ulcerations on BLEs * now complicated by acute infection/cellulitis * on antibiotics * follow culture data * wound carefollowing * pain control (4) CHF (congestive heart failure): Code(s): I50.9 - Heart failure, unspecified Status: Acute Assessment and Plan: * known history * continue GMDT as tolerated * Echo (03/13) results noted: * left ventricular ejection fraction is visually estimated to be 50%. * right ventricle is normal in size and systolic function * technically difficult study with poorly visualized acoustic windows * pacemaker in place * on diuretics (5) Urinary tract infection: Code(s): N39.0 - Urinary tract infection, site not specified Status: Acute Assessment and Plan: * suggested by admission UA * follow urine culture * on antibiotics already for #3 (6) Atrial fibrillation: Qualifiers: Atrial fibrillation type: unspecified Qualified Code(s): I48.91 - Unspecified atrial fibrillation Code(s): I48.91 - Unspecified atrial fibrillation Status: Chronic Assessment and Plan: * rate control strategy * on anticoagulation (7) HTN (hypertension): Qualifiers: Hypertension type: primary hypertension Qualified Code(s): I10 - Essential (primary) hypertension Code(s): I10 - Essential (primary) hypertension Status: Chronic Assessment and Plan: * reasonable control * follow trend of hemodynamics (8) Anemia: Code(s): D64.9 - Anemia, unspecified Status: Acute Assessment and Plan: * noted on admission * likely related to CLAUDIA, CKD, and acute illness * PRBC per protocol * follow trend of H/H Will continue to follow. L Subjective Date/time seen: 03/15/25 10:01 Interval history: Follow-up for acute kidney injury/acute renal failure on chronic kidney disease. Renal function/creatinine continue to improve by trend of labs despite ongoing use of oral diuretic therpy and entresto; pain in lower extremities seems controlled with current medications; no acute issues/events overnight or earlier this morning. Exam 2 Narrative: General: large and WD/WN male in NAD Heart: normal S1 and S2; no rub Lungs: clear to auscultation Abdomen: soft, nontender, nondistended, positive bowel sounds Extremities: no cyanosis or clubbing; bilateral LE edema (L > R) Skin: LE wounds present Objective Data Vital Signs Vital Signs: Vital Signs Temp Pulse Resp BP Pulse Ox O2 Del Method 03/15/25 09:00 73 03/15/25 04:19 99.8 F H 73 16 103/57 L 93 03/14/25 21:19 78 03/14/25 20:59 82 16 03/14/25 20:53 78 16 03/14/25 20:40 99.0 F 79 20 121/74 99 03/14/25 20:00 78 16 99 Room Air Intake/Output Intake/Output: Intake & Output 03/12/25 03/13/25 03/14/25 03/15/25 23:59 23:59 23:59 23:59 Intake Total 2840 5967.5 3970 1050 Output Total 950 1650 1500 2000 Balance 1890 4317.5 2470 -950 Meds/Results Medications: Active Medications Generic Name Dose Route Start Last Admin Trade Name Freq PRN Reason Stop Dose Admin Acetaminophen 650 mg 03/12/25 13:56 Acetaminophen 325 Mg Tablet PO Q4H PRN Mild Pain (1-3) or Fever Albuterol 2 puff 03/12/25 21:34 Albuterol Sulfate (*Sp) Aerosol 1 Puff INHALATION Q4H PRN Wheezing Alprazolam 1 mg 03/12/25 21:34 Alprazolam (*Crx) 0.5 Mg Tablet PO BID PRN Anxiety Apixaban 5 mg 03/12/25 21:35 03/13/25 21:50 Apixaban 5 Mg Tablet PO 5 mg Q12HR MEENU Administration Carvedilol 6.25 mg 03/12/25 21:40 03/15/25 09:00 Carvedilol 6.25 Mg Tablet PO 6.25 mg Q12HR MEENU Administration Diltiazem HCl 360 mg 03/13/25 09:00 03/15/25 08:59 Diltiazem Hcl Cd 180 Mg Cap.24hr PO 360 mg QAM MEENU Administration Doxycycline Hyclate 100 mg 03/15/25 09:00 03/15/25 08:59 Doxycycline Hyclate 100 Mg Tablet PO 03/21/25 21:01 100 mg Q12HR MEENU Administration Furosemide 40 mg 03/13/25 09:00 03/15/25 09:00 Furosemide 40 Mg Tablet PO 40 mg DAILY MEENU Administration Levofloxacin 750 mg 03/15/25 19:00 Levofloxacin 750 Mg Tablet PO 03/21/25 21:01 QHS MEENU Magnesium Oxide 400 mg 03/15/25 12:00 03/15/25 12:42 Magnesium Oxide 400 Mg Tablet PO 400 mg BID@1200,1700 MEENU Administration Montelukast Sodium 10 mg 03/13/25 09:00 03/15/25 09:00 Montelukast Sodium 10 Mg Tablet PO 10 mg DAILY MEENU Administration Dofetilide 250 Mcg 250 mcg 03/12/25 12:00 03/15/25 08:59 Capsule PO 04/11/25 11:59 250 mcg Q12HR MEENU Administration Sacubitril/Valsartan 1 tab 03/12/25 21:45 03/15/25 09:00 Sacubitril/Valsartan 24-26 Mg Tablet PO 1 tab Q12HR MEENU Administration Fluticasone/Salmeterol 2 puff 03/13/25 08:00 03/15/25 10:00 Fluticasone/Salmeterol 230-21 Mcg Inhaler 1 Puff INHALATION 2 puff Q12HRT MEENU Administration Umeclidinium [place] 1 puff 03/13/25 08:00 03/15/25 10:00 Umeclidinium [place] 62.5 Mcg Ellipta INHALATION 1 puff DAILYRT MEENU Administration Radiology Results: ITS Impressions Chest X-Ray 03/12/25 11:37 IMPRESSION: Mild pulmonary edema. Superimposed infection cannot be excluded. Ankle Brachial Index 03/12/25 16:18 IMPRESSION: 1. 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 2. No significant arterial occlusive disease in the right lower limb with normal right CALIN and TBI Venous Doppler Study 03/12/25 16:19 IMPRESSION: Negative bilateral lower extremity venous US. No deep vein thrombosis. Renal Ultrasound 03/12/25 16:24 IMPRESSION: 1. Normal kidneys without hydronephrosis. Labs Labs: Laboratory Tests 03/15/25 05:15 03/15/25 05:15 Calcium 8.6 Phosphorus 2.7 Free Lambda Light Chain Microbiology 03/12/25 14:11 Leg Left Aerobic Culture - Final Methicillin Resis Staph Aureus Pseudomonas aeruginosa 03/12/25 14:11 Leg Left Gram Stain - Final 03/12/25 22:09 Urine Clean Catch Urine Culture - Final 03/12/25 12:06 Blood Organism Identification - Preliminary 03/12/25 12:06 Blood Organism Identification - Preliminary
[2025-03-15] MEDS: MAGNESIUM OXIDE 400 MG TABLET PO ×2 (12:42→18:34)
[2025-03-15 14:08] LABS: Free Lambda Lt Chains, Serum 54.3 mg/L (5.7-26.3); Kappa/Lambda Ratio, Serum 0.94 (0.26-1.65)
[2025-03-15 18:08] LABS: ANA by IFA Rfx Titer/Pattern Negative (.)
[2025-03-16] VITALS (9 sets, daily range): BP systolic 104–116; BP diastolic 59–65; PULSE 75–79; RESP 16–18; TEMP 36.3–36.7; O2SAT 94–98
[2025-03-16 06:37] LABS: Hematocrit 30.0 % (42.0-52.0); Hemoglobin 9.4 g/dL (14.0-18.0); Immature Granulocyte Percent A 0.6 % (0-0.5); Lymphocytes Absolute Auto 0.89 K/mm3 (0.9-3.2); Mean Corpuscular HGB Conc 31.3 g/dl (32-36); Mean Corpuscular Hemoglobin 28.8 pg (26-34); Mean Corpuscular Volume 92.0 fl (80-100); Nucleated Red Blood Cells Absolute Auto 0.000 K/mm3 (0.0-0.012); Nucleated Red Blood Cells Perc 0.0 % (0.0-0.2); Platelet Count Result 283 k/mm3 (150-375); Red Blood Count 3.26 M/mm3 (4.6-6.20); White Blood Count 6.6 K/mm3 (4.5-10.0)
[2025-03-16 06:54] LABS: Albumin Level 2.6 g/dL (3.5-5.1); Anion Gap 7 mmol/L (4-12); Blood Urea Nitrogen 20 mg/dL (9-20); Calcium 8.5 mg/dL (8.4-10.2); Carbon Dioxide 24 mmol/L (22-30); Chloride 105 mmol/L (98-107); Estimated CRCL calculation 86 ml/min; Estimated Glomerular Filt Rate 51; Glucose 103 mg/dL (65-110); Magnesium 2.0 mg/dL (1.6-2.3); Potassium 3.4 mmol/L (3.4-5.0); Sodium 136 mmol/L (137-145)
[2025-03-16 07:12] LABS: CRP 22.7 mg/dL (<1.0)
[2025-03-16] MEDS: FLUTICASONE/SALMETEROL 230-21 MCG INHALER 1 PUFF 2 PUFF INHALATION ×2 (07:56→19:31)
[2025-03-16] MEDS: UMECLIDINIUM BROMIDE 62.5 MCG ELLIPTA 1 PUFF INHALATION (07:56)
[2025-03-16] MEDS: dilTIAZem HCL CD 180 MG CAP.24HR 360 MG PO (10:18)
[2025-03-16] MEDS: MONTELUKAST SODIUM 10 MG TABLET PO (10:20)
[2025-03-16] MEDS: SACUBITRIL/VALSARTAN 24-26 MG TABLET 1 TAB PO ×2 (10:20→20:41)
[2025-03-16] MEDS: DOXYCYCLINE HYCLATE 100 MG TABLET PO ×2 (10:21→20:41)
[2025-03-16] MEDS: FUROSEMIDE 40 MG TABLET PO (10:21)
--- NOTE | 2025-03-16 10:45 | P.PNNP_ITS ---
Progress Note: A&P Assessment and Plan (1) Acute kidney injury: Code(s): N17.9 - Acute kidney failure, unspecified Status: Acute Assessment and Plan: * improved if not better than baseline * as noted by admission labs * multifactorial etiology: * acute infection (bilateral lower extremity cellulitis +/- UTI) * relative hypotension * medications (Entresto + diuretics) * other(?) * evaluation to date noted: * renal ultrasound normal * urine electrolyte prerenal (however, this might be secondary to his cardiomyopathy rather than volume depletion) * mild proteinuria * UA with protein and blood (?infection) * CPK okay * serologies still pending * follow trend of repeat labs and UOP (2) Stage 3b chronic kidney disease: Code(s): N18.32 - Chronic kidney disease, stage 3b Status: Chronic Assessment and Plan: * baseline creatinine seems to run ~ 1.5 - 1.6mg/dl since 2023 * last outpatient creatinine - 1.65mg/dl on 10/30/24 * presumably due to hypertension, vascular disease/CHF/cardiomyopathy, and obesity (3) Cellulitis of left leg: Code(s): L03.116 - Cellulitis of left lower limb Status: Acute Assessment and Plan: * extensive history of venous stasis ulcerations on BLEs * now complicated by acute infection/cellulitis * on antibiotics * follow culture data - wounds with MRSA and Pseudomonas * wound care following * pain control (4) CHF (congestive heart failure): Code(s): I50.9 - Heart failure, unspecified Status: Acute Assessment and Plan: * known history * continue GMDT as tolerated * Echo (03/13) results noted: * left ventricular ejection fraction is visually estimated to be 50%. * right ventricle is normal in size and systolic function * technically difficult study with poorly visualized acoustic windows * pacemaker in place * on diuretics (5) Urinary tract infection: Code(s): N39.0 - Urinary tract infection, site not specified Status: Acute Assessment and Plan: * suggested by admission UA * follow urine culture - negative to date * on antibiotics already for #3 (6) Atrial fibrillation: Qualifiers: Atrial fibrillation type: unspecified Qualified Code(s): I48.91 - Unspecified atrial fibrillation Code(s): I48.91 - Unspecified atrial fibrillation Status: Chronic Assessment and Plan: * rate control strategy * on anticoagulation (7) HTN (hypertension): Qualifiers: Hypertension type: primary hypertension Qualified Code(s): I10 - Essential (primary) hypertension Code(s): I10 - Essential (primary) hypertension Status: Chronic Assessment and Plan: * reasonable control * follow trend of hemodynamics (8) Anemia: Code(s): D64.9 - Anemia, unspecified Status: Acute Assessment and Plan: * noted on admission * likely related to CLAUDIA, CKD, and acute illness * PRBC per protocol * follow trend of H/H Not much else to add -- will continue to follow from a distance. L Subjective Date/time seen: 03/16/25 10:45 Interval history: Follow-up for acute kidney injury/acute renal failure on chronic kidney disease. Renal function/creatinine continues to improve (if not better than baseline) with supportive therapy; no apparent distress voiced at the time of my visit; swelling/edema/erythema in LEs seems to be getting better with current therapy/interventions. Exam 2 Narrative: General: large and WD/WN male in NAD Heart: normal S1 and S2; no rub Lungs: clear to auscultation Abdomen: soft, nontender, nondistended, positive bowel sounds Extremities: no cyanosis or clubbing; bilateral LE edema (L > R) Skin: LE wounds apparent Objective Data Vital Signs Vital Signs: Vital Signs Temp Pulse Resp BP Pulse Ox O2 Del Method 03/16/25 10:18 98.0 F 78 18 104/62 95 03/16/25 07:57 94 Room Air 03/16/25 04:49 97.8 F 79 18 115/65 98 03/15/25 20:47 78 03/15/25 20:34 78 16 03/15/25 20:07 97.1 F L 80 18 120/61 100 03/15/25 20:00 78 16 100 CPAP Intake/Output Intake/Output: Intake & Output 03/13/25 03/14/25 03/15/25 03/16/25 23:59 23:59 23:59 23:59 Intake Total 5967.5 3970 1230 1180 Output Total 1650 1500 2000 1400 Balance 4317.5 8182 -040 -784 Meds/Results Medications: Active Medications Generic Name Dose Route Start Last Admin Trade Name Freq PRN Reason Stop Dose Admin Acetaminophen 650 mg 03/12/25 13:56 Acetaminophen 325 Mg Tablet PO Q4H PRN Mild Pain (1-3) or Fever Albuterol 2 puff 03/12/25 21:34 Albuterol Sulfate (*Sp) Aerosol 1 Puff INHALATION Q4H PRN Wheezing Alprazolam 1 mg 03/12/25 21:34 Alprazolam (*Crx) 0.5 Mg Tablet PO BID PRN Anxiety Apixaban 5 mg 03/12/25 21:35 03/13/25 21:50 Apixaban 5 Mg Tablet PO 5 mg Q12HR MEENU Administration Carvedilol 6.25 mg 03/12/25 21:40 03/16/25 10:18 Carvedilol 6.25 Mg Tablet PO 6.25 mg Q12HR MEENU Administration Diltiazem HCl 360 mg 03/13/25 09:00 03/16/25 10:18 Diltiazem Hcl Cd 180 Mg Cap.24hr PO 360 mg QAM MEENU Administration Doxycycline Hyclate 100 mg 03/15/25 09:00 03/16/25 10:21 Doxycycline Hyclate 100 Mg Tablet PO 03/21/25 21:01 100 mg Q12HR MEENU Administration Furosemide 40 mg 03/13/25 09:00 03/16/25 10:21 Furosemide 40 Mg Tablet PO 40 mg DAILY MEENU Administration Levofloxacin 750 mg 03/15/25 19:00 03/15/25 18:34 Levofloxacin 750 Mg Tablet PO 03/21/25 21:01 750 mg QHS MEENU Administration Magnesium Oxide 400 mg 03/15/25 12:00 03/16/25 12:02 Magnesium Oxide 400 Mg Tablet PO 400 mg BID@1200,1700 MEENU Administration Montelukast Sodium 10 mg 03/13/25 09:00 03/16/25 10:20 Montelukast Sodium 10 Mg Tablet PO 10 mg DAILY MEENU Administration Dofetilide 250 Mcg 250 mcg 03/12/25 12:00 03/16/25 10:20 Capsule PO 04/11/25 11:59 250 mcg Q12HR MEENU Administration Sacubitril/Valsartan 1 tab 03/12/25 21:45 03/16/25 10:20 Sacubitril/Valsartan 24-26 Mg Tablet PO 1 tab Q12HR MEENU Administration Fluticasone/Salmeterol 2 puff 03/13/25 08:00 03/16/25 07:56 Fluticasone/Salmeterol 230-21 Mcg Inhaler 1 Puff INHALATION 2 puff Q12HRT MEENU Administration Umeclidinium [place] 1 puff 03/13/25 08:00 03/16/25 07:56 Umeclidinium [place] 62.5 Mcg Ellipta INHALATION 1 puff DAILYRT MEENU Administration Radiology Results: ITS Impressions Chest X-Ray 03/12/25 11:37 IMPRESSION: Mild pulmonary edema. Superimposed infection cannot be excluded. Ankle Brachial Index 03/12/25 16:18 IMPRESSION: 1. 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 2. No significant arterial occlusive disease in the right lower limb with normal right CALIN and TBI Venous Doppler Study 03/12/25 16:19 IMPRESSION: Negative bilateral lower extremity venous US. No deep vein thrombosis. Renal Ultrasound 03/12/25 16:24 IMPRESSION: 1. Normal kidneys without hydronephrosis. Labs Labs: Laboratory Tests 03/16/25 05:31 03/16/25 05:31 Calcium 8.5 Phosphorus 2.9 Magnesium 2.0 C-Reactive Protein 22.7 H Albumin 2.6 L Microbiology 03/12/25 12:06 Blood Blood Culture - Preliminary 03/12/25 12:06 Blood Blood Culture - Preliminary 03/12/25 14:11 Leg Left Aerobic Culture - Final Methicillin Resis Staph Aureus Pseudomonas aeruginosa 03/12/25 14:11 Leg Left Gram Stain - Final
[2025-03-16] MEDS: MAGNESIUM OXIDE 400 MG TABLET PO ×2 (12:02→17:21)
--- NOTE | 2025-03-16 16:01 | PM.IMPN ---
Progress Note: A&P Assessment and Plan (1) Cellulitis of left leg: Code(s): L03.116 - Cellulitis of left lower limb Status: Acute Assessment and Plan: Hx of venous stasis ulcerations of the bilateral lower extremities with cellulitis. Treated and resolved for 2 weeks, returned and have been present for the past 2 months. Has now developed pain and erythema specifically to the left lower extremity, however on exam both lower extremities appear erythematous and infected with purulent drainage. Started empiric Vancomycin 03/12 wound culture of the LLE growing pseudomonas and MRSA Methicillin Resis Staph Aureus Pseudomonas aeruginosa 1. Methicillin Resis Staph Aureus M.I.C. RX --------- --- * Vancomycin <=0.5 S * Ciprofloxacin >=8 R * Clindamycin <=0.25 S * Levofloxacin >=8 R * Linezolid =2 S * Erythromycin <=0.25 S * Gentamicin <=0.5 S * Oxacillin >=4 R * Penicillin >=0.5 R * Rifampin <=0.5 S * Tetracycline <=1 S * Trimethoprim/Sulfa <=10 S S = Susceptible; I = Intermediate; R = Resistant P = Positive; N = Negative MICS are expressed in micrograms per mL 2. Pseudomonas aeruginosa M.I.C. RX --------- --- * Ceftazidime =2 S * Ceftolozane/Tazobactam =1 S * Ciprofloxacin =0.5 S * Levofloxacin =1 S * Meropenem =0.5 S * Piperacillin/Tazobactam =8 S * Tobramycin <=1 S * Ceftazidime/Avibactam =2 S 03/12 CALIN of BLE showed arterial occlusive disease to LLE 1. 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 2. No significant arterial occlusive disease in the right lower limb with normal right CALIN and TBI - started on Zosyn and Vancomycin on 03/12, change to levaquin/doxy per culture results. Grew pseudomonas and MRSA. Slowly improving but still has significant edema (left leg about twice the size of the right leg) with yellow drainage - wound consulted, continue local wound care. - analgesics prn - CRP elevated, trend & check ESR - blood cultures obtained in ED on 03/12--NGTD (2) Venous stasis ulcers of both lower extremities: Code(s): I83.019 - Varicose veins of right lower extremity with ulcer of unspecified site; I83.029 - Varicose veins of left lower extremity with ulcer of unspecified site; L97.919 - Non-pressure chronic ulcer of unspecified part of right lower leg with unspecified severity; L97.929 - Non-pressure chronic ulcer of unspecified part of left lower leg with unspecified severity Status: Acute Assessment and Plan: - patient reports hx intermittent edema to Bilateral lower legs, often associated with shortness of breath - checking US of BLE and ABIs, see above (3) Elevated glucose: Code(s): R73.09 - Other abnormal glucose Status: Acute Assessment and Plan: - no prior hx of DM, initial glucose 152 - HgbA1C 5.1 (4) Renal insufficiency: Code(s): N28.9 - Disorder of kidney and ureter, unspecified Status: Acute Assessment and Plan: - no known hx of CKD or renal insufficiency, no previous lab work available for comparison. Per patient most recent creatinine 1.6, was referred to a principal statistical scientist but has not had appt yet, was scheduled for this week which he has had to cancel due to admission. - creatinine 2.29, BUN 32, GFR 30 - renal ultrasound normal kidneys, no hydonephrosis - check CK, urine sodium, protein/creatinine, Urine potassium, urine creatinine, and UA - nephrology consulted, appreciate recommendations --risk factors for CKD including HTN, cardiomyopathy. HgbA1c was normal Based off his previously reported level, CLAUDIA superimposed on CKD. Newly dark urine. Large blood on UA - monitor I&Os --Bladder scan --Creatinine improving (5) Atrial fibrillation: Qualifiers: Atrial fibrillation type: unspecified Qualified Code(s): I48.91 - Unspecified atrial fibrillation Code(s): I48.91 - Unspecified atrial fibrillation Status: Chronic Assessment and Plan: - continue home medication: Eliquis, diltiazem, dofetillide (6) HTN (hypertension): Qualifiers: Hypertension type: primary hypertension Qualified Code(s): I10 - Essential (primary) hypertension Code(s): I10 - Essential (primary) hypertension Status: Chronic Assessment and Plan: - chronic, currently 111/60 - continue home medications: Entresto, Lasix, Coreg - monitor (7) Anemia: Code(s): D64.9 - Anemia, unspecified Status: Acute Assessment and Plan: Blood count trending down, 11.2>9.2. Has microscopic hematuria on UA but not visibly bloody --Follow CBC, type & screen --Monitor for black/bloody stools --Hold eliquis (8) CHF (congestive heart failure): Code(s): I50.9 - Heart failure, unspecified Status: Acute Assessment and Plan: hx CHF has a pacemaker --Echo with LVEF 50% (improved from prior) --Recent viral symptoms. Check COVID/Flu/RSV. Viral illness could cause exacerbation of heart failure. BNP only slightly elevated, 661 --Continue Lasix 40mg daily --Chest x-ray showed mild vascular congestion. Stopped fluids 03/13 TTE 1. The left ventricle is mildly dilated with borderline normal systolic function. The left ventricular ejection fraction is visually estimated to be 50%. 2. The right ventricle is normal in size and systolic function. 3. This was a technically difficult study with poorly visualized acoustic windows. Plan Diet: heart healthy GI Prophylaxis: NA DVT Prophylaxis: Eliquis IV fluids: 1L -> stop Lines/Tubes: peripheral IV Code Status: full code Time Spent With Patient Time: 57 minutes Subjective Date/time seen: 03/16/25 16:01 Interval history: Renal function improving, creatinine 2.33>1.46 this morning. Left leg still very erythematous and edematous. Still painful with more yellow drainage to left leg wound. Has difficulty elevating but tried to overnight. CT left leg ordered. ESR >140, CRP about the same Review of Systems Review of Systems: All systems reviewed & are unremarkable except as noted in HPI and below Exam Narrative: General - Awake and alert. No acute distress Eyes - PERRLA, EOM intact ENT - No thrush, No erythema Neck - No noticeable or palpable swelling Lymph Nodes - No lymphadenopathy Cardiovascular - RRR no m/r/g, no JVD Lungs: Clear to auscultation, No wheezing, use of accessory muscles, rare basilar crackles . Skin - Skin warm and dry, no wounds or rashes Abdomen - Normal bowel sounds, abdomen soft and nontender Extremities - Bilateral LE edema, L>R. No cyanosis or clubbing. Erythema and significant edema to left leg, slightly improved Musculoskeletal - 5/5 strength, normal range of motion, no swollen or erythematous joints. Neurological ? Alert and oriented x 3, CN 2-12 grossly intact. Psych: Normal mood and affect Objective Data Vital Signs Vital Signs: Vital Signs - 24 hr 03/15/25 20:00 03/15/25 20:07 03/15/25 20:34 Temperature 97.1 F L Pulse Rate 78 80 78 Respiratory Rate 16 18 16 Blood Pressure 120/61 Pulse Oximetry 100 100 Oxygen Delivery CPAP 03/15/25 20:47 03/16/25 04:49 03/16/25 07:57 Temperature 97.8 F Pulse Rate 78 79 Respiratory Rate 18 Blood Pressure 115/65 Pulse Oximetry 98 94 Oxygen Delivery Room Air 03/16/25 10:18 03/16/25 14:00 Temperature 98.0 F Pulse Rate 79 78 Respiratory Rate 18 Blood Pressure 104/62 Pulse Oximetry 95 Oxygen Delivery Intake/Output Intake/Output: Intake & Output 03/13/25 03/14/25 03/15/25 03/16/25 23:59 23:59 23:59 23:59 Intake Total 5967.5 3970 1230 1180 Output Total 1650 1500 2000 1400 Balance 4317.5 8543 -145 -898 Meds/Results Medications: Active Medications Generic Name Dose Route Start Last Admin Trade Name Freq PRN Reason Stop Dose Admin Acetaminophen 650 mg 03/12/25 13:56 Acetaminophen 325 Mg Tablet PO Q4H PRN Mild Pain (1-3) or Fever Albuterol 2 puff 03/12/25 21:34 Albuterol Sulfate (*Sp) Aerosol 1 Puff INHALATION Q4H PRN Wheezing Alprazolam 1 mg 03/12/25 21:34 Alprazolam (*Crx) 0.5 Mg Tablet PO BID PRN Anxiety Apixaban 5 mg 03/12/25 21:35 03/13/25 21:50 Apixaban 5 Mg Tablet PO 5 mg Q12HR MEENU Administration Carvedilol 6.25 mg 03/12/25 21:40 03/16/25 10:18 Carvedilol 6.25 Mg Tablet PO 6.25 mg Q12HR MEENU Administration Diltiazem HCl 360 mg 03/13/25 09:00 03/16/25 10:18 Diltiazem Hcl Cd 180 Mg Cap.24hr PO 360 mg QAM MEENU Administration Doxycycline Hyclate 100 mg 03/15/25 09:00 03/16/25 10:21 Doxycycline Hyclate 100 Mg Tablet PO 03/21/25 21:01 100 mg Q12HR MEENU Administration Furosemide 40 mg 03/13/25 09:00 03/16/25 10:21 Furosemide 40 Mg Tablet PO 40 mg DAILY MEENU Administration Levofloxacin 750 mg 03/15/25 19:00 03/15/25 18:34 Levofloxacin 750 Mg Tablet PO 03/21/25 21:01 750 mg QHS MEENU Administration Magnesium Oxide 400 mg 03/15/25 12:00 03/16/25 12:02 Magnesium Oxide 400 Mg Tablet PO 400 mg BID@1200,1700 MEENU Administration Montelukast Sodium 10 mg 03/13/25 09:00 03/16/25 10:20 Montelukast Sodium 10 Mg Tablet PO 10 mg DAILY MEENU Administration Dofetilide 250 Mcg 250 mcg 03/12/25 12:00 03/16/25 10:20 Capsule PO 04/11/25 11:59 250 mcg Q12HR MEENU Administration Sacubitril/Valsartan 1 tab 03/12/25 21:45 03/16/25 10:20 Sacubitril/Valsartan 24-26 Mg Tablet PO 1 tab Q12HR MEENU Administration Fluticasone/Salmeterol 2 puff 03/13/25 08:00 03/16/25 07:56 Fluticasone/Salmeterol 230-21 Mcg Inhaler 1 Puff INHALATION 2 puff Q12HRT MEENU Administration Umeclidinium Reardan 1 puff 03/13/25 08:00 03/16/25 07:56 Umeclidinium Reardan 62.5 Mcg Ellipta INHALATION 1 puff DAILYRT MEENU Administration Radiology Results: ITS Impressions Chest X-Ray 03/12/25 11:37 IMPRESSION: Mild pulmonary edema. Superimposed infection cannot be excluded. Ankle Brachial Index 03/12/25 16:18 IMPRESSION: 1. 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 2. No significant arterial occlusive disease in the right lower limb with normal right CALIN and TBI Venous Doppler Study 03/12/25 16:19 IMPRESSION: Negative bilateral lower extremity venous US. No deep vein thrombosis. Renal Ultrasound 03/12/25 16:24 IMPRESSION: 1. Normal kidneys without hydronephrosis. Labs Labs: Laboratory Results - last 24 hr 03/13/25 03/14/25 03/14/25 16:21 06:44 06:59 WBC RBC Hgb Hct MCV MCH MCHC RDW Plt Count MPV Immature Gran % (Auto) Neut % (Auto) Lymph % (Auto) [place] % (Auto) Eos % (Auto) Baso % (Auto) Lymph # (Auto) [place] # (Auto) Eos # (Auto) Baso # (Auto) Abs Immat Gran (auto) Absolute Neuts (auto) Absolute Nucleated RBC Nucleated RBC % ESR Sodium Potassium Chloride Carbon Dioxide Anion Gap BUN Creatinine Estim Creat Clear Calc Estimated GFR Glucose Calcium Phosphorus Magnesium C-Reactive Protein Albumin CARLOS ALBERTO Screen Negative c-ANCA Antibody <1:20 Atypical p-ANCA <1:20 p-ANCA Antibody <1:20 Miscellaneous Test Comment 03/16/25 05:31 WBC 6.6 RBC 3.26 L Hgb 9.4 L Hct 30.0 L MCV 92.0 MCH 28.8 MCHC 31.3 L RDW 15.8 H Plt Count 283 MPV 10.6 H Immature Gran % (Auto) 0.6 H Neut % (Auto) 70.5 Lymph % (Auto) 13.5 L [place] % (Auto) 13.5 H Eos % (Auto) 1.4 Baso % (Auto) 0.5 Lymph # (Auto) 0.89 L [place] # (Auto) 0.9 H Eos # (Auto) 0.1 Baso # (Auto) 0.0 Abs Immat Gran (auto) 0.04 H Absolute Neuts (auto) 4.7 Absolute Nucleated RBC 0.000 Nucleated RBC % 0.0 ESR > 140 H Sodium 136 L Potassium 3.4 Chloride 105 Carbon Dioxide 24 Anion Gap 7 BUN 20 Creatinine 1.46 H Estim Creat Clear Calc 86 Estimated GFR 51 L Glucose 103 Calcium 8.5 Phosphorus 2.9 Magnesium 2.0 C-Reactive Protein 22.7 H Albumin 2.6 L CARLOS ALBERTO Screen c-ANCA Antibody Atypical p-ANCA p-ANCA Antibody Miscellaneous Test Quality VTE Prophylaxis VTE prophylaxis: mechanical ordered (SCD's not feasible with LE wound) and pharmacologic ordered (on hold for drop in blood count. ) Hospitalist [facility] Advance Care Plan I have confirmed that the patient's Advanced Care Plan is present, code status is documented, or surrogate decision maker is listed in patient medical record.: Yes Medication Reconciliation I have utilized all available resources to obtain, update and review the patients current medications (includes all prescriptions, OTC, herbals, cannabis, and nutritional supplements).: Yes
[2025-03-16] MEDS: ACETAMINOPHEN 325 MG TABLET 650 MG PO (17:27)
[2025-03-17 04:27] VITALS: BP 135/72; PULSE 76; RESP 18; TEMP 36.7; O2SAT 96
[2025-03-17 06:34] LABS: Hematocrit 29.9 % (42.0-52.0); Hemoglobin 9.3 g/dL (14.0-18.0); Immature Granulocyte Percent A 0.8 % (0-0.5); Lymphocytes Absolute Auto 0.85 K/mm3 (0.9-3.2); Mean Corpuscular HGB Conc 31.1 g/dl (32-36); Mean Corpuscular Hemoglobin 28.9 pg (26-34); Mean Corpuscular Volume 92.9 fl (80-100); Nucleated Red Blood Cells Absolute Auto 0.000 K/mm3 (0.0-0.012); Nucleated Red Blood Cells Perc 0.0 % (0.0-0.2); Platelet Count Result 294 k/mm3 (150-375); Red Blood Count 3.22 M/mm3 (4.6-6.20); White Blood Count 7.4 K/mm3 (4.5-10.0)
[2025-03-17 06:57] LABS: Albumin Level 2.7 g/dL (3.5-5.1); Anion Gap 8 mmol/L (4-12); Blood Urea Nitrogen 19 mg/dL (9-20); Calcium 8.7 mg/dL (8.4-10.2); Carbon Dioxide 26 mmol/L (22-30); Chloride 103 mmol/L (98-107); Estimated CRCL calculation 89 ml/min; Estimated Glomerular Filt Rate 53; Glucose 103 mg/dL (65-110); Potassium 3.3 mmol/L (3.4-5.0); Sodium 137 mmol/L (137-145)
[2025-03-17] MEDS: FLUTICASONE/SALMETEROL 230-21 MCG INHALER 1 PUFF 2 PUFF INHALATION (07:45)
[2025-03-17] MEDS: UMECLIDINIUM BROMIDE 62.5 MCG ELLIPTA 1 PUFF INHALATION (07:46)
[2025-03-17 08:00] VITALS: O2SAT 96
[2025-03-17 08:10] VITALS: O2SAT 96
[2025-03-17 08:21] VITALS: PULSE 68
[2025-03-17] MEDS: DOXYCYCLINE HYCLATE 100 MG TABLET PO (08:22)
[2025-03-17] MEDS: SACUBITRIL/VALSARTAN 24-26 MG TABLET 1 TAB PO (08:22)
[2025-03-17] MEDS: MONTELUKAST SODIUM 10 MG TABLET PO (08:22)
[2025-03-17] MEDS: FUROSEMIDE 40 MG TABLET PO (08:22)
[2025-03-17] MEDS: dilTIAZem HCL CD 180 MG CAP.24HR 360 MG PO (08:22)
[2025-03-17] MEDS: POTASSIUM CHLORIDE 20 MEQ ER TABLET PO (09:30)
--- NOTE | 2025-03-17 11:52 | P.DS_ITS ---
DS: Admitting Diagnosis Discharge Date 03/17/25 Admitting Diagnosis Cellulitis Venous stasis DS: Discharge Diagnosis Discharge Diagnosis (1) Cellulitis of left leg: Code(s): L03.116 - Cellulitis of left lower limb Status: Acute (2) Venous stasis ulcers of both lower extremities: Code(s): I83.019 - Varicose veins of right lower extremity with ulcer of unspecified site; I83.029 - Varicose veins of left lower extremity with ulcer of unspecified site; L97.919 - Non-pressure chronic ulcer of unspecified part of right lower leg with unspecified severity; L97.929 - Non-pressure chronic ulcer of unspecified part of left lower leg with unspecified severity Status: Acute (3) Acute heart failure with reduced ejection fraction (HFrEF): Code(s): I50.21 - Acute systolic (congestive) heart failure Status: Acute DS: Summary Hospital Course Reason for hospitalization: 49-year-old male with a history of chronic bilateral lower extremity wounds, atrial fibrillation on anticoagulation, hypertension, and heart failure presented with progressive bilateral lower extremity swelling and recurrence of lower extremity wounds. Copied from [facility] 03/12: 49 y/o M with PMH of BLE wounds, Afib, and HTN presents here with bilateral lower extremity swelling and wounds. The patient presents here with bilateral lower extremity swelling and bilateral lower extremity wounds on 03/12. He reports he was a previous history of wounds to his bilateral lower extremities starting in 2011 which were treated in 2022. He reports wound care while he was at rehab after a significant medical episode and resolved for 2 years. He reports they returned around 2-2.5 months ago. He developed scabs and the ulcerations/wounds returned. Seeking care now as his left lower extremity has become more swollen, painful, and erythematous over the last 2 days. He denies associated fever, chills, body aches, nausea, vomiting, or diarrhea. He has a history of AFib on chronic anticoagulation - Eliquis. He denies any previous known history of arterial insufficiency, venous insufficiency, diabetes, or kidney disease. Patient however was told to follow- up with a policy issue clerk - at his PCP visit he believes his creatinine was 1.6. Initial VS at presentation: 98.5? F, HR 81, R 18, 124/65, and 97% on RA. ED workup showed: WBC 11.3, hemoglobin 11.2, potassium 3.1, creatinine 2.29 and GFR 30, glucose 152, lactic 1.3, CRP 24. CXR showed mild pulmonary edema, superimposed infection cannot be excluded. Hospital Course: Admission Vitals and Initial Workup: * T 98.5?F, HR 81, BP 124/65, RR 18, SpO2 97% RA * Labs: WBC 11.3, Hgb 11.2, K 3.1, Cr 2.29, GFR 30, Glucose 152, Lactic acid 1.3, CRP 24 * CXR: Mild pulmonary edema, superimposed infection not excluded Hospital Course: On admission, the patient was found to have significant bilateral lower extremity edema and ulcerations, with the left leg notably more erythematous, swollen, and draining purulent material. Empiric IV vancomycin and piperacillin- tazobactam were initiated. Wound cultures from the left leg grew MRSA and Pseudomonas aeruginosa. Antibiotics were subsequently tailored to cover both organisms per sensitivities (levofloxacin and doxycycline). Wound care was consulted and local wound management continued throughout hospitalization. 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 Renal function was impaired on admission (creatinine 2.29, GFR 30), with a history of prior mild elevation. Renal ultrasound was unremarkable. Nephrology was con sulted; workup for acute on chronic kidney disease was initiated, and renal function improved during the stay (creatinine down to 1.46 at discharge). The patient?s atrial fibrillation was managed with continuation of home medications (Eliquis, diltiazem, dofetilide). However, due to a drop in hemoglobin (11.2 to 9.2) and new microscopic hematuria, Eliquis was held and anemia was monitored. No overt GI bleeding was observed. Heart failure was managed with continuation of home diuretics (Lasix), and IV fluids were discontinued. Echocardiogram showed mildly dilated LV with borderline normal systolic function (EF 50%). BNP was only mildly elevated. Chest x-ray showed mild vascular congestion. Glucose was mildly elevated on admission (152), but HgbA1c was normal (5.1), and no further hyperglycemia was noted. The patient?s wounds and cellulitis improved with targeted antibiotics and wound care, though significant edema and drainage persisted at discharge. He remained afebrile and hemodynamically stable throughout hospitalization. Consultations: * Wound care * Nephrology * Vascular studies Imaging: * Renal ultrasound * CALIN/TBI studies * Echocardiogram Discharge Condition: The patient is stable for discharge. Left lower extremity remains edematous with some residual erythema and drainage, but overall improved. Renal function improved. No evidence of active bleeding. Ambulating with assistance. Follow-Up: PCP, Wound care clinic, Nephrology, Cardiology * Labs: CBC, renal function, CRP/ESR as outpatient Status at Discharge Cognitive/behavioral status at discharge: A&OX4 Time Spent with Patient Time attestation: Total time spent providing and/or coordinating discharge services:54 minutes Exam Narrative: General - Awake and alert. No acute distress Eyes - PERRLA, EOM intact ENT - No thrush, No erythema Neck - No noticeable or palpable swelling Lymph Nodes - No lymphadenopathy Cardiovascular - RRR no m/r/g, no JVD Lungs: Clear to auscultation, No wheezing, use of accessory muscles, rare basilar crackles . Skin - Skin warm and dry, no wounds or rashes Abdomen - Normal bowel sounds, abdomen soft and nontender Extremities - Bilateral LE edema, L>R. No cyanosis or clubbing. Erythema and significant edema to left leg, slightly improved Musculoskeletal - 5/5 strength, normal range of motion, no swollen or erythematous joints. Neurological ? Alert and oriented x 3, CN 2-12 grossly intact. Psych: Normal mood and affect DS: Data Data Completed and Pending Labs on day of discharge: Labs from last 24 hours 03/17/25 03/17/25 03/16/25 18:00 05:46 18:00 WBC 7.4 RBC 3.22 L Hgb 9.3 L Hct 29.9 L MCV 92.9 MCH 28.9 MCHC 31.1 L RDW 15.7 H Plt Count 294 MPV 10.1 Immature Gran % (Auto) 0.8 H Neut % (Auto) 72.1 Lymph % (Auto) 11.5 L [place] % (Auto) 13.1 H Eos % (Auto) 2.2 Baso % (Auto) 0.3 Lymph # (Auto) 0.85 L [place] # (Auto) 1.0 H Eos # (Auto) 0.2 Baso # (Auto) 0.0 Abs Immat Gran (auto) 0.06 H Absolute Neuts (auto) 5.4 Absolute Nucleated RBC 0.000 Nucleated RBC % 0.0 Sodium 137 Potassium 3.3 L Chloride 103 Carbon Dioxide 26 Anion Gap 8 BUN 19 Creatinine 1.41 H Estim Creat Clear Calc 89 Estimated GFR 53 L Glucose 103 Calcium 8.7 Phosphorus 3.3 Albumin 2.7 L Ur Random Creatinine Cancelled U Random Total Protein Cancelled Protein/Creatinin Ratio Cancelled Urine Total Protein Pending Urine Albumin (PEP) Pending Urine Albumin Cancelled U [id number] Pending Cancelled U [id number] Pending Cancelled U Beta Globulin Pending Cancelled U Gamma Globulin Pending Cancelled U Random M-Jose (%) Pending U Abnormal Prot Band 1 Cancelled U Abnormal Prot Band 2 Cancelled U Abnormal Prot Band 3 Cancelled Urine PEP Interpret Cancelled Miscellaneous Test Cancelled Preliminary micro results at discharge 03/12/25 12:06 Blood Culture - Preliminary Blood 03/12/25 12:06 Blood Culture - Preliminary Blood Discharge Plan Discharge Attending physician on discharge: Misa Cruz Consulting providers: Joselin Grover; Benton Clemente; Sophia Bonds; Avinash Martins; Fidel Everett; Abiel Christine; Alyssa,Matty Owusu Discharging Clinician: Misa Cruz Anticipated Discharge Date/Time: 03/17/25 11:01 Patient Disposition: Home Activity: may shower Diet: regular Discharge Instructions: Call your PCP on Tuesday to discuss follow up in 1-2 weeks. Continue to elevate your left leg and compression wraps as able. Labs in 1-2 weeks to follow up your kidney function and monitor infection Follow up with vascular surgery outpatient. Can consider [facility]--[place] [phone] or discuss with your PCP Follow up with renal in the clinic in 1-2 months Avoid nephrotoxins (no ibuprofen or naproxen) Acetaminophen is ok for pain Clean lower legs daily with soap and water and apply wound gel, cover with gauze Patient Instructions: Antibiotic Form, Apixaban (By mouth) Patient Language: Palestinian Stand Alone Forms: General Discharge Information Follow-up/Referrals: Viridiana,NATASHA Shah [Primary Care Provider] - 2 Weeks Joselin Grover MD [Physician] - 4 Weeks Discharge Medications: New doxycycline hyclate 100 mg Tablet 100 mg PO Q12HR 10 Days Qty: 20 0RF levofloxacin 750 mg tablet 750 mg PO .q48 Qty: 5 0RF Rx Instructions: Every 48 hours starting Sunday 03/18 through 03/27 Continued carvedilol [Coreg] 6.25 mg tablet 6.25 mg PO BID albuterol sulfate 90 mcg/actuation HFA aerosol inhaler 90 mcg INHALATION PRN PRN (Reason: Wheezing) Eliquis 5 mg tablet 5 mg PO Q12H Entresto 24-26 mg tablet 24 - 26 tablet PO BID furosemide 40 mg tablet 40 mg PO DAILY montelukast 10 mg tablet 10 mg PO DAILY Patient Comments: takes at 1700 alprazolam 1 mg Tablet 1 mg PO BID PRN (Reason: Anxiety) diltiazem HCl 360 mg capsule,extended release 24 hr 360 mg PO DAILY dofetilide 250 mcg capsule 250 mcg PO Q12H fluticasone propion-salmeterol [Advair Diskus] 500-50 mcg/dose blister with device 1 inh INHALATION Q12H magnesium oxide 400 mg (241.3 mg magnesium) tablet 400 mg PO BID Spiriva Respimat 1.25 mcg/actuation mist 2 puff INHALATION DAILY Date of admission: 03/13/25 10:25 Primary Care Provider: ViridianaAlyssa Admitting Provider: Hema Sapp Attending physician on admission: Misa Cruz Condition: Stable
[2025-03-17] MEDS: MAGNESIUM OXIDE 400 MG TABLET PO (12:44)
[2025-03-17 14:00] VITALS: BP 97/67; PULSE 78; RESP 16; TEMP 36.8; O2SAT 96
--- NOTE | 2025-03-18 07:12 | P.CDI_ITS ---
CDI Query Clarification Request 1)Please specify type and acuity of heart failure if known. * Acute * Chronic * Acute on Chronic * Unknown * Systolic * Diastolic * Combined Systolic and Diastolic * Unknown 2)Please clarify the status of the patient's anemia, if known. Anemia has been documented, please specify type of anemia if known: * Acute blood loss anemia * Chronic blood loss anemia * Anemia of chronic disease (CKD,neoplasm, other) * Aplastic anemia * Dilutional anemia * Iron Deficiency anemia * Pernicious anemia * Nutritional anemia (e.g., scorbutic anemia) * Other anemia * Unknown/unable to determine The chart reflects the following: (7) Anemia: Code(s): D64.9 - Anemia, unspecified Status: Acute Assessment and Plan: Blood count trending down, 11.2>9.2. Has microscopic hematuria on UA but not visibly bloody --Follow CBC, type & screen --Monitor for black/bloody stools --Hold eliquis (8) CHF (congestive heart failure): Code(s): I50.9 - Heart failure, unspecified Status: Acute Assessment and Plan: hx CHF has a pacemaker --Echo with LVEF 50% (improved from prior) --Recent viral symptoms. Check COVID/Flu/RSV. Viral illness could cause exacerbation of heart failure. BNP only slightly elevated, 661 --Continue Lasix 40mg daily --Chest x-ray showed mild vascular congestion. Stopped fluids 03/13 ECHO Summary 1. The left ventricle is mildly dilated with borderline normal systolic function. The left ventricular ejection fraction is visually estimated to be 50%. 2. The right ventricle is normal in size and systolic function. 3. This was a technically difficult study with poorly visualized acoustic windows. Lasix 40 mg po daily <Joie Gonzalez RN - Last Filed: 03/18/25 07:15> 1)Please specify type and acuity of heart failure if known. * Acute * Chronic * Acute on Chronic * Unknown * Systolic * Diastolic * Combined Systolic and Diastolic * Unknown 2)Please clarify the status of the patient's anemia, if known. Anemia has been documented, please specify type of anemia if known: * Acute blood loss anemia * Chronic blood loss anemia * Anemia of chronic disease (CKD,neoplasm, other) * Aplastic anemia * Dilutional anemia * Iron Deficiency anemia * Pernicious anemia * Nutritional anemia (e.g., scorbutic anemia) * Other anemia * Unknown/unable to determine The chart reflects the following: (7) Anemia: Code(s): D64.9 - Anemia, unspecified Status: Acute Assessment and Plan: Blood count trending down, 11.2>9.2. Has microscopic hematuria on UA but not visibly bloody --Follow CBC, type & screen --Monitor for black/bloody stools --Hold eliquis (8) CHF (congestive heart failure): Code(s): I50.9 - Heart failure, unspecified Status: Acute Assessment and Plan: hx CHF has a pacemaker --Echo with LVEF 50% (improved from prior) --Recent viral symptoms. Check COVID/Flu/RSV. Viral illness could cause exacerbation of heart failure. BNP only slightly elevated, 661 --Continue Lasix 40mg daily --Chest x-ray showed mild vascular congestion. Stopped fluids 03/13 ECHO Summary 1. The left ventricle is mildly dilated with borderline normal systolic function. The left ventricular ejection fraction is visually estimated to be 50%. 2. The right ventricle is normal in size and systolic function. 3. This was a technically difficult study with poorly visualized acoustic windows. Lasix 40 mg po daily <Misa Cruz APRN - Last Filed: 04/03/25 00:35> Clarified Diagnosis Clarified Diagnosis: Acute on chronic heart failure, likely systolic, LVEF 50% Anemia, likely CKD/chronic disease and possible chronic blood loss but unable to determine <Misa Cruz APRN - Last Filed: 04/03/25 00:35>
[2025-03-20 15:09] LABS: Albumin, U 11.6 % (.); Alpha-1-Globulin, U 3.3 % (.); Alpha-2-Globulin, U 21.8 % (.); Beta Globulin, U 24.3 % (.); Gamma Globulin, U 39.0 % (.)
== END 2025-03-17 14:57 | disposition home or self-care (01) | DRG 383 ==
LOC: ANHED 12:30 → ANH3MEDSUR 15:13
PROVIDERS: Internal Medicine; Internal Medicine Nephrology; Student in an Organized Health Care Education/Training Program; Admitting Provider Family Medicine; Emergency Provider Emergency Medicine; PCP Nurse Practitioner Family; Visit Provider Nurse Practitioner Acute Care
DX: L03.116 Cellulitis of left lower limb (principal); I87.8 Other specified disorders of veins; I83.018 Varicose veins of right lower extremity with ulcer other part of lower leg; I83.028 Varicose veins of left lower extremity with ulcer other part of lower leg; L97.819 Non-pressure chronic ulcer of other part of right lower leg with unspecified severity; L97.828 Non-pressure chronic ulcer of other part of left lower leg with other specified severity; B95.62 Methicillin resistant Staphylococcus aureus infection as the cause of diseases classified elsewhere; B96.5 Pseudomonas (aeruginosa) (mallei) (pseudomallei) as the cause of diseases classified elsewhere; I13.0 Hypertensive heart and chronic kidney disease with heart failure and stage 1 through stage 4 chronic kidney disease, or unspecified chronic kidney disease; I50.9 Heart failure, unspecified; N18.32 Chronic kidney disease, stage 3b; I48.91 Unspecified atrial fibrillation; Z20.822 Contact with and (suspected) exposure to COVID-19; Z79.01 Long term (current) use of anticoagulants; F41.9 Anxiety disorder, unspecified; Z95.0 Presence of cardiac pacemaker; I43 Cardiomyopathy in diseases classified elsewhere; Z87.891 Personal history of nicotine dependence; R73.09 Other abnormal glucose; N28.9 Disorder of kidney and ureter, unspecified; N17.9 Acute kidney failure, unspecified; E66.9 Obesity, unspecified; D63.1 Anemia in chronic kidney disease
CPT/HCPCS: 36415; 71046; 73700; 76775; 80048; 80053; 80069; 80202; 81001; 82550; 82570; 83036; 83520; 83605; 83690; 83735; 83880; 84133; 84156; 84166; 84300; 84443; 84484; 85025; 85610; 85652; 85730; 85999; 86037; 86038; 86140; 86160; 86364; 86850; 86900; 86901; 87040; 87070; 87075; 87081; 87086; 87205; 87637; 87641; 93005; 93922; 93970; 94640; 96365; 96366; 96368; 99213; 99285; A9270; C8929; G0463; J2543; J3373; J7030; Q9957

== ENCOUNTER 2025-05-18 14:59 | Emergency (ER) | payer OTHER, SELFPAY ==
--- NOTE | ~2025-05-18 | CT_ITS ---
EXAMINATION: CT abdomen pelvis wo cesario, 05/18/2025 16:30 CDT HISTORY: Kidney stone COMPARISON: No comparisons available. TECHNIQUE: CT scan of the abdomen and pelvis was performed without IV contrast. One or more of the following dose reduction techniques were used: automated exposure control, adjustment of the mA and/or kV according to patient size, use of iterative reconstruction technique. Unless otherwise stated, incidental findings do not require dedicated follow up imaging FINDINGS: CT abdomen: LUNG BASES: The lung bases are clear. The visualized portions of the heart and pericardium are unremarkable. LIVER: Unremarkable, liver contours intact, no lesions. SPLEEN: Unremarkable, no splenomegaly. KIDNEYS: Right Kidney: Right kidney renal calculi the largest mid pole 4 mm, no hydronephrosis. Left Kidney: Left kidney moderate hydronephrosis and hydroureter due to an obstructing left UVJ calculus measuring 4 x 5 x 5 mm. ADRENAL GLANDS: Unremarkable. PANCREAS: Mild pancreatic atrophy. GALLBLADDER/BILIARY: Cholelithiasis. STOMACH AND ESOPHAGUS: Small hiatal hernia. BOWEL/MESENTERY: Mild diverticulosis, no colitis or diverticulitis. Appendix normal. Mesentery normal. No dilated small bowel loops. ADENOPATHY/RETROPERITONEUM: No lymphadenopathy. AORTA/VASCULATURE: Normal caliber aorta. FREE FLUID OR FREE AIR: No free fluid.. CT pelvis: SOLID ORGANS/REPRODUCTIVE: Unremarkable. BLADDER: Within normal limits. OSSEOUS STRUCTURES: No acute osseous abnormality.No suspicious lesions. OVERLYING SOFT TISSUES: Small fat-containing umbilical hernia. IMPRESSION: Left-sided obstructive uropathy Reviewed, dictated and finalized at location A.
[2025-05-18 15:00] VITALS: BP 136/69; PULSE 80; RESP 18; TEMP 36.6; O2SAT 97
--- OUTSIDE RECORDS SUMMARY | 2025-05-18 15:01 | XMS_ITS | Clinical Summary ---
Author Organization [facility] Address [address] [place] [address] Phone Care Team Providers Care Transit Planning Director Name Role Phone Unavailable Primary Care Provider [...] of 3 - 19+ 3-dose series) 1993 Cologuard 2019 Colonoscopy 2019 Colorectal Cancer Screening 2019 Immunochemical Fecal Occult Blood 2019 SARS-COV-2 Immunization (1 - 2023- season) 2024 Pneumococcal Immunization (5 0+ years) (1 of 1 - PCV) 2024 Zoster Immunization (1 of 2) 2024 Influenza Immunization (#1) 2025 Respiratory Syncytial Virus (RSV) Immunization (Adult) (1 - 1-dose 75+ series) 2049 Human Papillomavirus (HPV) Immunization Aged Out No longer eligible b ased on patient's age to complete this topic Meningococcal Immunization (ACWY) Aged Out No longer eligible based on patient's age to complete this topic Rotavirus Immunization Aged Out No lo nger eligible based on patient's age to complete this topic Insurance MEDICAID [employer]
--- OUTSIDE RECORDS SUMMARY | 2025-05-18 15:01 | XMS_ITS | Clinical Summary ---
Author Organization [facility] Address [address] [place] [address] Care Team Providers Care Bioinformatics Technician Name Role Phone Unavailable Primary Care Provider Unavailabl e Source Comments [facility],non-owned Affiliates and Associated Physician Practices is amultiple site organization consisting of ambulatory clinics and hospital sitesin [place], [place], [place] and [place]. This disclosure is being madepursuant to the Care Everywhere program and may not contain all information available regarding this patient. Last updated 18.[facility] Medications * Be aware that medications may [...] 45-75) - COL ON CA SCREENING 1974 CT COLONOGRAPHY - COLON CA SCREENING 1974 FIT - COLON CA SCREENING 1974 FLEX SIG - COLON CA SCREENING 1974 LIPID TESTING 1974 HIV SCREENING 1989 HEPATITIS C SCREENING 10/18/1992 DTAP/TDAP/TD VACCINES (1 - Tdap) 1993 HEPATITIS B VACCINE (1 of 3 - 19+ 3-dose series) 1993 DEPRESSION SCREENING 09/05/2024 PNEUMOCOCCAL VACCINE 50+ (1 of 1 - PCV) 2024 ZOSTER VACCINE (1 of 2) 2024 COVID-19 VACCINE (1 - 2023-2 5 season) 2025 INFLUENZA VACCINE (#1) 2025 COLON MONITORING 12/26/2033 12/27/2023 COLONOSCOPY - COLON CA SCREENING 12/26/2033 12/27/19 24 Colorectal Cancer Screening 12/26/2033 HIB VACCINE Aged Out No longer eligi [...] patient's age to complete this topic Insurance [facility] SELF PAY NO INSURANCE Member Subscriber Plan / Payer (Ef fective for All Dates) Name:KamilahJorgeBurke Member ID:Not on file Relation to Subscriber:Not on file Name:KAMILAHBURKE Subscriber ID:Not on file Address: [address] [place], [place] [id number] Payer ID:Not on file Group ID:Not on file Type:Self Pay Address: [place], [place] [facility] SELF PAY NO INSURANCE Member Subscriber Plan / Payer (Ef fective for All Dates) Name:Burke Avila Member ID:Not on file Relation to Subscriber:Not on file Name:BURKE AVILA Subscriber ID:Not on file Address: [address] [place] [address] Payer ID:Not on file Group ID:Not on file Type:Self Pay Address: [place] [facility] SELF PAY NO INSURANCE Member Subscriber Plan / Payer (Ef fective for All Dates) Name:Burke Avila Member ID:Not on file Relation to Subscriber:Not on file Name:BURKE AVILA Subscriber ID:Not on file Address: [address] [place] [id number] Payer ID:Not on file Group ID:Not on file Type:Self Pay Address: [place], [place]
--- OUTSIDE RECORDS SUMMARY | 2025-05-18 15:01 | XMS_ITS | Clinical Summary ---
Author Organization [facility] Address [address] [place] [id number] Care Team Providers Care Laborer [address] Name Role Phone Alyssa Kemp NP Primary Care Provider [phone] Dalia Bennett MD Unavailable [phone] Allergies No known active allergies Medications Eliquis [...] (two) times a day 09/27/19 24 Active ALPRAZolam (XANAX) 1 mg tablet Take 1 tablet (1 mg total) by mouth 3 (three) times a day as needed for anxiety Active diltiazem (TIAZAC) 360 mg 24 hr capsule Take by mouth daily 02/13/20 24 Active dofetilide (TIKOSYN) 250 mcg capsule Take 1 capsule (250 mcg total) by mouth 2 (two) times a day 03/26/20 24 Active Spiriva Respimat 1.25 mcg/actuation inhaler INHALE [...] SWALLOW 60 each 5 02/28/20 25 Active montelukast (SINGULAIR) 10 mg tablet TAKE 1 TABLET(10 MG) BY MOUTH EVERY NIGHT 30 tablet 4 04/01/20 25 Active magnesium oxide (MAG-OX) 400 mg (241.3 mg elemental magnesium) tablet TAKE 1 TABLET(400 MG) BY MOUTH TWICE DAILY 30 tablet 1 05/13/20 25 Active magnesium oxide (MAG-OX) 400 mg (241.3 mg elemental magnesium) tablet Take 1 tablet (400 mg total) by mouth 2 (two) times a day 30 tablet 1 03/22/20 25 025 Discontinued Active Problems Problem Noted Date Diagnosed Date Venous insufficiency of both lower extremities 0 04/18/2025 Assessment & Plan (04/18/2025 2:44 PM CDT): Patient with chronic bilateral lower extremity perfused edema associated with calf level ulcerations. No surgical procedural intervention is indicated at this time. Patient to follow up in the office on as needed basis. I recommended patient to follow up with Wound [facility], and here to compression therapy regimen Near syncope 04/05/2025 Body aches 11/15/2024 Elevated serum creatinine 10/15/2024 Atrial fibrillation and flutter 11/17/2023 A-fib 11/04/2023 Acute left ankle pain 10/13/2023 Subacute cough 06/08/2023 Acute pain of right knee 06/08/2023 Overview (06/08/2023): tylenol for pain. rest and elevated. notify the office without improvement of symptoms. Kidney stone 04/12/2023 Morbid obesity with BMI of 45.0-49.9, adult 04/0 01/2023 Assessment & Plan (04/05/2025 1:17 PM CDT): Discussed the patient's BMI. The BMI is above average. BMI management plan is completed. BMI Follow-up includes: nutrition counseling, exercise counseling and education provided. Assessment & Plan (11/15/2024 2:39 PM CDT): Discussed the patient's BMI. The BMI is above average. BMI management plan is completed. BMI Follow-up includes: nutrition counseling, exercise counseling and education provided. Assessment & Plan (10/15/2024 11:05 AM TIRE SHOP MECHANIC): Discussed the patient's BMI. The BMI is above average. BMI management plan is completed. BMI Follow-up includes: nutrition counseling, exercise counseling and education provided. Assessment & Plan (04/12/2024 10:40 AM CDT): Discussed the patient's BMI. The BMI is above average. BMI management plan is completed. BMI Follow-up includes: nutrition counseling, exercise counseling and education provided. Assessment & Plan (10/13/2023 9:55 AM TIRE SHOP MECHANIC): Discussed the patient's BMI. The BMI is [...] Encounters Date Type Department Care Team Description 04/18/2025 2:30 PM CDT Office Visit [facility] [address] [place] [phone] Orly Barrientos PA Venous insufficiency of both lower extremities (Primary Dx); Longstanding persistent atrial fibrillation (HCC); Hypertension, essential 04/09/2025 Telephone [facility] [address] [place] [address] Alyssa Kemp NP 04/05/2025 4:30 PM CDT Office Visit [facility] [address] [place] [phone] Alyssa Kemp NP Near syncope (Primary Dx); Morbid obesity with BMI of 45.0-49.9, adult (HCC) 04/04/[address] [facility] [address] [place] [address] Alyssa Kemp NP MAINOR Questions 03/13/2025 Orders Only [facility] Health Information Management [address] [place] [address] Scanning, Provider from Last 3 Months Immunizations Immunization Administration Dates Next Due Influenza, Unspecified 10/15/2024(Deferr ed: Patient Refused),09/05/2024(Deferred: Patient Refused),10/13/2023(Deferred: Patient Refused),09/05/2023(Deferred: Patient Refused),09/05/2023(Deferred: Patient Refused),09/05/2023(Deferred: Patient Refused),09/05/2023(Deferred: Patient Refused),06/08/2023(Deferred: Patient Refused),04/12/2023(Deferred: Patient Refused),12/07/2022(Deferred: Patient Refused),10/06/2021(Deferred: Patient Refused),10/06/2021(Deferred: Patient Refused) Surgical History Surgery Date Site/Laterality Comments CARDIAC PACEMAKER PLACEMENT LITHOTRIPSY CARDIAC ELECTROPHYSIOLOGY MAPPING AND ABLATION 024 Medical History Medical History Date Comments Atrial fibrillation and flutter Asthma Kidney stone CHF (congestive heart failure) [...] drink containing alc ohol? Monthly or less 04/05/2025 Q2: How many drinks containi ng alcohol do you have on a typical day when you are drinking? 1 or 2 04/05/2025 Q3: How often do you have si x or more drinks on one occasion? Never 04/05/2025 PHQ-2 Answer Date Recorded PHQ-2 Total Score (If total score is 3 or more points, staff should administer the PHQ-9) 0 04/05/2025 PHQ-9 Answer Date Recorded PHQ-9 Total Score [...] Sign Reading Time Taken Comments Blood Pressure 161/87 04/18/2025 2:07 PM CDT Pulse 80 04/18/2025 2:07 PM CDT Temperature 36.6 C (97.9 F) 04/05/2025 1:11 PM CDT Respiratory Rate 20 11/01/2024 10:46 AM TIRE SHOP MECHANIC Oxygen Saturation 96% 04/05/2025 1:11 PM CDT Inhaled Oxygen Concentration - - Weight 158.3 kg (349 lb) 04/18/2025 2:07 PM CDT Height 180.3 cm (5' 11) 04/18/2025 2:07 PM CDT Body Mass Index 48.68 04/18/2025 2:07 PM CDT Plan of Treatment Health Maintenance [...] will receive in the future) Depression Screening 04/05/2026 04/05/2025, 11/15/2024, 10/15/2024, Additional history exists Prostate Cancer Screening-PSA 07/27/2026 07/27/2024, 03/18/2023 Colon Cancer Screening-Colonoscopy 12/26/2033 12/27/2023, 12/27/2023 Procedures Procedure Name Priority Date/Time Associated Diagnosis Comments SCAN - RADIOLOGY/IMAGING 03/12/2025 PSA SCREEN Routine 07/27/2024 Screening for prostate cancer COLONOSCOPY Routine 12/27/2023 7:27 AM CDT from Last 3 Months or Most Recently Relevant to Health Maintenance Results * SCAN - RADIOLOGY/IMAGING (03/12/2025) Anatomical Region Laterality Modality Other us Provider Scanning Edited Result - Final * PSA screen (07/27/2024) SCRIBED PSA, Serum 0.48 0.00 - 4.00 EXTERNAL LAB Blood 07/27/2024 us Alyssa Kemp NP LAB BLOOD ORDERABLES Final Re sult EXTERNAL LAB * Colonoscopy (12/27/2023 7:27 AM CDT) Anatomical Region Laterality Modality Other Historical Provider ENDOSCOPY PROCEDURES Sophie l Result from Last 3 Months or Most Recently Relevant to Health Maintenance Insurance [facility] [id number] [place] [address] Relationship Specialty Start Date End Date Alyssa Kemp NP [address] [facility] [address] [place] [address] PCP - General Internal Medicine 12/08/22 Dalia Bennett MD [address] [place] [address] Consulting Physician Cardiology 11/18/23
--- OUTSIDE RECORDS SUMMARY | 2025-05-18 15:01 | XMS_ITS | Encounter Summary ---
Author Organization [facility] Address [address] [place] [address] Care Team Providers Care Shellfish Weigher Name Role Phone Alyssa Kemp NP Primary Care Provider [phone] Dalia Bennett MD Unavailable [phone] Encounter Details Date Type Department Care Team (Late st Contact Info) Description 03/13/2025 Orders Only [facility] Health Information Management [address] [place] [address] Scanning, Provider Social History Tobacco Use Types Packs/Day Years Used Date Smoking Tobacco: Never Smokeless Tobacco: Current Chew AUDIT-C Answer Date Recorded Q1: How often [...] on file Sexual Orientation Not on file documented as of this encounter Plan of Treatment Not on file documented as of this encounter Procedures Procedure Name Priority Date/Time Associated Diagnosis Comments SCAN - RADIOLOGY/IMAGING 03/12/2025 documented in this encounter Results * SCAN - RADIOLOGY/IMAGING (03/12/2025) Anatomical Region Laterality Modality Other us Provider Scanning Edited Result - Final documented in this encounter Visit Diagnoses Not on filedocumented in this encounter Care Teams Shellfish Weigher Relationship Specialty Start Date End Date Alyssa Kemp NP [address] [facility] [address] [place] [address] PCP - General Internal Medicine 12/08/22 Dalia Bennett MD [address] [place] [address] Consulting Physician Cardiology 11/18/23 documented as of this encounter
[2025-05-18 15:35] LABS: Add Urine Microscopic? YES; Appearance Urine Clear (Clear); Glucose Urine UA Negative (Negative); Leukocyte Esterase Ur Negative LEU/UL (Negative); Nitrate Urine Negative (Negative); Non Pathogenic Casts 0-2; Specific Grav Ur 1.009 (1.001-1.035)
[2025-05-18 15:40] LABS: Alanine Aminotransferase 20 U/L (6-50); Albumin Level 4.2 g/dL (3.5-5.1); Alkaline Phosphatase 104 U/L (38-126); Anion Gap 11 mmol/L (4-12); Aspartate Amino Transferase 31 U/L (17-59); Bilirubin,Total 0.7 mg/dL (0.2-1.3); Blood Urea Nitrogen 24 mg/dL (9-20); Calcium 9.2 mg/dL (8.4-10.2); Carbon Dioxide 22 mmol/L (22-30); Chloride 105 mmol/L (98-107); Estimated CRCL calculation 85 ml/min; Estimated Glomerular Filt Rate 51; Glucose 115 mg/dL (65-110); Potassium 4.2 mmol/L (3.4-5.0); Sodium 138 mmol/L (137-145); Total Protein 8.0 g/dL (6.3-8.2)
[2025-05-18 15:48] LABS: Hematocrit 40.6 % (42.0-52.0); Hemoglobin 13.3 g/dL (14.0-18.0); Immature Granulocyte Percent A 0.5 % (0-0.5); Lymphocytes Absolute Auto 1.32 K/mm3 (0.9-3.2); Mean Corpuscular HGB Conc 32.8 g/dl (32-36); Mean Corpuscular Hemoglobin 30.6 pg (26-34); Mean Corpuscular Volume 93.3 fl (80-100); Nucleated Red Blood Cells Absolute Auto 0.000 K/mm3 (0.0-0.012); Nucleated Red Blood Cells Perc 0.0 % (0.0-0.2); Platelet Count Result 230 k/mm3 (150-375); Red Blood Count 4.35 M/mm3 (4.6-6.20); White Blood Count 10.1 K/mm3 (4.5-10.0)
--- NOTE | 2025-05-18 15:56 | ED.BACK ---
HPI - Back Pain/Injury General Chief Complaint: Back Pain/Injury Stated Complaint: LL back pain Time Seen by Provider: 05/18/25 15:53 Source: patient Mode of arrival: ambulatory Limitations: no limitations History of Present Illness HPI Narrative: PATIENT PRESENTS WITH LEFT FLANK PAIN STARTED FEW HOURS PRIOR TO ARRIVAL, HE DENIES ANY FEVER CHILLS NAUSEA VOMITING DIARRHEA CONSTIPATION, PATIENT DENIES AGGRAVATING OR RELIEVING FACTORS, HISTORY OF SIMILAR SYMPTOMS SECONDARY TO KIDNEY STONE. PATIENT DOES NOT TAKE MEDICINE AT HOME, PATIENT REPORTED THAT THE PAIN IS DULL ACHING RADIATING TO LEFT LOWER QUADRANT AND PROBABLY LEFT TESTICLE. HE DOES NOT SMOKE CIGARETTE OR USE DRUGS, DRINK OCCASIONALLY. Related Data Home Medications ?Medication ?Instructions ?Recorded ?Confirmed ?Last Taken ?Type albuterol sulfate 90 mcg/actuation 90 mcg inhalation PRN PRN Wheezing 12/14/23 05/09/25 Unknown History aerosol inhaler alprazolam 1 mg tablet 1 mg PO BID PRN Anxiety 12/14/23 05/09/25 Unknown History apixaban 5 mg tablet (Eliquis) 5 mg PO Q12H 12/14/23 05/09/25 03/12/25 History carvedilol 6.25 mg tablet (Coreg) 6.25 mg PO BID 12/14/23 05/09/25 03/12/25 History furosemide 40 mg tablet 40 mg PO DAILY 12/14/23 05/09/25 03/12/25 History montelukast 10 mg tablet 10 mg PO DAILY 12/14/23 05/09/25 03/12/25 History sacubitril 24 mg-valsartan 26 mg 24 - 26 tablet PO BID 12/14/23 05/09/25 03/05/25 History tablet (Entresto) diltiazem HCl 360 mg capsule,24 360 mg PO DAILY 03/12/25 05/09/25 03/12/25 History hr,extended release dofetilide 250 mcg capsule 250 mcg PO Q12H 03/12/25 05/09/25 03/12/25 History fluticasone 500 mcg-salmeterol 50 1 inh inhalation Q12H 03/12/25 05/09/25 03/12/25 History mcg/dose blistr powdr for inhalation (Advair Diskus) magnesium oxide 400 mg (241.3 mg 400 mg PO BID 07/04/2905/09/25 02/26/25 History magnesium) tablet tiotropium bromide 1.25 2 puff inhalation DAILY 03/12/25 05/09/25 03/12/25 History mcg/actuation mist for inhalation (Spiriva Respimat) Allergies Allergy/AdvReac Type Severity Reaction Status Date / Time No Known Allergies Allergy Verified 05/09/25 10:14 Review of Systems Review of Systems: All systems reviewed & are unremarkable except as noted in HPI and below PMFSH Past Medical History Medical History Anxiety Venous stasis ulcers of both lower extremities Kidney stones Asthma History of pacemaker HTN (hypertension) Cardiomyopathy Atrial fibrillation Colon cancer screening Family History Family History Mother Heart attack Grandparent Stomach cancer Heart attack Father Heart attack Social History Social History Smoking status: Former smoker Tobacco type: cigarettes Smokeless tobacco user: chewing tobacco Alcohol intake: current Drinks per week: 12 Substance use: never Substance use type: marijuana Other substance usage details: once or twice a year Do You Feel Safe in your Home?: Yes Lack of Transportation: No Lack of Food: Never True Current Housing: I Have Housing Concerned About Future Housing: Decline to Answer Difficulty Paying Gas/Electric Bills: Decline to Answer Difficulty Paying for Meds: Decline to Answer Currently Unemployed: Decline to Answer Education: High School Diploma/GED Difficulty w/ Childcare or Family Care: Decline to Answer Living arrangements: alone Gender identity (if verbalized by the patient): Male Spiritual care concerns: No Exam Narrative: GENERAL APPEARANCE: WELL-DEVELOPED, WELL-NOURISHED SKIN: NORMAL COLOR HEAD: NORMOCEPHALIC, NONTRAUMATIC EYES: CLEAR CONJUNCTIVA ENT: OROPHARYNX NORMAL, EARS NORMAL, NOSE NORMAL NECK: SUPPLE, NONTENDER CHEST AND RESPIRATORY: AIRWAY PATENT, NO RESPIRATORY DISTRESS, NO ACCESSORY MUSCLE USE HEART: REGULAR RATE/RHYTHM ABDOMEN: SOFT, NONTENDER, NO ORGANOMEGALY, QUIET BOWEL SOUNDS, HIP MODERATE TENDERNESS LEFT FLANK, NO BRUISES, NO SWELLING, NO RASH VASCULAR: NORMAL PERIPHERAL PULSES, NORMAL CAPILLARY REFILL. MUSCULOSKELETAL: NORMAL RANGE OF MOTION, NONTENDER BACK NEUROLOGIC: ALERT AND ORIENTED ?3, BONDING MACHINE TENDER IS NORMAL TESTED, NO GROSS MOTOR DEFICIT Course Vital Signs Vital signs: Vital Signs Temperature 36.6 C 05/18/25 15:00 Pulse Rate 80 05/18/25 15:00 Respiratory Rate 18 05/18/25 15:00 Blood Pressure 136/69 05/18/25 15:00 Pulse Oximetry 97 05/18/25 15:00 Temperature 36.6 C 05/18/25 15:00 Pulse Rate 78 05/18/25 18:24 Respiratory Rate 18 05/18/25 18:24 Blood Pressure 120/62 05/18/25 18:24 Pulse Oximetry 95 05/18/25 18:24 MDM - Back Pain/Injury MDM Narrative Medical decision making narrative: PATIENT PRESENTS WITH LEFT FLANK PAIN, VITAL SIGNS STABLE PHYSICAL EXAMINATION TENDERNESS LEFT FLANK AREA DIFFERENTIAL DIAGNOSIS INCLUDE KIDNEY STONE, PYELONEPHRITIS, CONSTIPATION, DIVERTICULITIS, MUSCULOSKELETAL BLOOD WORKUP TODAY INCLUDES CBC, CMP SHOWED WBC 10.0, BUN 24, CREATININE 1.4, OTHERWISE WITHIN NORMAL LIMIT URINALYSIS SHOWED 1+ BLOOD OTHERWISE NO EVIDENCE OF INFECTION CT ABDOMEN AND PELVIS WITHOUT CONTRAST SHOWED LEFT KIDNEY MODERATE HYDRONEPHROSIS WITH HYDROURETER DUE TO AN OBSTRUCTING LEFT UVJ CALCULUS MEASURING 4 X 5 X 5 SHARAN Lab Data 05/18/25 15:22 05/18/25 15:22 Labs: Lab Results 05/18/25 05/18/25 Range/Units 15:16 15:22 WBC 10.1 H (4.5-10.0) K/mm3 RBC 4.35 L (4.6-6.20) M/mm3 Hgb 13.3 L D (14.0-18.0) g/dL Hct 40.6 L (42.0-52.0) % MCV 93.3 (80-100) fl MCH 30.6 (26-34) pg MCHC 32.8 (32-36) g/dl RDW 16.0 H (11.5-14.5) % Plt Count 230 (150-375) k/mm3 MPV 10.5 H (7.4-10.4) fl Immature Gran % (Auto) 0.5 (0-0.5) % Neut % (Auto) 72.1 (45.5-73.1) % Lymph % (Auto) 13.0 L (18.3-44.2) % [place] % (Auto) 11.7 H (2.6-8.5) % Eos % (Auto) 2.2 (0-4.4) % Baso % (Auto) 0.5 (0.2-1.2) % Lymph # (Auto) 1.32 (0.9-3.2) K/mm3 [place] # (Auto) 1.2 H (0.1-0.6) K/mm3 Eos # (Auto) 0.2 (0-0.3) K/mm3 Baso # (Auto) 0.1 (0.0-0.1) K/mm3 Abs Immat Gran (auto) 0.05 H (0.00-0.031) K/mm3 Absolute Neuts (auto) 7.3 H (1.3-6.7) K/mm3 Absolute Nucleated RBC 0.000 (0.0-0.012) K/mm3 Nucleated RBC % 0.0 (0.0-0.2) % Sodium 138 (137-145) mmol/L Potassium 4.2 (3.4-5.0) mmol/L Chloride 105 (98-107) mmol/L Carbon Dioxide 22 (22-30) mmol/L Anion Gap 11 (4-12) mmol/L BUN 24 H (9-20) mg/dL Creatinine 1.46 H (0.7-1.3) mg/dL Estim Creat Clear Calc 85 ml/min Estimated GFR 51 L (59 - ) Glucose 115 H (65-110) mg/dL Calcium 9.2 (8.4-10.2) mg/dL Total Bilirubin 0.7 (0.2-1.3) mg/dL AST 31 (17-59) U/L ALT 20 (6-50) U/L Alkaline Phosphatase 104 (38-126) U/L Total Protein 8.0 (6.3-8.2) g/dL Albumin 4.2 (3.5-5.1) g/dL Urine Color Yellow (Yellow) Urine Appearance Clear (Clear) Urine pH 5.0 (5.0-9.0) Ur Specific [place] 1.009 (1.001-1.035) Urine Protein Negative (Negative) mg/dL Urine Glucose (UA) Negative (Negative) mg/dL Urine Ketones Negative (Negative) mg/dL Ur Blood (Man) 1+ H (Negative) Urine Nitrate Negative (Negative) Urine Bilirubin Negative (Negative) Urine Urobilinogen 0.2 (<2.0) mg/dL Leukocyte Esterase Rfl Negative (Negative) MICKI/UL Urine RBC 3-5 H (0-2) /hpf Urine WBC 0-5 (0-3) /hpf Ur Squamous Epith Cells None seen (Few) /hpf Urine Bacteria None seen /hpf Urine Casts 0-2 Discharge Plan Discharge Clinical Impression: Kidney stone on left side Patient Disposition: Home Condition: Improved Instructions: Kidney Stones (ED), How to Strain Your Urine (ED) Additional Instructions: RETURN IF SYMPTOMS ARE WORSENING , CALL UROLOGIST FOR APPOINTMENT, TAKE TYLENOL NEEDED FOR ACHES AND PAIN, CONTINUE HOME MEDICATIONS. Patient Language: Danish Prescriptions: New hydrocodone-acetaminophen 5-325 mg tablet 1 tablet PO Q4H Qty: 20 0RF tamsulosin [Flomax] 0.4 mg capsule 0.4 mg PO DAILY Qty: 10 0RF ondansetron 4 mg tablet,disintegrating 4 mg PO Q4H 0 Days Qty: 10 0RF Rx Instructions: 1st dose 1-2 hr before radiation No Action carvedilol [Coreg] 6.25 mg tablet 6.25 mg PO BID albuterol sulfate 90 mcg/actuation HFA aerosol inhaler 90 mcg INHALATION PRN PRN (Reason: Wheezing) Eliquis 5 mg tablet 5 mg PO Q12H Entresto 24-26 mg tablet 24 - 26 tablet PO BID furosemide 40 mg tablet 40 mg PO DAILY montelukast 10 mg tablet 10 mg PO DAILY Patient Comments: takes at 1700 alprazolam 1 mg Tablet 1 mg PO BID PRN (Reason: Anxiety) diltiazem HCl 360 mg capsule,extended release 24 hr 360 mg PO DAILY dofetilide 250 mcg capsule 250 mcg PO Q12H fluticasone propion-salmeterol [Advair Diskus] 500-50 mcg/dose blister with device 1 inh INHALATION Q12H magnesium oxide 400 mg (241.3 mg magnesium) tablet 400 mg PO BID Spiriva Respimat 1.25 mcg/actuation mist 2 puff INHALATION DAILY Follow-up/Referrals: Viridiana,NATASHA Shah [Primary Care Provider, Unknown] Adin Nicole MD [Physician, Urology] - 05/20/25
[2025-05-18] MEDS: TAMSULOSIN HCL 0.4 MG CAPSULE PO (16:03)
[2025-05-18 16:13] VITALS: BP 126/82; PULSE 71; RESP 18; O2SAT 95
[2025-05-18 18:24] VITALS: BP 120/62; PULSE 78; RESP 18; O2SAT 95
[2025-05-18] MEDS: HYDROmorphone HCL INJ (*CRX) 1 MG/ML SYR 0.5 MG IV PUSH (18:32)
[2025-05-18] MEDS: ONDANSETRON INJ 4 MG/2 ML VIAL IV PUSH (18:32)
== END 2025-05-18 19:10 | disposition home or self-care (01) ==
PROVIDERS: Student in an Organized Health Care Education/Training Program; Emergency Provider Emergency Medicine; PCP Nurse Practitioner Family
DX: N20.0 Calculus of kidney (principal); J45.909 Unspecified asthma, uncomplicated; I10 Essential (primary) hypertension; F41.9 Anxiety disorder, unspecified; Z87.442 Personal history of urinary calculi
CPT/HCPCS: 36415; 74176; 80053; 81001; 85025; 96374; 96375; 99284; A9270; J1171; J2405

== ENCOUNTER 2025-09-03 11:28 | Outpatient (CLI) | payer OTHER, SELFPAY ==
--- OUTSIDE RECORDS SUMMARY | 2025-09-03 12:10 | XMS_ITS | Clinical Summary ---
Author Organization [facility] Address [address] [place] [address] Phone Care Team Providers Care Site Physician Name Role Phone Unavailable Primary Care Provider [...] Screening 2019 Immunochemical Fecal Occult Blood 2019 Pneumococcal Immunization (5 0+ years) (1 of 1 - PCV) 2024 Zoster Immunization (1 of 2) 2024 Influenza Immunization (#1) 2025 SARS-COV-2 Immunization ( - 2024- season) 2025 Respiratory Syncytial Virus (RSV) Immunization (Adult) [...]
--- OUTSIDE RECORDS SUMMARY | 2025-09-03 12:10 | XMS_ITS | Clinical Summary ---
Author Organization [facility] Address [address] [place] [id number] Care Team Providers Care Interventional Nurse Name Role Phone Alyssa Kemp NP Primary Care Provider Dalia Bennett MD Unavailable [phone] Allergies No known active allergies Medications Eliquis 5 mg tablet Take 1 tablet (5 mg total) by mouth 2 (two) times a day 3 Active carvediloL (COREG) 6.25 mg tablet Take 1 tablet (6.25 mg total) by mouth 2 (two) times a day 4 Active Entresto 24-26 mg tablet Take 1 tablet by mouth 2 (two) times a day 4 Active furosemide (LASIX) 40 mg tablet Take 1 tablet (40 mg total) by mouth 2 (two) times a day 4 Active ALPRAZolam (XANAX) 1 mg tablet Take 1 tablet (1 mg total) by mouth 3 (three) times a day as needed for anxiety Active diltiazem (TIAZAC) 360 mg 24 hr capsule Take by mouth daily 4 Active dofetilide (TIKOSYN) 250 mcg capsule Take 1 capsule (250 mcg total) by mouth 2 (two) times a day 4 Active Spiriva Respimat 1.25 mcg/actuation inhaler INHALE 2 PUFFS BY MOUTH DAILY 4 g 5 5 Active albuterol HFA (PROVENTIL HFA,VENTOLIN HFA,PROAIR HFA) 90 mcg/actuation inhaler INHALE 2 PUFFS BY MOUTH EVERY 6 HOURS NEEDED FOR WHEEZING OR SHORTNESS OF BREATH 18 g 5 5 Active Advair Diskus 500-50 mcg/dose diskus inhaler INHALE 1 PUFF BY MOUTH TWICE DAILY. RINSE MOUTH WITH WATER AFTER USE. DO NOT SWALLOW 60 each 5 5 Active montelukast (SINGULAIR) 10 mg tablet TAKE 1 TABLET(10 MG) BY MOUTH EVERY NIGHT 30 tablet 4 5 Active magnesium oxide (MAG-OX) 400 mg (241.3 mg elemental magnesium) tablet TAKE 1 TABLET(400 MG) BY MOUTH TWICE DAILY 30 tablet 1 5 Active Active Problems Problem Noted Date Diagnosed Date HFrEF (heart failure with reduced ejection fract ion) 05/29/2025 Stage 3b chronic kidney disease 05/29/2025 Venous insufficiency of both lower extremities 0 [...] without improvement of symptoms. Kidney stone 04/12/2023 Obesity, morbid, BMI 40.0-49.9 12/08/2022 Assessment & Plan (06/05/2025 1:35 PM CDT): Discussed the patient's BMI. The BMI is above average. BMI management plan is completed. BMI Follow-up includes: nutrition counseling, exercise counseling and education provided. Assessment & Plan (04/05/2025 1:17 PM CDT): [...] provided. Assessment & Plan (10/15/2024 11:05 AM HANDLE SEWER): Discussed the patient's BMI. The BMI is above average. BMI management plan is completed. BMI Follow-up includes: nutrition counseling, exercise counseling and education provided. Assessment & Plan (04/12/2024 10:40 AM CDT): Discussed the patient's BMI. The BMI is above average. BMI management plan is completed. BMI Follow-up includes: nutrition counseling, exercise counseling and education provided. Assessment & Plan (10/13/2023 9:55 AM HANDLE SEWER): Discussed the patient's BMI. The BMI is [...] Encounters Date Type Department Care Team Description 07/08/2025 Orders Only [facility] [place] [address] [place] [id number] Scanning, Provider 06/05/2025 2:00 PM CDT Office Visit [facility] [address] [phone] Alyssa Kemp NP Physical exam (Primary Dx); Morbid obesity with BMI of 45.0-49.9, adult (HCC); Obesity, morbid, BMI 40.0-49.9 (HCC); Renal stone from Last 3 Months Immunizations Immunization Administration Dates Next Due Influenza LAIV (Nasal) 09/05/2024(Deferr ed: Patient Refused),09/05/2023(Deferred: Patient Refused) Influenza, Unspecified 10/15/2024(Deferr ed: Patient Refused),09/05/2024(Deferred: Patient [...] uit: Not Asked; Counseling Given: Not Answered Alcohol Use Standard Drinks/Week Comments Yes 0 (1 standard drink = 0.6 oz pur e alcohol) PHQ-2 Answer Date Recorded PHQ-2 Total Score (If total score is 3 or more points, staff should administer the PHQ-9) 1 06/05/2025 PHQ-9 Answer Date Recorded PHQ-9 Total Score 0 11/17/2023 AUDIT-C Answer Date Recorded Q1: How often do you have a drink containing alc ohol? Monthly or less 06/05/2025 Q2: How many drinks containi ng alcohol do you have on a typical day when you are drinking? 1 or 2 06/05/2025 Frequency of Binge Drinking Not on file 09/2024 Personal Safety Answer Date Recorded Have you [...] Sign Reading Time Taken Comments Blood Pressure 120/80 06/05/2025 1:31 PM CDT Pulse 78 06/05/2025 1:31 PM CDT Temperature 36.6 C (97.9 F) 06/05/2025 1:31 PM CDT Respiratory Rate 18 05/29/2025 1:41 PM CDT Oxygen Saturation 95% 06/05/2025 1:31 PM CDT Inhaled Oxygen Concentration - - Weight 160.6 kg (354 lb) 06/05/2025 1:31 PM CDT Height 180.3 cm (5' 11) 06/05/2025 1:31 PM CDT Body Mass Index 49.37 06/05/2025 1:31 PM CDT Plan of Treatment Health Maintenance Due Date Last Done Comments Hepatitis C Screening 1974 DTaP/Tdap/Td Vaccine (1 - Tdap) 1985 Hepatitis B Screening 1992 Zoster Vaccine (1 of 2) 2024 Influenza Vaccine (#1) 2025 Pneumococcal vaccine <65 (1 of 2 - PCV) 09/30/2025 Postponed from 1993 (Patient declined, but will receive in the future) Depression Screening 06/05/2026 06/05/2025, 04/05/2025, 11/15/2024, Additional history exists Regular Well Visit/Exam 18-06/05/2026 06/05/2025, 04/12/2024, 04/12/2023 Prostate Cancer Screening-PSA 07/27/2026 07/27/2024, 03/18/2023 Colon Cancer Screening-Colonoscopy 12/26/2033 12/27/2023, 12/27/2023 Procedures Procedure Name Priority Date/Time Associated Diagnosis Comments SCAN - RADIOLOGY/IMAGING 07/08/2025 PSA SCREEN Routine 07/27/2024 Screening for prostate cancer COLONOSCOPY Routine 12/27/2023 7:27 AM CDT from Last 3 Months or Most Recently Relevant to Health Maintenance Results * SCAN - RADIOLOGY/IMAGING (07/08/2025) Anatomical Region Laterality Modality Other Provider Scanning Final Result * PSA screen (07/27/2024) SCRIBED PSA, Serum 0.48 0.00 - 4.00 EXTERNAL LAB Blood 07/27/2024 Alyssa Kemp NP LAB BLOOD ORDERABLES Final Re sult EXTERNAL LAB * Colonoscopy (12/27/2023 7:27 AM CDT) Anatomical Region Laterality Modality Other us Historical Provider ENDOSCOPY PROCEDURES Sophie l Result from Last 3 Months or Most Recently Relevant to Health Maintenance Insurance [id number] [place] [address] [id number] [place] [address] [id number] [place] [address] Care Teams Interventional Nurse Relationship Specialty Start Date End Date Alyssa Kemp NP [address] [address] PCP - General Internal Medicine 12/08/22 Dalia Bennett MD [address] [place] [address] Consulting Physician Cardiology 11/18/23
--- OUTSIDE RECORDS SUMMARY | 2025-09-03 12:10 | XMS_ITS | Encounter Summary ---
Author Organization [facility] Address [address] [place] [address] Care Team Providers Care Zyglo Inspector Name Role Phone Alyssa Kemp NP Primary Care Provider Dalia Bennett MD Unavailable [phone] Encounter Details Date Type Department Care Team (Late st Contact Info) Description 03/13/2025 Orders Only [facility] [place] Health Information Management [address] [place] [address] Scanning, Provider Social History Tobacco Use Types [...] on filedocumented in this encounter Care Teams Zyglo Inspector Relationship Specialty Start Date End Date Alyssa Kemp NP [address] [facility] [address] [place] [address] PCP - General Internal Medicine 12/08/22 Dalia Bennett MD [address] [place] [address] Consulting Physician Cardiology 11/18/23 documented as of this encounter
[2025-09-03 12:30] LABS: Albumin Level 4.0 g/dL (3.5-5.1); Anion Gap 5 mmol/L (4-12); Blood Urea Nitrogen 31 mg/dL (9-20); Calcium 9.4 mg/dL (8.4-10.2); Carbon Dioxide 31 mmol/L (22-30); Chloride 103 mmol/L (98-107); Estimated Glomerular Filt Rate 56; Glucose 91 mg/dL (65-110); Potassium 4.1 mmol/L (3.4-5.0); Sodium 139 mmol/L (137-145)
[2025-09-03 12:43] LABS: Total Protein Urine Random < 5 mg/dL
[2025-09-03 12:44] LABS: Ur Ttl Prot Creatinine Ratio < 0.04 mg/mg (0-0.20)
[2025-09-03 12:45] LABS: Parathyroid Intact 52.5 pg/mL (14.5-75.2)
[2025-09-04 11:08] LABS: Albumin 3.4 g/dL (2.9-4.4); Alpha-1-Globulin 0.2 g/dL (0.0-0.4); Alpha-2-Globulin 0.7 g/dL (0.4-1.0); Gamma Globulin 1.1 g/dL (0.4-1.8)
[2025-09-04 19:08] LABS: Anti-GBM Antibodies <0.2 units (0.0-0.9)
== END 2025-09-03 11:29 | disposition home or self-care (01) ==
LOC: ANHLAB 11:28
PROVIDERS: PCP Nurse Practitioner Family; Visit Provider Internal Medicine Nephrology
DX: I13.0 Hypertensive heart and chronic kidney disease with heart failure and stage 1 through stage 4 chronic kidney disease, or unspecified chronic kidney disease (principal); I50.9 Heart failure, unspecified; N18.31 Chronic kidney disease, stage 3a; N25.81 Secondary hyperparathyroidism of renal origin; E55.9 Vitamin D deficiency, unspecified
CPT/HCPCS: 36415; 80069; 82306; 82570; 83970; 84155; 84156; 84165; 86364